=== PATIENT | male | born 1930 | race Caucasian/White ===

== ENCOUNTER 2017-06-30 13:04 | Day surgery (SDC) | payer MEDICARE ==
[2017-06-29 15:57] VITALS: BMI 26.6
[2017-06-30 13:55] LABS: Hematocrit 44.3 % (42.0-52.0); Mean Platelet Volume 6.5 fL (7.4-10.4); Red Blood Cell (RBC) Count 4.46 mill/uL (4.70-6.10); White Blood Cell (WBC) Count 20.5 thou/uL (4.8-10.8)
[2017-06-30 13:59] LABS: PTT 36.8 SEC (22.9-36.1); Prothrombin Time 15.2 SEC (12.0-14.7)
[2017-06-30 14:11] LABS: Band 1 % (5-11); Neutrophil 23 % (42-75); Reactive Lymphocytes 7 % (0-10)
[2017-06-30 14:17] LABS: ALT (SGPT) 19 U/L (8-55); AST (SGOT) 20 U/L (5-34); Alkaline Phosphatase 62 U/L (40-150); Anion Gap 11 mmol/L (10-20); BUN (Urea Nitrogen) 22 mg/dL (8.4-25.7); Bilirubin, Total 1.8 mg/dL (0.2-1.2); Calc. Creatinine Clearance 69 mL/min (70-130); Calcium 9.4 mg/dL (7.8-10.44); Carbon Dioxide 27 mmol/L (23-31); Chloride 102 mmol/L (98-107); Estimated GFR-MDRD 68; Globulin 2.6 g/dL (2.4-3.5); Protein, Total 6.9 g/dL (5.8-8.1)
[2017-06-30] MEDS ORDERED: Diprivan 20 ML ONE (14:39)
[2017-06-30] MEDS ORDERED: Propofol 200 MG/20 ML VIAL ONE (16:56)
--- NOTE | 2017-06-30 22:30 | OP ---
DATE OF PROCEDURE: 06/30/2017 REASON FOR PROCEDURE: Mr. Santos is an 86-year-old man with prior history of left atrial ablation p rocedalvino who has been well anticoagulated. Now, presents with recurrent atrial flutter here for a ca rdioversion. PROCEDURE IN DETAIL: The patient received deep sedation per Anesthesia specialist. After adequate l evel of sedation achieved, a 100 joule synchronized shock promptly converted the patient back to sinu s rhythm. CONCLUSION: Successful cardioversion. PLAN: Continue anticoagulation and consider antiarrhythmic agents if symptomatic atrial fibrillation or flutter recurs.
--- NOTE | 2017-07-01 07:47 | EKG ---
Test Reason : PREOP CARDIOVERSION Blood Pressure : / mmHG Vent. Rate : 075 BPM Atrial Rate : 300 BPM P-R Int : 000 ms QRS Dur : 080 ms QT Int : 422 ms P-R-T Axes : 106 -17 011 degrees QTc Int : 471 ms Atrial flutter with variable A-V block with premature ventricular or aberrantly conducted complexes Abnormal ECG When compared with ECG of 10-NOV-2014 10:37, ST now depressed in Inferior leads Nonspecific T wave abnormality now evident in Inferior leads Confirmed by MARICHUY CONRAD ([id number]) on 07/01/2017 7:47:17 AM Referred By: JOELLE Confirmed By:MARICHUY CONRAD
== END 2017-06-30 15:55 | disposition home or self-care (01) ==
LOC: CCL 13:04
PROVIDERS: ATTEND Internal Medicine Cardiovascular Disease
DX: I48.1 Persistent atrial fibrillation (principal); G47.33 Obstructive sleep apnea (adult) (pediatric); E78.5 Hyperlipidemia, unspecified; I10 Essential (primary) hypertension; F17.210 Nicotine dependence, cigarettes, uncomplicated; Z88.0 Allergy status to penicillin; Z79.01 Long term (current) use of anticoagulants; Z79.899 Other long term (current) drug therapy; Z99.89 Dependence on other enabling machines and devices
CPT/HCPCS: 36415; 80053; 85025; 85610; 85730; 92960; 93005; 93010; J2704

== ENCOUNTER 2019-03-22 08:16 | Day surgery (SDC) | payer MEDICARE ==
[2019-03-21 11:59] VITALS: BMI 25.0
--- NOTE | 2019-03-22 14:48 | OP ---
DATE OF PROCEDURE: 03/22/19 SURGEON: Jonathan Khoury M.D. PROCEDURE: Direct current cardioversion. INDICATION: Atypical atrial flutter. The patient has been compliant with his Xarelto for many months. We discussed the risks of electrical cardioversion - , worst heart rhythm, skin vyas, stroke, embolic event, etc. Patient was sedated by anesthesia. With 50 joules he returned to sinus rhythm with long first degree AV block. Patient tolerated the procedure well.
[2019-03-22] MEDS ORDERED: PROPOFOL 200 MG/20 ML VIAL ONE (17:00)
== END 2019-03-22 12:24 | disposition home or self-care (01) ==
LOC: CCL 08:16
PROVIDERS: ATTEND Internal Medicine Cardiovascular Disease
PROC: 5A2204Z Restoration of Cardiac Rhythm, Single (ICD-10-PCS; principal; 2019-03-22)
DX: I48.4 Atypical atrial flutter (principal); I48.0 Paroxysmal atrial fibrillation; I10 Essential (primary) hypertension; I34.0 Nonrheumatic mitral (valve) insufficiency; I83.019 Varicose veins of right lower extremity with ulcer of unspecified site; L97.919 Non-pressure chronic ulcer of unspecified part of right lower leg with unspecified severity; I49.9 Cardiac arrhythmia, unspecified; E78.00 Pure hypercholesterolemia, unspecified; G47.33 Obstructive sleep apnea (adult) (pediatric); E03.9 Hypothyroidism, unspecified; Z79.899 Other long term (current) drug therapy; Z79.01 Long term (current) use of anticoagulants; Z98.890 Other specified postprocedural states; Z87.891 Personal history of nicotine dependence; Z88.0 Allergy status to penicillin; Z99.89 Dependence on other enabling machines and devices
CPT/HCPCS: 93005; 93010; J2704

== ENCOUNTER 2019-08-04 14:29 | Inpatient (IN) | payer MEDICARE ==
[2019-08-04] MEDS ORDERED: Fentanyl 100 MCG/2 ML VIAL ONE (15:38)
[2019-08-04] MEDS ORDERED: Sodium Chloride 0.9% 1,000 ML IV SCH (19:47)
[2019-08-04] MEDS ORDERED: Ondansetron PF 4 MG/2 ML Vial IVP PRN (21:05)
[2019-08-04] MEDS ORDERED: Sodium Chloride 0.9% 500 ML IV SCH (21:15)
[2019-08-04 21:40] LABS: Lactic Acid 1.6 mmol/L (0.5-2.2)
[2019-08-04] MEDS: Sodium Chloride 0.9% 1,000 ML IV SCH (21:52)
[2019-08-04] MEDS ORDERED: MEROPENEM 1 GM/50 ML 1 GM in Premix Bag 1 BAG IVPB SCH (22:00)
--- NOTE | 2019-08-04 22:16 | HP ---
CHIEF COMPLAINT: Referral to ED by home healthcare nurse. HISTORY OF PRESENT ILLNESS: An 89-year-old male with multiple recent hospitalizations recently discharged on 07/19/2019 following hospitalization for acute urinary retention secondary to bladder outlet obstruction from BPH with multiple unsuccessful traumatic Valle catheter insertions complicated by gross hematuria, on oral anticoagulation, requiring indwelling Valle catheter placement in OR by urologist along with reduction of paraphimosis and subsequent discontinuation of oral anticoagulation, history of CLL, atrial fibrillation, hypertension, who was referred to a tertiary ER by home health care nurse for abnormal appearing Valle catheter bag prompting further evaluation. Details are limited and obtained from review of old chart documentation. In the ER, labs revealed a white blood cell count of 33.3 with 56% lymphocytes and 40% neutrophils, and chemistries revealed sodium 131, chloride 93, bicarb of 22 with anion gap of 20 and BUN and creatinine of 50/2.35. Urine output was noted to be dark and cloudy with urine in the Valle bag dark red per ER notes. The patient was bolused 1 L normal saline, administered 1 g IV Rocephin, and transferred to [facility] for further evaluation. In the emergency room, the patient was initiated on isotonic saline 100 mL/h and received 100 mcg of fentanyl with blood pressures ranging from 100 to 120s per documentation. Lactic acid level was unremarkable. Upon evaluation at bedside, the patient's blood pressures ranged from 80s to 90s systolic and the patient is in Trendelenburg position. He is easily arousable to verbal and tactile stimuli and answers appropriately and denies any complaints of headache, dizziness, lightheadedness, near-syncope, syncope, angina, confusion, or disorientation, but easily just off to sleep. Nursing staff notes 100 mcg of fentanyl was administered approximately 5 hours ago. The patient is currently receiving 500 mL normal saline bolus. He has Valle catheter bag with clear yellow-colored urine, approximately 525 mL that is being emptied. The patient denies any penile pain. He acknowledges living at home alone. He denies any complaints of falls or confusion. He does offer limited history about recent events and details. 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 PAST SURGICAL HISTORY: Indwelling Valle catheter placement, 07/15/2019, in OR following multiple unsuccessful attempts along with reduction of paraphimosis, cervical fusion, tonsillectomy. SOCIAL HISTORY: The patient reports living at home alone. He has home health care services. He reports that he still drives and performs activities of living by himself. He was recently discharged from acute inpatient rehabilitation. ALLERGIES: DOCUMENTED TO PENICILLINS. REVIEW OF SYSTEMS: Limited review of systems obtained from the patient. Pertinent positives noted as per HPI. Remainder of review of systems negative. MEDICATIONS: We will review once accurate verification can be obtained per admission medication reconciliation. FAMILY HISTORY: The patient denies any chronic medical comorbidities in family members. PHYSICAL EXAMINATION: VITAL SIGNS: T-max afebrile at 97.9; pulse is 69 to 78, atrial fibrillation; blood pressure initially documented in the ER ranged from 98/55 to 128/81. Current blood pressure 83/52, oxygen saturation 99% on room air, and respirations 14 to 16 and unlabored. GENERAL APPEARANCE: Thin, elderly male, drowsy in appearance, lying in Trendelenburg position, is easily arousable to verbal and noxious stimuli. Answering appropriately. HEENT: Normocephalic and atraumatic. Pupils equally round. Extraocular muscles intact. No facial asymmetry. NECK: Supple. CARDIOVASCULAR: S1 and S2. Irregularly irregular. No harsh murmurs. No chest wall tenderness. LUNGS: Bilateral equal air entry on bilateral anterior auscultation. Nonlabored respirations. No wheezing or rales. ABDOMEN: Soft, nontender, nondistended. EXTREMITIES: No appreciable edema in lower extremities. No cyanosis or deformities. SKIN: Warm to touch without rash, pallor, or abrasion. GENITOURINARY: There is indwelling Valle catheter noted currently with yellow-colored urine. There is no penile tenderness to palpation with overlying foreskin noted. There is some mild drainage at the penile tip is noted. LABORATORY DATA: Urinalysis reveals large blood, positive nitrites, moderate bilirubin, moderate leukocyte esterases, greater than 50 rbc's, 21 to 50 wbc's, 2+ bacteria, 4 to 6 squamous epithelial cells. Chemistry; sodium 131, potassium 4.3, chloride 93, bicarb 22, glucose 77, BUN and creatinine 50/2.35, T bilirubin 2.5, CK 703, lactic acid 1.4, albumin 3.5. WBC 33.3, H and H 12.5/39, differential reveals 56% lymphocytes, 40% neutrophils. IMAGING: None. ASSESSMENT: 1. Urinary tract infection secondary to chronic indwelling Valle catheter present on admission. The patient will be admitted as inpatient status. He recently had placement of indwelling Valle catheter secondary to acute urinary retention from bladder outlet obstruction, requiring urology intervention in the OR due to prior traumatic insertion and difficulty in placement. Records from outside ER facility notes urine is dark and cloudy in appearance and urinalysis suggesting concerns for gross urinary tract infection and gross hematuria. At this time, we will continue indwelling Valle catheter in place as yellow-colored urine is noted. We will continue IV fluids, IV antibiotics with Rocephin 1 g daily, follow urine cultures, and monitor for appropriate bladder emptying. I asked the nurse to monitor for any urine retention with bladder scan. We will monitor renal function. 2. Severe hypotension of unspecified etiology, possibly from #1 or from IV opioid administration in ER with 100 mcg of fentanyl in this elderly male. We will bolus 500 mL of normal saline and monitor for improvement in blood pressure. We will trend lactic acid levels to ensure no ongoing concerns for sepsis. If necessary, we will administer IV Narcan. 3. Acute kidney injury suspect secondary to prerenal etiology. Bladder outlet obstruction must be considered in this patient with recent placement of indwelling Valle catheter secondary to urinary retention. Currently, Valle catheter bag has yellow-colored urine, but was noted to have dark cloudy urine with gross hematuria and also in the ER. The patient was stopped off anticoagulation during recent hospitalization and unclear if he has been resuming this at home or not. We will repeat a.m. labs. 4. Hyponatremia, continue IV fluid resuscitation. Suspect secondary to dehydration and intravascular depletion. Check a.m. labs. 5. 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 The patient has a history of leukocytosis with lymphocyte predominance. 6. Chronic atrial fibrillation. The patient is currently in ventricular rate control. Hold oral anticoagulation, noting recent concerns for gross hematuria. 7. Generalized weakness and deconditioning. We will consult PT and OT. 8. History of hypothyroidism. Continue levothyroxine. 9. Deep venous thrombosis prophylaxis: Bilateral lower extremity sequential compression devices. 10. Check a.m. labs on 08/05/2019. CODE STATUS: Unspecified. The patient will be remained full code at this time. The patient reports the surrogate decision maker is daughter, Sandra. DISPOSITION: Inpatient admission. Anticipate greater than 2-minute stay. Job ID: [id number]
[2019-08-04] MEDS: cefTRIAXone\\ROCEPHIN 1 GM in Sodium Chloride 0.9% 100 ML IVPB SCH (22:45)
[2019-08-04 23:24] VITALS: BMI 25.3
[2019-08-05] MEDS: Sodium Chloride 0.9% 1,000 ML IV SCH (00:32)
[2019-08-05] MEDS: Acetaminophen 325 MG TAB PO PRN (04:50)
[2019-08-05 06:03] LABS: Anion Gap 10 mmol/L (10-20); BUN (Urea Nitrogen) 29 mg/dL (8.4-25.7); Calc. Creatinine Clearance 66 mL/min (70-130); Calcium 7.9 mg/dL (7.8-10.44); Carbon Dioxide 25 mmol/L (23-31); Chloride 102 mmol/L (98-107); Estimated GFR-MDRD 72; Glucose 80 mg/dL (83-110); Potassium 3.1 mmol/L (3.5-5.1); Sodium 134 mmol/L (136-145)
[2019-08-05 06:10] LABS: Eosinophils 1 % (0-10); Hemoglobin 11.4 g/dL (14.0-18.0); Lymphocytes 51 % (21-51); MDiff Complete? YES; Mean Corpuscular HGB CONC 33.6 g/dL (32.0-36.0); Mean Corpuscular Hemoglobin 31.8 pg (27.0-31.0); Mean Corpuscular Volume 94.6 fL (78.0-98.0); Monocytes 5 % (0-10); Neutrophil 43 % (42-75); Platelet Count 174 thou/uL (130-400); RBC Distribution Width 12.3 % (11.5-14.5); White Blood Cell (WBC) Count 20.7 thou/uL (4.8-10.8)
[2019-08-05] MEDS: Potassium Chloride 20 MEQ TAB PO SCH ×2 (13:14→16:40)
--- NOTE | 2019-08-05 13:59 | PRG ---
DATE OF SERVICE: 08/05/2019 SUBJECTIVE: The patient is seen and examined at the bedside. He does not have much complaints to offer. He does not have much pain. His appetite is fair. OBJECTIVE: VITAL SIGNS: Blood pressure is 100/61, pulse is 67, temperature is 98, maximal temperature is 98, respiratory rate is 18, and O2 saturation is 95% on room air. HEENT: Head is atraumatic and normocephalic. Eyes are PERRLA. Sclerae are nonicteric. Oral mucosa is moist. NECK: Supple. LUNGS: Breath sounds diminished at both bases. HEART: S1 and S2 normal. Somewhat irregular. No S3. No S4. ABDOMEN: Soft, nontender. Bowel sounds are present. No organomegaly. EXTREMITIES: 1+ peripheral edema similar bilaterally on both lower extremities. Valle catheter is in, yellowish urine present in the bag. LABORATORY DATA: White count of 20.7, hemoglobin 11.4, hematocrit 34.0, platelet count is 174,000. Chemistry showed sodium of 134, potassium 3.1, chloride 102, CO2 of 25, BUN 29, creatinine 0.98, glucose 80, calcium 7.9, magnesium 2.0. Microbiology, urine culture negative, two blood cultures negative so far. IMPRESSION: 1. Suspected urinary tract infection secondary to chronic indwelling Valle catheter. Questionable diagnosis at this point since urine culture is negative for any growth, although we will continue antibiotic for additional 24 hours and if it is still negative tomorrow, we will discontinue and the patient will be sent home. 2. Severe hypotension of unspecified etiology and most likely related to opioids use and some dehydration. 3. Elevated BUN, which is suggestive of some dehydration unless there is some GI blood loss. 4. Hypokalemia for replacement. We will give him 40 mEq of KCl now and 40 in 4 hours. We will reconcile his home medications and continue his Valle catheter management. If he is stable in the next 24 hours, he will be discharged home. 5. Hyponatremia, improved. 6. Chronic lymphocytic leukemia. 7. Chronic atrial fibrillation. We will restart his anticoagulation when his hemoglobin and blood pressure is more stable. 8. History of hypothyroidism on levothyroxine replacement. Job ID: [id number]
[2019-08-05] MEDS: Rivaroxaban 10 MG TAB PO SCH (16:39)
[2019-08-05] MEDS: Bisacodyl 10 MG SUPP PR PRN (16:40)
[2019-08-05] MEDS ORDERED: Non-Formulary Item 1 EACH (Rivaroxaban [Xarelto] 20 MG) PO SCH (17:00)
[2019-08-05] MEDS: Trospium 20 MG TAB PO SCH (22:14)
[2019-08-05] MEDS: Atorvastatin Calcium 10 MG TAB PO SCH (22:14)
[2019-08-05] MEDS: cefTRIAXone\\ROCEPHIN 1 GM in Sodium Chloride 0.9% 100 ML IVPB SCH (22:19)
[2019-08-05] MEDS ORDERED: Senokot 8.6 MG TAB PO PRN (23:00)
[2019-08-05] MEDS ORDERED: Polyethylene Glycol 3350 17 GM Packet PO SCH (23:15)
[2019-08-05] MEDS: Zolpidem Tartrate 5 MG TAB PO SCH (23:24)
[2019-08-06] MEDS: Levothyroxine Sodium 50 MCG TAB PO SCH (06:25)
[2019-08-06] MEDS: Acetaminophen 325 MG TAB PO PRN ×2 (06:34→14:17)
[2019-08-06 06:51] LABS: Band 1 % (5-11); Hemoglobin 11.8 g/dL (14.0-18.0); Hypochromia SLIGHT = 6-15 cells (100X) (0-5/hpf); Lymphocytes 63 % (21-51); MDiff Complete? YES; Mean Corpuscular HGB CONC 33.4 g/dL (32.0-36.0); Mean Corpuscular Hemoglobin 31.9 pg (27.0-31.0); Mean Corpuscular Volume 95.5 fL (78.0-98.0); Mean Platelet Volume 6.9 fL (7.4-10.4); Monocytes 2 % (0-10); Neutrophil 34 % (42-75); Platelet Count 194 thou/uL (130-400); Platelet Morphology Comment Appears Adequate; RBC Distribution Width 12.4 % (11.5-14.5); Red Blood Cell (RBC) Count 3.69 mill/uL (4.70-6.10); White Blood Cell (WBC) Count 21.7 thou/uL (4.8-10.8)
[2019-08-06 06:52] LABS: Anion Gap 11 mmol/L (10-20); BUN (Urea Nitrogen) 23 mg/dL (8.4-25.7); Calc. Creatinine Clearance 91 mL/min (70-130); Calcium 8.1 mg/dL (7.8-10.44); Carbon Dioxide 25 mmol/L (23-31); Chloride 103 mmol/L (98-107); Estimated GFR-MDRD Greater than 90; Glucose 91 mg/dL (83-110); Potassium 4.1 mmol/L (3.5-5.1); Sodium 135 mmol/L (136-145)
[2019-08-06] MEDS: Polyethylene Glycol 3350 17 GM Packet PO SCH (07:52)
[2019-08-06] MEDS: Trospium 20 MG TAB PO SCH ×2 (07:52→20:32)
[2019-08-06] MEDS ORDERED: Tamsulosin HCl 0.4 MG CAP PO SCH (09:00)
[2019-08-06] MEDS ORDERED: Hydrochlorothiazide 25 MG TAB PO SCH (09:00)
--- NOTE | 2019-08-06 12:22 | PDOC.HOSPP ---
- Subjective Encounter Date: 08/06/19 Encounter Time: 09:35 Subjective: +Constipation.. - Objective Vital Signs & Weight: Vital Signs (12 hours) Temp Pulse Resp BP BP Pulse Ox 08/06/19 12:13 97.3 F L 80 18 132/83 97 08/06/19 07:58 97.9 F 77 18 113/73 95 08/06/19 07:20 97.9 F 77 18 113/75 95 08/06/19 04:43 97.8 F 86 18 104/61 96 Weight Admit Weight 197 lb 3.2 oz Weight 197 lb 3.2 oz I&O: 08/05/19 08/06/19 08/07/19 06:59 06:59 06:59 Intake Total 1790 800 Output Total 4325 Balance -2535 800 Result Diagrams: 08/06/19 06:08 08/06/19 06:08 Hospitalist ROS - Medication Medications: Active Medications Generic Name Dose Route Start Last Admin Trade Name Freq PRN Reason Stop Dose Admin Acetaminophen 650 mg 08/04/19 21:05 08/06/19 06:34 Tylenol PO 650 mg Q4H PRN Administration Headache/Fever/Mild Pain (1-3) Atorvastatin Calcium 10 mg 08/05/19 21:00 08/05/19 22:14 Lipitor PO 10 mg HS MICHELLE Administration Bisacodyl 10 mg 08/05/19 15:48 08/05/19 16:40 Dulcolax HI 10 mg Q8H PRN Administration Constipation Ceftriaxone Sodium 1 gm/ 100 mls @ 200 mls/hr 08/04/19 22:00 08/05/19 22:19 Sodium Chloride IVPB 100 mls Q24HR MICHELLE Administration Levothyroxine Sodium 50 mcg 08/06/19 06:00 08/06/19 06:25 Synthroid PO 50 mcg 0600 MICHELLE Administration Polyethylene Glycol 17 gm 08/06/19 09:00 08/06/19 07:52 Miralax PO 17 gm DAILY MICHELLE Administration Rivaroxaban 20 mg 08/05/19 17:00 08/05/19 16:39 Xarelto PO 20 mg 1700 MICHELLE Administration Sodium Chloride 10 ml 08/04/19 21:00 08/06/19 07:52 Flush - Normal Saline IVF 10 ml Q12HR MICHELLE Administration Trospium 20 mg 08/05/19 21:00 08/06/19 07:52 Trospium PO 20 mg BID MICHELLE Administration Zolpidem Tartrate 10 mg 08/05/19 21:00 08/05/19 23:24 Ambien PO 10 mg HS MICHELLE Administration - Exam General Appearance: NAD Neck: no JVD Heart: irregular Respiratory: CTAB Gastrointestinal: soft Extremities: no edema Neurological: no weakness Psychiatric: normal affect Hosp A/P (1) UTI (urinary tract infection) Status: Acute (2) Hyponatremia Code(s): E87.1 - HYPO-OSMOLALITY AND HYPONATREMIA Status: Acute Plan: improving.. (3) Hypokalemia Code(s): E87.6 - HYPOKALEMIA Status: Acute Plan: Resolved.. (4) CLL (chronic lymphocytic leukemia) Code(s): C91.10 - CHRONIC LYMPHOCYTIC LEUK OF B-CELL TYPE NOT ACHIEVE REMIS Status: Chronic (5) Chronic anticoagulation Code(s): Z79.01 - ELIGIBILITY AND OCCUPANCY INTERVIEWER (CURRENT) USE OF ANTICOAGULANTS Status: Chronic (6) Hypothyroid Code(s): E03.9 - HYPOTHYROIDISM, UNSPECIFIED Status: Chronic (7) Leukocytosis Code(s): D72.829 - ELEVATED WHITE BLOOD CELL COUNT, UNSPECIFIED Status: Chronic Qualifiers: Leukocytosis type: lymphocytosis Qualified Code(s): D72.820 - Lymphocytosis (symptomatic) Plan: due to CLL - Plan Continue antibiotics.. f/u cultures..
[2019-08-06] MEDS: Rivaroxaban 10 MG TAB PO SCH (16:55)
[2019-08-06] MEDS: Bisacodyl 10 MG SUPP PR PRN (18:41)
[2019-08-06] MEDS: Atorvastatin Calcium 10 MG TAB PO SCH (20:32)
[2019-08-06] MEDS: cefTRIAXone\\ROCEPHIN 1 GM in Sodium Chloride 0.9% 100 ML IVPB SCH (20:39)
[2019-08-06] MEDS: Zolpidem Tartrate 5 MG TAB PO SCH (21:38)
[2019-08-07] MEDS: Levothyroxine Sodium 50 MCG TAB PO SCH (05:54)
[2019-08-07] MEDS: Trospium 20 MG TAB PO SCH ×2 (07:54→21:17)
[2019-08-07] MEDS: Polyethylene Glycol 3350 17 GM Packet PO SCH (07:54)
--- NOTE | 2019-08-07 10:43 | PDOC.HOSPP ---
- Subjective Encounter Date: 08/07/19 Encounter Time: 10:40 Subjective: No new complaint.. - Objective Vital Signs & Weight: Vital Signs (12 hours) Temp Pulse Resp BP BP Pulse Ox 08/07/19 08:00 98.0 F 08/07/19 07:54 98.0 F 76 18 157/88 H 98 08/07/19 00:00 97.9 F 83 16 149/89 H 96 Weight Admit Weight 197 lb 3.2 oz Weight 197 lb 3.2 oz I&O: 08/06/19 08/07/19 08/08/19 06:59 06:59 06:59 Intake Total 1790 2550 240 Output Total 4325 2800 Balance -2535 -250 240 Result Diagrams: 08/06/19 06:08 08/06/19 06:08 Hospitalist ROS - Medication Medications: Active Medications Generic Name Dose Route Start Last Admin Trade Name Freq PRN Reason Stop Dose Admin Acetaminophen 650 mg 08/04/19 21:05 08/06/19 14:17 Tylenol PO 650 mg Q4H PRN Administration Headache/Fever/Mild Pain (1-3) Atorvastatin Calcium 10 mg 08/05/19 21:00 08/06/19 20:32 Lipitor PO 10 mg HS MICHELLE Administration Bisacodyl 10 mg 08/05/19 15:48 08/06/19 18:41 Dulcolax [place] 10 mg Q8H PRN Administration Constipation Ceftriaxone Sodium 1 gm/ 100 mls @ 200 mls/hr 08/04/19 22:00 08/06/19 20:39 Sodium Chloride IVPB 100 mls Q24HR MICHELLE Administration Levothyroxine Sodium 50 mcg 08/06/19 06:00 08/07/19 05:54 Synthroid PO 50 mcg 0600 MICHELLE Administration Polyethylene Glycol 17 gm 08/06/19 09:00 08/07/19 07:54 Miralax PO 17 gm DAILY MICHELLE Administration Rivaroxaban 20 mg 08/05/19 17:00 08/06/19 16:55 Xarelto PO 20 mg 1700 MICHELLE Administration Sodium Chloride 10 ml 08/04/19 21:00 08/07/19 07:56 Flush - Normal Saline IVF 10 ml Q12HR MICHELLE Administration Trospium 20 mg 08/05/19 21:00 08/07/19 07:54 Trospium PO 20 mg BID MICHELLE Administration Zolpidem Tartrate 10 mg 08/05/19 21:00 08/06/19 21:38 Ambien PO 10 mg HS MICHELLE Administration - Exam Neck: no JVD Heart: irregular Respiratory: no ronchi Gastrointestinal: soft Extremities: 1+ LE edema Neurological: no weakness Psychiatric: normal affect Hosp A/P (1) UTI (urinary tract infection) Status: Acute (2) Hyponatremia Code(s): E87.1 - HYPO-OSMOLALITY AND HYPONATREMIA Status: Acute (3) CLL (chronic lymphocytic leukemia) Code(s): C91.10 - CHRONIC LYMPHOCYTIC LEUK OF B-CELL TYPE NOT ACHIEVE REMIS Status: Chronic (4) Chronic anticoagulation Code(s): Z79.01 - 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 (6) Leukocytosis Code(s): D72.829 - ELEVATED WHITE BLOOD CELL COUNT, UNSPECIFIED Status: Chronic Qualifiers: Leukocytosis type: lymphocytosis Qualified Code(s): D72.820 - Lymphocytosis (symptomatic) Plan: Due to CLL - Plan Hyponatremia improving. Continue antibiotics.. f/u cultures..
[2019-08-07] MEDS: Rivaroxaban 10 MG TAB PO SCH (16:43)
[2019-08-07] MEDS: Bisacodyl 10 MG SUPP PR PRN (16:48)
[2019-08-07] MEDS: cefTRIAXone\\ROCEPHIN 1 GM in Sodium Chloride 0.9% 100 ML IVPB SCH (21:16)
[2019-08-07] MEDS: Atorvastatin Calcium 10 MG TAB PO SCH (21:17)
[2019-08-07] MEDS: Zolpidem Tartrate 5 MG TAB PO SCH (22:27)
[2019-08-08] MEDS: Levothyroxine Sodium 50 MCG TAB PO SCH (05:12)
[2019-08-08 05:32] LABS: Anion Gap 10 mmol/L (10-20); BUN (Urea Nitrogen) 15 mg/dL (8.4-25.7); Calc. Creatinine Clearance 82 mL/min (70-130); Calcium 8.4 mg/dL (7.8-10.44); Carbon Dioxide 27 mmol/L (23-31); Chloride 100 mmol/L (98-107); Estimated GFR-MDRD Greater than 90; Glucose 91 mg/dL (83-110); Potassium 4.1 mmol/L (3.5-5.1); Sodium 133 mmol/L (136-145)
[2019-08-08] MEDS: Trospium 20 MG TAB PO SCH ×2 (08:08→20:17)
[2019-08-08] MEDS: Polyethylene Glycol 3350 17 GM Packet PO SCH (08:09)
--- NOTE | 2019-08-08 12:20 | PDOC.HOSPP ---
- Subjective Encounter Date: 08/08/19 Encounter Time: 12:18 Subjective: alert, just weak and shaky - Objective Vital Signs & Weight: Vital Signs (12 hours) Temp Pulse Resp BP BP Pulse Ox 08/08/19 11:56 97.7 F 87 18 124/74 96 08/08/19 08:29 98.6 F 66 18 145/77 H 94 L 08/08/19 08:14 93 L 08/08/19 04:00 98 F 76 16 119/65 93 L Weight Admit Weight 197 lb 3.2 oz Weight 197 lb 3.2 oz I&O: 08/07/19 08/08/19 08/09/19 06:59 06:59 06:59 Intake Total 2550 2190 Output Total 2800 3120 Balance -250 -930 Result Diagrams: 08/06/19 06:08 08/08/19 04:58 Hospitalist ROS - Medication Medications: Active Medications Generic Name Dose Route Start Last Admin Trade Name Freq PRN Reason Stop Dose Admin Acetaminophen 650 mg 08/04/19 21:05 08/06/19 14:17 Tylenol PO 650 mg Q4H PRN Administration Headache/Fever/Mild Pain (1-3) Atorvastatin Calcium 10 mg 08/05/19 21:00 08/07/19 21:17 Lipitor PO 10 mg HS MICHELLE Administration Bisacodyl 10 mg 08/05/19 15:48 08/07/19 16:48 Dulcolax [place] 10 mg Q8H PRN Administration Constipation Ceftriaxone Sodium 1 gm/ 100 mls @ 200 mls/hr 08/04/19 22:00 08/07/19 21:16 Sodium Chloride IVPB 100 mls Q24HR MICHELLE Administration Levothyroxine Sodium 50 mcg 08/06/19 06:00 08/08/19 05:12 Synthroid PO 50 mcg 0600 MICHELLE Administration Polyethylene Glycol 17 gm 08/06/19 09:00 08/08/19 08:09 Miralax PO 17 gm DAILY MICHELLE Administration Rivaroxaban 20 mg 08/05/19 17:00 08/07/19 16:43 Xarelto PO 20 mg 1700 MICHELLE Administration Sodium Chloride 10 ml 08/04/19 21:00 08/08/19 08:09 Flush - Normal Saline IVF 10 ml Q12HR MICHELLE Administration Trospium 20 mg 08/05/19 21:00 08/08/19 08:08 Trospium PO 20 mg BID MICHELLE Administration Zolpidem Tartrate 10 mg 08/05/19 21:00 08/07/19 22:27 Ambien PO 10 mg HS MICHELLE Administration - Exam Neck: no JVD Heart: no murmur, irregular Respiratory: CTAB Gastrointestinal: soft, normal bowel sounds Extremities: no edema Hosp A/P (1) Acute renal failure Status: Resolved Qualifiers: Acute renal failure type: unspecified Qualified Code(s): N17.9 - Acute kidney failure, unspecified (2) UTI (urinary tract infection) Status: Acute Qualifiers: Urinary tract infection type: acute cystitis Hematuria presence: with hematuria Qualified Code(s): N30.01 - Acute cystitis with hematuria (3) CLL (chronic lymphocytic leukemia) Code(s): C91.10 - CHRONIC LYMPHOCYTIC LEUK OF B-CELL TYPE NOT ACHIEVE REMIS Status: Chronic (4) Chronic anticoagulation Code(s): Z79.01 - SPORTS FITNESS AND WELLNESS DIRECTOR (CURRENT) USE OF ANTICOAGULANTS Status: Chronic (5) Hypothyroid Code(s): E03.9 - HYPOTHYROIDISM, UNSPECIFIED Status: Chronic Qualifiers: Hypothyroidism type: unspecified Qualified Code(s): E03.9 - Hypothyroidism , unspecified - Plan unfortunately cultures ars neg will cont iv antibx cont home meds PT/OT consult think
--- NOTE | 2019-08-08 16:22 | PQF ---
CLINICAL DOCUMENTATION IMPROVEMENT CLARIFICATION FORM: ICD-10 Updated PLEASE DO AN ADDENDUM TO THE PROGRESS NOTE WITH ANY DOCUMENTATION UPDATES OR ADDITIONS AND CARRY THROUGH TO DC SUMMARY. THANK YOU. DATE: 08/08/19 ATTN : DR. GAYLE Please exercise your independent, professional judgment in responding to the clarification form. Clinical indicators are provided on the bottom of this form for your review Please check appropriate box(es): [ ] Sepsis due to: (Pna, UTI, gangrenous gall bladder, etc.) Due to: [ ] Device (please specify) [ ] Implant [ ] Graft [ ] Infusion [ ] SIRS due to non-infectious process (please specify etiology) [ ] with organ dysfunction [ ] without organ dysfunction [ ] Severe sepsis with acute organ dysfunction of: (Examples: respiratory failure, encephalopathy, acute kidney failure, other) [ ] Septic Shock [ ] Localized infection without sepsis [ ] Other diagnosis [ x ] Unable to determine In addition, please specify: Present on Admission (POA): [ ] Yes [ ] No [ ] Unable to determine For continuity of documentation, please document condition throughout progress notes and discharge summary. Thank You. 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 All Rights Reserved Olya Conlee, RN [email or web address] Office: [phone] [facility]
[2019-08-08] MEDS: Rivaroxaban 10 MG TAB PO SCH (17:17)
[2019-08-08] MEDS: Atorvastatin Calcium 10 MG TAB PO SCH (20:16)
[2019-08-08] MEDS: Zolpidem Tartrate 5 MG TAB PO SCH (20:18)
[2019-08-08] MEDS: cefTRIAXone\\ROCEPHIN 1 GM in Sodium Chloride 0.9% 100 ML IVPB SCH (21:17)
[2019-08-09] MEDS: Levothyroxine Sodium 50 MCG TAB PO SCH (05:09)
[2019-08-09] MEDS: Polyethylene Glycol 3350 17 GM Packet PO SCH (07:56)
[2019-08-09] MEDS: Trospium 20 MG TAB PO SCH ×2 (07:56→20:03)
[2019-08-09 11:39] LABS: Eosinophils 2 % (0-10); Hemoglobin 13.3 g/dL (14.0-18.0); Lymphocytes 72 % (21-51); MDiff Complete? YES; Mean Corpuscular HGB CONC 33.7 g/dL (32.0-36.0); Mean Corpuscular Volume 95.1 fL (78.0-98.0); Mean Platelet Volume 6.6 fL (7.4-10.4); Monocytes 2 % (0-10); Neutrophil 23 % (42-75); Platelet Count 258 thou/uL (130-400); Platelet Morphology Comment Appears Adequate; RBC Distribution Width 12.6 % (11.5-14.5); RBC Morphology Normal; Reactive Lymphocytes 1 % (0-10); Red Blood Cell (RBC) Count 4.14 mill/uL (4.70-6.10); White Blood Cell (WBC) Count 33.9 thou/uL (4.8-10.8)
--- NOTE | 2019-08-09 13:12 | PDOC.HOSPP ---
- Subjective Encounter Date: 08/09/19 Encounter Time: 13:11 Subjective: no CO - Objective Vital Signs & Weight: Vital Signs (12 hours) Temp Pulse Resp BP Pulse Ox 08/09/19 11:48 97.4 F L 83 18 153/88 H 98 08/09/19 08:00 94 L 08/09/19 07:50 98.2 F 87 18 150/83 H 94 L Weight Admit Weight 197 lb 3.2 oz Weight 197 lb 3.2 oz I&O: 08/08/19 08/09/19 08/10/19 06:59 06:59 06:59 Intake Total 2190 2250 Output Total 3120 3800 Balance -930 -1550 Result Diagrams: 08/09/19 10:18 08/08/19 04:58 Hospitalist ROS - Medication Medications: Active Medications Generic Name Dose Route Start Last Admin Trade Name Freq PRN Reason Stop Dose Admin Acetaminophen 650 mg 08/04/19 21:05 08/06/19 14:17 Tylenol PO 650 mg Q4H PRN Administration Headache/Fever/Mild Pain (1-3) Atorvastatin Calcium 10 mg 08/05/19 21:00 08/08/19 20:16 Lipitor PO 10 mg HS MICHELLE Administration Bisacodyl 10 mg 08/05/19 15:48 08/07/19 16:48 Dulcolax SC 10 mg Q8H PRN Administration Constipation Ceftriaxone Sodium 1 gm/ 100 mls @ 200 mls/hr 08/04/19 22:00 08/08/19 21:17 Sodium Chloride IVPB 100 mls Q24HR MICHELLE Administration Levothyroxine Sodium 50 mcg 08/06/19 06:00 08/09/19 05:09 Synthroid PO 50 mcg 0600 MICHELLE Administration Polyethylene Glycol 17 gm 08/06/19 09:00 08/09/19 07:56 Miralax PO 17 gm DAILY MICHELLE Administration Rivaroxaban 20 mg 08/05/19 17:00 08/08/19 17:17 Xarelto PO 20 mg 1700 MICHELLE Administration Sodium Chloride 10 ml 08/04/19 21:00 08/09/19 07:57 Flush - Normal Saline IVF 10 ml Q12HR MICHELLE Administration Trospium 20 mg 08/05/19 21:00 08/09/19 07:56 Trospium PO 20 mg BID MICHELLE Administration Zolpidem Tartrate 10 mg 01/10/20 21:00 08/08/19 20:18 Ambien PO 10 mg HS MICHELLE Administration - Exam General Appearance: awake alert Neck: no JVD Heart: RRR Respiratory: CTAB Gastrointestinal: soft Extremities: no edema Hosp A/P (1) Acute renal failure Status: Resolved Qualifiers: Acute renal failure type: unspecified Qualified Code(s): N17.9 - Acute kidney failure, unspecified (2) UTI (urinary tract infection) Status: Acute Qualifiers: Urinary tract infection type: acute cystitis Hematuria presence: with hematuria Qualified Code(s): N30.01 - Acute cystitis with hematuria (3) CLL (chronic lymphocytic leukemia) Code(s): C91.10 - CHRONIC LYMPHOCYTIC LEUK OF B-CELL TYPE NOT ACHIEVE REMIS Status: Chronic (4) Chronic anticoagulation Code(s): Z79.01 - [facility] (CURRENT) USE OF ANTICOAGULANTS Status: Chronic (5) Hypothyroid Code(s): E03.9 - HYPOTHYROIDISM, UNSPECIFIED Status: Chronic Qualifiers: Hypothyroidism type: unspecified Qualified Code(s): E03.9 - Hypothyroidism , unspecified - Plan unfortunately cultures ars neg will cont iv antibx cont home meds PT/OT consult plan DC to SNF in AM
[2019-08-09] MEDS: Rivaroxaban 10 MG TAB PO SCH (17:16)
[2019-08-09] MEDS: Atorvastatin Calcium 10 MG TAB PO SCH (20:03)
[2019-08-09] MEDS: Acetaminophen 325 MG TAB PO PRN (20:03)
[2019-08-09] MEDS: Zolpidem Tartrate 5 MG TAB PO SCH (21:56)
[2019-08-09] MEDS: cefTRIAXone\\ROCEPHIN 1 GM in Sodium Chloride 0.9% 100 ML IVPB SCH (21:56)
[2019-08-10] MEDS: Levothyroxine Sodium 50 MCG TAB PO SCH (04:58)
[2019-08-10] MEDS: Trospium 20 MG TAB PO SCH (07:48)
[2019-08-10] MEDS: Polyethylene Glycol 3350 17 GM Packet PO SCH (07:48)
[2019-08-10] MEDS: Acetaminophen 325 MG TAB PO PRN (07:49)
--- NOTE | 2019-08-10 10:36 | DIS ---
DATE OF ADMISSION: 08/04/2019 DATE OF DISCHARGE: 08/10/2019 TRANSFER OF CARE NOTE: PRIMARY CARE PROVIDER: Listed as Derek Flores M.D. Discharged to swing bed at [facility] under the care of Dr. Richard. FINAL DIAGNOSES: Acute renal failure, urinary tract infection, chronic lymphocytic leukemia, chronic anticoagulation, hypothyroidism, hypotension, and chronic atrial fibrillation. DISCHARGE MEDICATIONS: 1. Rocephin 1 g IV piggyback q.24 hours or 48 more hours, then Omnicef 600 mg p.o. daily starting day after Rocephin is completed. 2. Zocor 20 mg a day. 3. Flomax 0.4 mg a day. 4. Zolpidem 10 mg a day. 5. Levothyroxine 50 mcg a day. 6. Hydrochlorothiazide 25 mg a day. 7. Xarelto 20 mg a day. 8. Tolterodine tartrate 4 mg a day. ALLERGIES: TO PENICILLINS. IT IS PERTINENT TO NOTE THAT HE HAS HAD NO REACTION TO CEPHALOSPORINS. DIET: Heart healthy diet. CODE STATUS: Full. PENDING AT TIME OF DISCHARGE: Nothing. HOSPITAL COURSE: The patient was admitted to the hospital for urinary tract infection with a Valle catheter present. Urinalysis revealed large blood, positive nitrites, and moderate bilirubin. Initial laboratory done in [facility] revealed a creatinine of 2.35 on 08/04. It has been within normal limits since then. Initial white count was 33,000 with 40% neutrophils and 50% lymphocytes. The patient's cultures were unfortunately negative, blood and urine. Urine was negative x2. The patient was treated with IV Rocephin, has been afebrile. He is doing much improved. His current laboratory still reveals a high white count with a lymphocytosis consistent with his chronic lymphocytic leukemia. His electrolytes reveal a slightly diminished sodium at 134, 135, 133 with normal BUN, creatinine, and potassium. He is being transferred to the [facility] for continuing care, PT/OT. Because his cultures were negative and he is doing well and has done well, he is being given Rocephin 2 more days at retirement facility and then will be given 7 days of Omnicef after that. Followup will be by Dr. Richadr at the [facility]. Job ID: [id number]
[2019-08-10 14:27] VITALS: BP 120/76; TEMP 97.4
== END 2019-08-10 15:56 | disposition swing bed (61) | DRG 699 ==
LOC: ERS 14:29 → T4-B 19:34
PROVIDERS: ADMIT Emergency Medicine; ATTEND Emergency Medicine
DX: T83.511A Infection and inflammatory reaction due to indwelling urethral catheter, initial encounter (principal); C91.10 Chronic lymphocytic leukemia of B-cell type not having achieved remission; N17.9 Acute kidney failure, unspecified; E87.1 Hypo-osmolality and hyponatremia; I48.20 Chronic atrial fibrillation, unspecified; N39.0 Urinary tract infection, site not specified; I10 Essential (primary) hypertension; N40.0 Benign prostatic hyperplasia without lower urinary tract symptoms; E03.9 Hypothyroidism, unspecified; I95.9 Hypotension, unspecified; E87.6 Hypokalemia; K59.00 Constipation, unspecified; Z98.1 Arthrodesis status; Z87.891 Personal history of nicotine dependence; Z88.0 Allergy status to penicillin; Z79.01 Long term (current) use of anticoagulants; Z79.899 Other long term (current) drug therapy; Z79.890 Hormone replacement therapy
CPT/HCPCS: 36415; 80048; 83605; 83735; 85025; 87040; 87086; 96361; 96374; J0696; J3010; J3490

== ENCOUNTER 2019-09-17 12:29 | Emergency (ER) | payer MEDICARE ==
[2019-09-17 12:59] LABS: Blood, Urine Large (Negative); Nitrite Negative (Negative); Protein, Urine (Dipstick) > or equal to 300 mg/dL (Neg-Trace)
[2019-09-17 13:03] LABS: Clarity Opaque (Clear)
[2019-09-17 13:11] LABS: Bilirubin Unable to Interpret (Negative); Glucose, Urine (Dipstick) Unable to Interpret mg/dL (Negative); Leukocyte Unable to Interpret (Negative); Urobilinogen UNABLE TO INTERPRET mg/dL (Less than 2)
[2019-09-17 13:12] LABS: RBC/HPF Greater than 50 HPF (0-3)
[2019-09-17 13:13] LABS: Squamous Epithelial None Seen HPF (0-3)
[2019-09-17 13:14] LABS: Bacteria/HPF Rare-Few HPF (None Seen)
--- NOTE | 2019-09-17 13:30 | ULT ---
Exam: Bilateral renal ultrasound complete: HISTORY: Hematuria COMPARISON: None FINDINGS: Right kidney: 10.5 x 4.6 x 4.4 cm Left kidney: 11.1 x 6.5 x 5.4 cm No renal hydronephrosis. No evidence for abnormal perinephric process. No solid or cystic renal mass. Valle catheter within an empty bladder IMPRESSION: Unremarkable bilateral renal ultrasound. No hydronephrosis or perinephric process.
[2019-09-17 13:44] LABS: Hemoglobin 12.3 g/dL (14.0-18.0); Mean Corpuscular HGB CONC 33.8 g/dL (32.0-36.0); Mean Corpuscular Hemoglobin 32.4 pg (27.0-31.0); Mean Corpuscular Volume 95.8 fL (78.0-98.0); Mean Platelet Volume 6.9 fL (7.4-10.4); Platelet Count 194 thou/uL (130-400); RBC Distribution Width 13.1 % (11.5-14.5); Red Blood Cell (RBC) Count 3.79 mill/uL (4.70-6.10); White Blood Cell (WBC) Count 21.6 thou/uL (4.8-10.8)
[2019-09-17 14:01] LABS: Eosinophils 1 % (0-10); Lymphocytes 69 % (21-51); MDiff Complete? YES; Monocytes 4 % (0-10); Neutrophil 24 % (42-75); Platelet Morphology Comment Appears Adequate; Polychromasia SLIGHT = 2-3 cells (100X) (0-2/hpf); Reactive Lymphocytes 1 % (0-10)
[2019-09-17 14:04] LABS: ALT (SGPT) 10 U/L (8-55); AST (SGOT) 15 U/L (5-34); Albumin 3.7 g/dL (3.4-4.8); Alkaline Phosphatase 98 U/L (40-110); Anion Gap 9 mmol/L (10-20); BUN (Urea Nitrogen) 18 mg/dL (8.4-25.7); Bilirubin, Total 1.2 mg/dL (0.2-1.2); Calc. Creatinine Clearance 0 mL/min (70-130); Calcium 8.9 mg/dL (7.8-10.44); Carbon Dioxide 30 mmol/L (23-31); Chloride 100 mmol/L (98-107); Estimated GFR-MDRD 79; Globulin 2.1 g/dL (2.4-3.5); Glucose 96 mg/dL (83-110); Potassium 4.3 mmol/L (3.5-5.1); Protein, Total 5.8 g/dL (5.8-8.1); Sodium 135 mmol/L (136-145)
--- NOTE | 2019-09-17 15:30 | CT ---
EXAM: Abdomen and pelvic CT scan without contrast: HISTORY: Hematuria COMPARISON: Renal ultrasound done today FINDINGS: Minimal linear and interstitial increased markings bilaterally. There are bilateral nodules including at least 2 pulmonary nodules in the left lower chest the largest up to 0.5 cm. And the right lung along the minor fissure there is a flat based intrapulmonary lymph node. Left hemidiaphragm elevation. Consider follow-up full chest CT scan in 6 months-1 year depending upon risk factors. Liver: Unremarkable. Gallbladder:Unremarkable. Pancreas:Unremarkable Spleen:Unremarkable. Adrenal glands:Unremarkable. Kidneys:No renal calculus or acute obstruction. 3.8 cm diameter cyst off the anterior aspect of the left upper kidney, this was not demonstrated on t he prior renal ultrasound study. No evidence for bowel obstruction. No CT evidence for acute appendicitis. Suprapubic catheter in the urinary bladder was some wall thickening. Somewhat triangular-shaped soft tissue density adjacent to the right inguinal canal opening possibly a postsurgical change. Reproductive system:Minimally prominent prostate gland. No abscess, adenopathy, or abnormal fluid collection within the abdomen or pelvis. IMPRESSION: Evidence for pulmonary nodules. 6 months-1 year follow-up for chest CT scan depending upon risk facto rs. Minimal nonspecific linear and interstitial increased markings in the lung bases having more chronic appearance or subsegmental atelectasis. 3.8 cm left upper anterior renal cysts without hydronephrosis. Other findings as above.
[2019-09-17] MEDS ORDERED: cefTRIAXone\\ROCEPHIN 2 GM VIAL ONE (16:36)
== END 2019-09-17 18:38 | disposition home or self-care (01) ==
LOC: ERS 12:29
DX: N39.0 Urinary tract infection, site not specified (principal); I48.91 Unspecified atrial fibrillation; I10 Essential (primary) hypertension; Z79.899 Other long term (current) drug therapy; Z79.01 Long term (current) use of anticoagulants
CPT/HCPCS: 36415; 74176; 76770; 80053; 81003; 81015; 85025; 87086; 96365; 96366; J0696

== ENCOUNTER 2019-09-18 17:19 | Emergency (ER) | payer MEDICARE | END 2019-09-18 19:20 | disposition home or self-care (01) | LOC: ERS 17:19 | DX: T83.091A Other mechanical complication of indwelling urethral catheter, initial encounter (principal); I49.9 Cardiac arrhythmia, unspecified; I48.91 Unspecified atrial fibrillation; E07.9 Disorder of thyroid, unspecified; I10 Essential (primary) hypertension; Z87.891 Personal history of nicotine dependence; Z79.01 Long term (current) use of anticoagulants; Z79.899 Other long term (current) drug therapy | CPT/HCPCS: 99283 ==

== ENCOUNTER 2019-09-30 11:15 | Inpatient (IN) | payer MEDICARE ==
[2019-09-30 12:12] LABS: Bilirubin Small (Negative); Blood, Urine Large (Negative); Glucose, Urine (Dipstick) Negative (Negative); Leukocyte Large (Negative); Nitrite Positive (Negative); Protein, Urine (Dipstick) 100 mg/dL (Neg-Trace)
[2019-09-30 12:15] LABS: Hemoglobin 12.5 g/dL (14.0-18.0); Mean Corpuscular HGB CONC 32.8 g/dL (32.0-36.0); Mean Corpuscular Hemoglobin 31.4 pg (27.0-31.0); Mean Corpuscular Volume 95.9 fL (78.0-98.0); Mean Platelet Volume 6.7 fL (7.4-10.4); Platelet Count 216 thou/uL (130-400); RBC Distribution Width 13.2 % (11.5-14.5); Red Blood Cell (RBC) Count 3.99 mill/uL (4.70-6.10); White Blood Cell (WBC) Count 24.9 thou/uL (4.8-10.8)
[2019-09-30 12:16] LABS: ALT (SGPT) 12 U/L (8-55); AST (SGOT) 15 U/L (5-34); Albumin 3.8 g/dL (3.4-4.8); Alkaline Phosphatase 98 U/L (40-110); Anion Gap 10 mmol/L (10-20); BUN (Urea Nitrogen) 18 mg/dL (8.4-25.7); Calc. Creatinine Clearance 0 mL/min (70-130); Carbon Dioxide 28 mmol/L (23-31); Chloride 99 mmol/L (98-107); Estimated GFR-MDRD 85; Globulin 2.2 g/dL (2.4-3.5); Glucose 90 mg/dL (83-110); Sodium 133 mmol/L (136-145)
[2019-09-30 12:19] LABS: Clarity Turbid (Clear)
[2019-09-30 12:20] LABS: RBC/HPF Greater than 50 HPF (0-3); Renal Epithelial 0-3 HPF (None Seen); Squamous Epithelial 0-3 HPF (0-3); Transitional Epithelial 0-3 HPF (None Seen); WBC/HPF Greater Than 50 HPF (0-3)
[2019-09-30 12:21] LABS: Bacteria/HPF 3+ HPF (None Seen)
[2019-09-30 12:22] LABS: Eosinophils 3 % (0-10); Lymphocytes 58 % (21-51); MDiff Complete? YES; Monocytes 5 % (0-10); Neutrophil 26 % (42-75); Platelet Morphology Comment Appears Adequate; Polychromasia SLIGHT = 2-3 cells (100X) (0-2/hpf); Reactive Lymphocytes 8 % (0-10)
[2019-09-30] MEDS ORDERED: Cefepime 2 GM VIAL ONE (13:46)
[2019-09-30] MEDS ORDERED: Vancomycin 1.5 GRAM/300 ML BAG 1.5 GM in Premix Bag 1 BAG IVPB SCH (14:00)
--- NOTE | 2019-09-30 16:11 | RAD ---
PORTABLE CHEST ONE VIEW: 09/30/19 at 2:56 p.m. HISTORY: Dyspnea. FINDINGS/IMPRESSION: Comparison is made with exam of 10/03/14. The heart size is borderline. The aorta is tortuous. No lobar consolidation, pneumothoraces, romy pu lmonary edema or pleural effusions are seen. POS: [facility]
[2019-09-30] MEDS ORDERED: Ondansetron PF 4 MG/2 ML Vial IVP PRN ×2 (17:16→18:41)
[2019-09-30] MEDS ORDERED: Acetaminophen 325 MG TAB PO PRN (17:16)
[2019-09-30] MEDS ORDERED: Ondansetron ODT 4 MG TAB SL PRN (17:16)
[2019-09-30 18:25] VITALS: BMI 23.5
[2019-09-30] MEDS ORDERED: Nitroglycerin 0.4 MG TAB (25 Tab Bottle) PO PRN (18:38)
[2019-09-30] MEDS ORDERED: Ondansetron ODT 4 MG TAB PO PRN (18:41)
[2019-09-30] MEDS ORDERED: Calcium Carbonate 500 MG ChewTAB PO PRN (18:41)
[2019-09-30] MEDS ORDERED: Mag-Al Plus 1200 MG/1200 MG/120 MG/30 ML UDCUP PO PRN (18:43)
--- NOTE | 2019-09-30 18:57 | HP ---
PRIMARY CARE PHYSICIAN: Derek Flores MD CHIEF COMPLAINT: Shortness of breath. HISTORY OF PRESENT ILLNESS: The patient is an 89-year-old male currently residing at assisted living facility at [facility], was sent to the emergency room for evaluation for shortness of breath. Please note, the patient is a poor historian. History was limited. At this time, he denies any shortness of breath, fever, or chills. He denies any other complaints. The patient was admitted at this facility in July for acute renal failure along with UTI. He was discharged to [facility] in [place] under the care of Dr. Richard. Approximately, 3 weeks ago, he was discharged to the assisted living facility. He was walking 350 feet several times a day with a rolling walker. Please note that the patient has a history of chronic urinary retention and has suprapubic catheter. He has a history of chronic atrial fibrillation and is on Xarelto. PAST MEDICAL HISTORY: 1. Chronic urinary retention 2. Recurrent UTIs. 3. Hypothyroidism. 4. Chronic atrial fibrillation, on anticoagulation. 5. Chronic insomnia. 6. Chronic lymphocytic leukemia. 7. Dementia. 8. Depression. PAST SURGICAL HISTORY: 1. Urologic procedure for reduction of paraphimosis. 2. Cervical fusion. 3. Tonsillectomy. ALLERGIES: THE PATIENT IS ALLERGIC TO PENICILLIN. CURRENT MEDICATIONS: At the assisted living facility; 1. Xarelto 20 mg daily. 2. Ambien at bedtime. 3. Synthroid 50 mcg daily. 4. Proscar 5 mg daily. 5. MiraLAX 17 g daily. 6. Zoloft 25 mg daily. 7. Flomax 0.4 mg daily. SOCIAL HISTORY: The patient currently lives at the assisted living facility. Ambulates with the help of a walker. He denies current use of tobacco, alcohol , or drug use. He is full code. His stepdaughter Shyanne is the primary decision maker. FAMILY HISTORY: Negative for chronic medical comorbidities. REVIEW OF SYSTEMS: Limited due to current cognitive status. PHYSICAL EXAMINATION: VITAL SIGNS: Temperature 97.8, respirations of 16, pulse of 76, blood pressure of 158/82, and O2 saturation 97% on room air. GENERAL: An 89-year-old male, in no apparent distress. Denies any complaint at this time. HEENT: Head, atraumatic and normocephalic. Sclerae are anicteric. Moist mucous membranes. No oral lesion. NECK: Supple. No JVD appreciated. No carotid bruit. LUNGS: Showed diminished air entry at bilateral bases with bibasilar rales and scattered rhonchi. No wheezing. HEART: S1 and S2 present. Irregularly irregular. No rubs or gallops. ABDOMEN: Soft and nontender. Bowel sounds present. No rebound or guarding. EXTREMITIES: There is bilateral lower extremity swelling, right more than left. No calf tenderness. SKIN: Warm and dry. LYMPH NODES: No palpable lymph nodes in the neck. PERIPHERAL VASCULAR: Radial pulses palpable bilaterally. MUSCULOSKELETAL: No joint swelling or tenderness. LABORATORY FINDINGS: CBC showed WBC 24.9, hemoglobin 12.5, hematocrit 38.3, and platelet 216. Chemistry showed sodium 133, potassium 4, chloride 99, bicarb 28 , BUN 18, and creatinine 0.85. BNP was 84.2. Troponin was negative. Urinalysis showed greater than 50 wbc's with 3+ bacteria. IMAGING STUDIES: Chest x-ray by my review was negative for acute findings. EKG by my review showed chronic atrial fibrillation. IMPRESSION: 1. Shortness of breath of unclear etiology. 2. Catheter associated urinary tract infection. 3. Chronic atrial fibrillation, on anticoagulation. 4. Chronic lymphocytic leukemia. 5. Depression. 6. Dementia. 7. Hypothyroidism. 8. Penicillin allergy. 9. Chronic kidney disease, stage 2. 10. Hyponatremia. 11. 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 PLAN: The patient will be monitored on the telemetry unit due to shortness of breath. Urine cultures and blood cultures have been sent. Empiric antibiotics will be started for UTI. His chest x-ray was negative. Pulmonary embolism appears to be less likely since the patient is on anticoagulation. Serial troponins will be obtained. We will resume selected home medications. Consult physical therapy. We will discuss the plan of care with the family when they arrive. Update: UTI - less likely per Dr Stewart prostate biopsy in last 1-2 days LOGAN Flores at [phone] Hold Xarelto until hematuria resolves per Dr Stewart Cont Omnicef x [address] Stewart Job ID: [id number] [facility]
[2019-09-30 19:36] LABS: Troponin I Less than 0.010 ng/mL (< 0.028)
[2019-09-30] MEDS ORDERED: cefTRIAXone\\ROCEPHIN 1 GM in Sodium Chloride 0.9% 100 ML IVPB SCH (20:00)
[2019-09-30] MEDS: Zolpidem Tartrate 5 MG TAB PO SCH (22:02)
[2019-09-30] MEDS: Saccharomyces boulardii 250 MG CAP PO SCH (22:03)
[2019-10-01 05:35] LABS: Anion Gap 10 mmol/L (10-20); BUN (Urea Nitrogen) 15 mg/dL (8.4-25.7); Calc. Creatinine Clearance 83 mL/min (70-130); Calcium 8.6 mg/dL (7.8-10.44); Carbon Dioxide 26 mmol/L (23-31); Chloride 100 mmol/L (98-107); Estimated GFR-MDRD Greater than 90; Glucose 95 mg/dL (83-110); Sodium 132 mmol/L (136-145)
[2019-10-01] MEDS: Levothyroxine Sodium 50 MCG TAB PO SCH (05:59)
[2019-10-01] MEDS: Finasteride 5 MG TAB PO SCH (09:03)
[2019-10-01] MEDS: Tamsulosin HCl 0.4 MG CAP PO SCH (09:03)
[2019-10-01] MEDS: Polyethylene Glycol 3350 17 GM Packet PO SCH (09:04)
--- NOTE | 2019-10-01 09:05 | PDOC.HOSPP ---
- Subjective Encounter Date: 10/01/19 Encounter Time: 09:03 Subjective: oriented to person only - Objective Vital Signs & Weight: Vital Signs (12 hours) Temp Pulse Resp BP Pulse Ox 10/01/19 07:30 98.8 F 74 20 108/57 L 95 09/30/19 23:36 97.1 F L 85 18 132/59 L 97 09/30/19 21:15 97.6 F 74 18 151/74 H 96 Weight Weight 183 lb I&O: 09/30/19 10/01/19 10/02/19 06:59 06:59 07:59 Intake Total 185 Output Total 1800 Balance -1615 Result Diagrams: 10/01/19 11:28 10/01/19 04:34 Hospitalist ROS - Medication Medications: Active Medications Generic Name Dose Route Start Last Admin Trade Name Freq PRN Reason Stop Dose Admin Ceftriaxone Sodium 1 gm/ 100 mls @ 200 mls/hr 09/30/19 20:00 09/30/19 20:03 Sodium Chloride IVPB 100 mls Q24HR MICHELLE Administration Levothyroxine Sodium 50 mcg 10/01/19 06:00 10/01/19 05:59 Synthroid PO 50 mcg 0600 MICHELLE Administration Saccharomyces Boulardii 250 mg 09/30/19 21:00 09/30/19 22:03 Florastor PO 250 mg HS MICHELLE Administration Zolpidem Tartrate 10 mg 09/30/19 21:00 09/30/19 22:02 Ambien PO 10 mg HS MICHELLE Administration - Exam General Appearance: NAD Neck: no JVD Heart: no murmur, irregular Respiratory: CTAB Gastrointestinal: soft, normal bowel sounds Extremities: no edema Neurological - other findings: uncooperative on CN testing, cooperative on strength testing Hosp A/P (1) Encephalopathy acute Code(s): G93.40 - ENCEPHALOPATHY, UNSPECIFIED Status: Acute (2) Gross hematuria Status: Acute (3) UTI (urinary tract infection) Status: Acute Qualifiers: Urinary tract infection type: acute cystitis Hematuria presence: with hematuria Qualified Code(s): N30.01 - Acute cystitis with hematuria (4) CLL (chronic lymphocytic leukemia) Code(s): C91.10 - CHRONIC LYMPHOCYTIC LEUK OF B-CELL TYPE NOT ACHIEVE REMIS Status: Chronic (5) Chronic anticoagulation Code(s): Z79.01 - SHELTER (CURRENT) USE OF ANTICOAGULANTS Status: Chronic (6) Hypothyroid Code(s): E03.9 - HYPOTHYROIDISM, UNSPECIFIED Status: Chronic Qualifiers: Hypothyroidism type: unspecified Qualified Code(s): E03.9 - Hypothyroidism , unspecified - Plan cbc- increased leukocyte count Urine C&S gm neg michelle change antibxto cefepime CT brain -no acute IC abnormality
--- NOTE | 2019-10-01 09:45 | CT ---
CT BRAIN WITHOUT CONTRAST: HISTORY:Acute encephalopathy. Altered mental status. Confusion and weakness COMPARISON:None FINDINGS: There are foci of decreased attenuation in the periventricular white matter, consistent with chronic small vessel ischemic disease. 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 The ventricular size is appropriate and the basilar cisterns are patent. The bony calvarium is intact. There is mucosal disease in the paranasal sinuses. IMPRESSION: No CT evidence of acute intracranial process.
--- NOTE | 2019-10-01 10:31 | RAD ---
EXAM: XR Abdomen 1 View/KUB PROVIDED CLINICAL HISTORY: Abdominal distention COMPARISON: None FINDINGS: The abdominal bowel gas pattern is nonspecific as visualized. The pelvis is not included. The supine nature the study is limited in sensitivity for detection of pneumoperitoneum. No radiographically apparent urinary tract calculi. IMPRESSION: Nonspecific bowel gas pattern.
[2019-10-01 11:48] LABS: Mean Corpuscular Hemoglobin 32.2 pg (27.0-31.0); Mean Corpuscular Volume 94.8 fL (78.0-98.0); Mean Platelet Volume 6.4 fL (7.4-10.4); Platelet Count 209 thou/uL (130-400); RBC Distribution Width 13.2 % (11.5-14.5); Red Blood Cell (RBC) Count 4.03 mill/uL (4.70-6.10); White Blood Cell (WBC) Count 23.2 thou/uL (4.8-10.8)
[2019-10-01 12:05] LABS: Eosinophils 3 % (0-10); Lymphocytes 49 % (21-51); MDiff Complete? YES; Monocytes 2 % (0-10); Neutrophil 45 % (42-75); Platelet Morphology Comment Appears Adequate
--- NOTE | 2019-10-01 12:21 | CON ---
DATE OF CONSULTATION: 10/01/2019 REASON FOR CONSULTATION: Abnormal rhythm on telemetry. PRIMARY CORRECTIVE AND MANUAL ARTS THERAPIST: Jonathan Khoury MD HISTORY OF PRESENT ILLNESS: Mr. Santos is a very pleasant 89-year-old white gentleman, who comes to the hospital for shortness of breath. He lives in the [facility] and was sent to the ER for increased shortness of breath. On my evaluation, he is not complaining of shortness of breath. He is only telling me that he feels very weak and he feels he is slowly dying as he is unable to feed himself. He had an evaluation that included normal BNP, negative troponins. Chest x-ray was clear, so no clear explanation as reason for shortness of breath. He does have a history of paroxysmal atrial fibrillation on chronic anticoagulation. He was recently admitted to the hospital for acute renal failure with UTI. He has an indwelling suprapubic catheter. 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 PAST MEDICAL HISTORY: 1. Urinary retention. 2. Recurrent UTIs. 3. Hypothyroidism. 4. Paroxysmal atrial fibrillation, on anticoagulation with Xarelto. 5. Insomnia. 6. Chronic lymphocytic leukemia. 7. Dementia. 8. Depression. PAST SURGICAL HISTORY: 1. Reduction of paraphimosis procedure. 2. Cervical fusion. 3. Tonsillectomy. ALLERGIES: PENICILLIN. OUTPATIENT MEDICATIONS: Include: 1. Xarelto 20 mg a day. 2. Ambien. 3. Synthroid 50 mcg a day. 4. Proscar 5 mg a day. 5. MiraLAX. 6. Zoloft. 7. Flomax. SOCIAL HISTORY: No alcohol, tobacco, or drugs. FAMILY HISTORY: Noncontributory. REVIEW OF SYSTEMS: A 12-point review of systems was done and was all negative unless stated in the history of present illness. PHYSICAL EXAMINATION: VITAL SIGNS: Temperature 98.8, pulse 74, respiratory rate 20, saturating 95% on room air, and blood pressure 108/57. GENERAL: Awake, alert, and oriented to person, place, and time. No hesitancy. No distress. HEENT: Normocephalic and atraumatic. NECK: Supple. LUNGS: Clear. CARDIOVASCULAR: S1 and S2. No S3 or S4. There is a grade 2/6 systolic murmur at the right upper sternal border. ABDOMEN: Soft. Positive bowel sounds. EXTREMITIES: No edema. SKIN: Warm and dry. LABORATORY DATA: Laboratory work was reviewed. CBC with a white count of 24, hemoglobin of 12, hematocrit 38, and platelet count of 216. Chemistry; sodium of 132, otherwise completely unremarkable with GFR of greater than 90. Troponin is undetectable. BNP was 84. UA; positive nitrites, 3+ urine bacteria. Urine cultures so far positive for gram-negative rods. Blood cultures are both negative. Telemetry was reviewed. His P wave morphology at the time where he was called to have complete heart block actually is different from his normal p.o. morphology, which would suggest this is an atrial tachycardia with variable AV conduction may be an atypical slow atrial flutter. ASSESSMENT: 1. Atrial tachycardia versus atrial flutter with variable AV block. 2. Possible urinary tract infection. 3. Failure to thrive. PLAN: 1. We will hold any AV mounika blocking agents. 2. Currently, his heart rate in the 70s to 80s with normal blood pressures. 3. If this is in fact an atrial flutter or slow atrial tach, this may be the reason why he has been short of breath. We will consult Electrophysiology. Currently , he is stable and may remain in the telemetry unit for now. 4. Continue antibiotics per Primary Team. Thank you for letting us participate in the care of your patient. We will follow. Job ID: [id number] [facility]
--- NOTE | 2019-10-01 16:25 | PDOC.EVN ---
Event Note - Event Note Event Note: alert, follows directions. much improved over this AM
[2019-10-01] MEDS ORDERED: Rivaroxaban 10 MG TAB PO SCH (17:00)
--- NOTE | 2019-10-01 17:05 | PDOC.EVN ---
Event Note - Event Note Event Note: patient with aacute encephalopathy, UTI, leukocytosis. will need 2+ overnites for C&S results, etc
[2019-10-01] MEDS: Saccharomyces boulardii 250 MG CAP PO SCH (21:55)
[2019-10-01] MEDS: Zolpidem Tartrate 5 MG TAB PO SCH (21:55)
[2019-10-01] MEDS: Cefepime 2 GM in Sodium Chloride 0.9% 100 ML IVPB SCH (21:57)
[2019-10-02] MEDS: Acetaminophen 325 MG TAB PO PRN ×2 (03:41→21:18)
[2019-10-02] MEDS: Levothyroxine Sodium 50 MCG TAB PO SCH (06:46)
[2019-10-02] MEDS: Polyethylene Glycol 3350 17 GM Packet PO SCH (08:58)
[2019-10-02] MEDS: Finasteride 5 MG TAB PO SCH (08:58)
[2019-10-02] MEDS: Tamsulosin HCl 0.4 MG CAP PO SCH (08:58)
[2019-10-02] MEDS: Cefepime 2 GM in Sodium Chloride 0.9% 100 ML IVPB SCH ×2 (08:58→21:16)
--- NOTE | 2019-10-02 10:31 | PDOC.HOSPP ---
- Subjective Encounter Date: 10/02/19 Encounter Time: 10:31 Subjective: alert, appropriate - Objective Vital Signs & Weight: Vital Signs (12 hours) Temp Pulse Resp BP Pulse Ox 10/02/19 07:25 98.2 F 75 16 109/55 L 98 10/02/19 04:26 97.9 F 70 18 100/55 L 98 10/01/19 23:00 98.6 F 85 16 134/74 97 Weight Admit Weight 183 lb Weight 183 lb I&O: 10/01/19 10/02/19 10/03/19 05:59 06:59 06:59 Intake Total Output Total Balance Result Diagrams: 10/01/19 11:28 10/01/19 04:34 Hospitalist ROS - Medication Medications: Active Medications Generic Name Dose Route Start Last Admin Trade Name Freq PRN Reason Stop Dose Admin Acetaminophen 650 mg 09/30/19 18:41 10/02/19 03:41 Tylenol PO 650 mg Q4H PRN Administration Headache/Fever/Mild Pain (1-3) Finasteride 5 mg 10/01/19 09:00 10/02/19 08:58 Proscar PO 5 mg DAILY MICHELLE Administration Cefepime HCl 2 gm/ Sodium 100 mls @ 200 mls/hr 10/01/19 21:00 10/02/19 08:58 Chloride IVPB 100 mls Q12HR MICHELLE Administration Levothyroxine Sodium 50 mcg 10/01/19 06:00 10/02/19 06:46 Synthroid PO 50 mcg 0600 MICHELLE Administration Polyethylene Glycol 17 gm 10/01/19 09:00 10/02/19 08:58 Miralax PO 17 gm DAILY MICHELLE Administration Saccharomyces Boulardii 250 mg 09/30/19 21:00 10/01/19 21:55 Florastor PO 250 mg HS MICHELLE Administration Sertraline HCl 25 mg 10/01/19 09:00 10/02/19 08:58 Zoloft PO 25 mg DAILY MICHELLE Administration Sodium Chloride 10 ml 09/30/19 18:38 10/02/19 08:58 Flush - Normal Saline IVF 10 ml PRN PRN Administration Saline Flush Tamsulosin HCl 0.4 mg 10/01/19 09:00 10/02/19 08:58 Flomax PO 0.4 mg DAILY MICHELLE Administration Zolpidem Tartrate 10 mg 09/30/19 21:00 10/01/19 21:55 Ambien PO 10 mg HS MICHELLE Administration - Exam General Appearance: NAD, awake alert Neck: no JVD Heart: no murmur, irregular Respiratory: CTAB Gastrointestinal: soft, normal bowel sounds Extremities: no edema Hosp A/P (1) Encephalopathy acute Code(s): G93.40 - ENCEPHALOPATHY, UNSPECIFIED Status: Acute (2) Gross hematuria Status: Acute (3) UTI (urinary tract infection) Status: Acute Qualifiers: Urinary tract infection type: acute cystitis Hematuria presence: with hematuria Qualified Code(s): N30.01 - Acute cystitis with hematuria (4) CLL (chronic lymphocytic leukemia) Code(s): C91.10 - CHRONIC LYMPHOCYTIC LEUK OF B-CELL TYPE NOT ACHIEVE REMIS Status: Chronic (5) Chronic anticoagulation Code(s): Z79.01 - FIELD TRAINING AGENT (CURRENT) USE OF ANTICOAGULANTS Status: Chronic (6) Hypothyroid Code(s): E03.9 - HYPOTHYROIDISM, UNSPECIFIED Status: Chronic Qualifiers: Hypothyroidism type: unspecified Qualified Code(s): E03.9 - Hypothyroidism , unspecified (7) Atrial fibrillation Code(s): I48.91 - UNSPECIFIED ATRIAL FIBRILLATION Status: Acute - Plan encephalopathy resolved cont cefeppime iv pending sensitivities cont to hold anticoag 24 more hrs
--- NOTE | 2019-10-02 17:04 | PDOC.CPN ---
- Subjective Date: 10/02/19 Time: 17:01 Interval history: No new issues. - Review of Systems General: reports: weight/appetite/sleep changes, fatigue. denies: fever/chills , night sweats Respiratory: denies: cough, congestion, shortness of breath, exercise intolerance Cardiovascular: denies: chest pain, palpitation, edema, paroxysmal nocturnal dyspnea, orthopnea Gastrointestinal: denies: nausea, vomiting, diarrhea, constipation, abd pain, GI bleeding Musculoskeletal: denies: pain, tenderness, stiffness, swelling, arthritis/ arthralgias Neurological: denies: numbness, syncope, seizure, weakness - Objective Allergies/Adverse Reactions: Allergies Allergy/AdvReac Type Severity Reaction Status Date / Time Penicillins Allergy Verified 08/10/19 17:26 Visit Medications: Current Medications Acetaminophen (Tylenol) 650 mg PO Q4H PRN PRN Reason: Headache/Fever/Mild Pain (1-3) Last Admin: 10/02/19 03:41 Dose: 650 mg Al Hydroxide/Mg Hydroxide (Maalox Plus) 30 ml PO Q4H PRN PRN Reason: Heartburn or Indigestion Calcium Carbonate (Tums) 1,000 mg PO Q4H PRN PRN Reason: Heartburn or Indigestion Finasteride (Proscar) 5 mg PO DAILY [facility] Last Admin: 10/02/19 08:58 Dose: 5 mg Cefepime HCl 2 gm/ Sodium (Chloride) 100 mls @ 200 mls/hr IVPB Q12HR [facility] Last Admin: 10/02/19 08:58 Dose: 100 mls Levothyroxine Sodium (Synthroid) 50 mcg PO 0600 [facility] Last Admin: 10/02/19 06:46 Dose: 50 mcg Nitroglycerin (Nitrostat) 0.4 mg PO Q5MIN PRN PRN Reason: Chest Pain Ondansetron HCl (Zofran Odt) 4 mg PO Q6H PRN PRN Reason: Nausea/Vomiting Ondansetron HCl (Zofran) 4 mg IVP Q6H PRN PRN Reason: Nausea/Vomiting Polyethylene Glycol (Miralax) 17 gm PO DAILY [facility] Last Admin: 10/02/19 08:58 Dose: 17 gm Saccharomyces Boulardii (Florastor) 250 mg PO HS [facility] Last Admin: 10/01/19 21:55 Dose: 250 mg Sertraline HCl (Zoloft) 25 mg PO DAILY [facility] Last Admin: 10/02/19 08:58 Dose: 25 mg Sodium Chloride (Flush - Normal Saline) 10 ml IVF PRN PRN PRN Reason: Saline Flush Last Admin: 10/02/19 08:58 Dose: 10 ml Tamsulosin HCl (Flomax) 0.4 mg PO DAILY [facility] Last Admin: 10/02/19 08:58 Dose: 0.4 mg Zolpidem Tartrate (Ambien) 10 mg PO HS [facility] Last Admin: 10/01/19 21:55 Dose: 10 mg Vital Signs & Weight: Vital Signs Temp Pulse Resp BP Pulse Ox 10/02/19 15:35 98.5 F 70 18 108/55 L 97 10/02/19 11:26 97.7 F 76 16 145/73 H 98 10/02/19 07:25 98.2 F 75 16 109/55 L 98 Admit Weight 183 lb Weight 183 lb - Physical Exam General: alert & oriented x3 HEENT: mucus membranes moist Neck: supple neck Cardiac: irregularly regular Lungs: clear to auscultation Neuro: grossly intact Abdomen: active bowel sounds Extremities: no edema Skin: clear Musculoskeletal: no pain - Labs Result Diagrams: 10/01/19 11:28 10/01/19 04:34 Troponin/CKMB Troponin I Less than 0.010 ng/mL (< 0.028) 09/30/19 19:03 - Telemetry Sinus rhythms and dysrhythmias: other (Sinus vrs. atrial tach.) - Assessment/Plan Assessment/Plan: 1. Atrial tahcycardia versus atrial flutter with variable block. Could also be Wenchebach at times with a very short CO interval at first. 2. Paroxysmal afib 3. Failure to thrive 4. Possible UTI, indwelling tolliver catheter. PLAN: - EP consultation for better evaluation of this rhythm. Hemodynamically stable for now.
[2019-10-02] MEDS: Saccharomyces boulardii 250 MG CAP PO SCH (21:17)
[2019-10-02] MEDS: Zolpidem Tartrate 5 MG TAB PO SCH (21:19)
[2019-10-03] MEDS: Levothyroxine Sodium 50 MCG TAB PO SCH (06:23)
[2019-10-03] MEDS: Tamsulosin HCl 0.4 MG CAP PO SCH (09:07)
[2019-10-03] MEDS: Polyethylene Glycol 3350 17 GM Packet PO SCH (09:07)
[2019-10-03] MEDS: Finasteride 5 MG TAB PO SCH (09:07)
[2019-10-03] MEDS: Cefepime 2 GM in Sodium Chloride 0.9% 100 ML IVPB SCH ×2 (09:08→21:04)
--- NOTE | 2019-10-03 15:27 | PDOC.HOSPP ---
- Subjective Encounter Date: 10/03/19 Encounter Time: 15:26 Subjective: Mr. Santos was seen today in follow-up of shortness of breath. He does not have any new complaints. He denies shortness of breath or chest pain. He also denies abdominal pain or flank pain. - Objective Vital Signs & Weight: Vital Signs (12 hours) Temp Pulse Resp BP Pulse Ox 10/03/19 12:47 97.9 F 75 22 H 120/58 L 96 10/03/19 08:00 99.0 F 73 18 111/58 L 97 10/03/19 04:00 97.5 F L 80 20 120/62 93 L Weight Admit Weight 183 lb Weight 176 lb 1.6 oz I&O: 10/02/19 10/03/19 10/04/19 06:59 06:59 06:59 Intake Total 1260 Output Total 1999 Balance -740 Result Diagrams: 10/01/19 11:28 10/01/19 04:34 Hospitalist ROS - Medication Medications: Active Medications Generic Name Dose Route Start Last Admin Trade Name Freq PRN Reason Stop Dose Admin Acetaminophen 650 mg 09/30/19 18:41 10/02/19 21:18 Tylenol PO 650 mg Q4H PRN Administration Headache/Fever/Mild Pain (1-3) Finasteride 5 mg 10/01/19 09:00 10/03/19 09:07 Proscar PO 5 mg DAILY MICHELLE Administration Cefepime HCl 2 gm/ Sodium 100 mls @ 200 mls/hr 10/01/19 21:00 10/03/19 09:08 Chloride IVPB 100 mls Q12HR MICHELLE Administration Levothyroxine Sodium 50 mcg 10/01/19 06:00 10/03/19 06:23 Synthroid PO 50 mcg 0600 MICHELLE Administration Polyethylene Glycol 17 gm 10/01/19 09:00 10/03/19 09:07 Miralax PO 17 gm DAILY MICHELLE Administration Saccharomyces Boulardii 250 mg 09/30/19 21:00 10/02/19 21:17 Florastor PO 250 mg HS MICHELLE Administration Sertraline HCl 25 mg 10/01/19 09:00 10/03/19 09:07 Zoloft PO 25 mg DAILY MICHELLE Administration Sodium Chloride 10 ml 09/30/19 18:38 10/02/19 21:21 Flush - Normal Saline IVF 10 ml PRN PRN Administration Saline Flush Tamsulosin HCl 0.4 mg 10/01/19 09:00 10/03/19 09:07 Flomax PO 0.4 mg DAILY MICHELLE Administration Zolpidem Tartrate 10 mg 09/30/19 21:00 10/02/19 21:19 Ambien PO 10 mg HS MICHELLE Administration - Exam Eye: PERRL Heart: RRR, no murmur, no gallops, no rubs Respiratory: CTAB, no wheezes, no rales, no ronchi, normal chest expansion Gastrointestinal: soft, non-tender, non-distended, normal bowel sounds, no palpable masses, no hepatomegaly Extremities: no cyanosis Hosp A/P (1) Atrial fibrillation Code(s): I48.91 - UNSPECIFIED ATRIAL FIBRILLATION Status: Acute (2) Gross hematuria Status: Acute (3) UTI (urinary tract infection) Status: Acute Qualifiers: Urinary tract infection type: acute cystitis Hematuria presence: with hematuria Qualified Code(s): N30.01 - Acute cystitis with hematuria (4) Hypothyroid Code(s): E03.9 - HYPOTHYROIDISM, UNSPECIFIED Status: Chronic Qualifiers: Hypothyroidism type: unspecified Qualified Code(s): E03.9 - Hypothyroidism , unspecified - Plan * Atrial fibrillation and atrial tachycardia- awaiting EP consult- he is now in sinus * UTI vs. Asymptomatic Bacteriuia- urine culture is growing Pseudomonas- aisha continue Cefepime * Hematuria- following prostate biopsy- continue to hold Xarelto * Hypothyroidism- clinically euthyroid
[2019-10-03] MEDS ORDERED: Zolpidem Tartrate 5 MG TAB PO SCH (21:00)
[2019-10-03] MEDS: Acetaminophen 325 MG TAB PO PRN (21:04)
[2019-10-03] MEDS: Saccharomyces boulardii 250 MG CAP PO SCH (21:04)
[2019-10-04] MEDS ORDERED: Lorazepam 2 MG/ML VIAL SLOW IVP SCH (00:30)
[2019-10-04] MEDS: Levothyroxine Sodium 50 MCG TAB PO SCH (06:15)
[2019-10-04] MEDS: Finasteride 5 MG TAB PO SCH (07:54)
[2019-10-04] MEDS: Polyethylene Glycol 3350 17 GM Packet PO SCH (07:54)
[2019-10-04] MEDS: Cefepime 2 GM in Sodium Chloride 0.9% 100 ML IVPB SCH (07:54)
[2019-10-04] MEDS: Tamsulosin HCl 0.4 MG CAP PO SCH (07:54)
--- NOTE | 2019-10-04 15:04 | PQF ---
CLINICAL DOCUMENTATION IMPROVEMENT CLARIFICATION FORM: ICD-10 Updated PLEASE DO AN ADDENDUM TO THE PROGRESS NOTE WITH ANY DOCUMENTATION UPDATES OR ADDITIONS AND CARRY THROUGH TO DC SUMMARY. THANK YOU. DATE: 10/04/2019 ATTN: Dr. Oneill Please exercise your independent, professional judgment in responding to the clarification form. Clinical indicators are provided on the bottom of this form for your review Please check appropriate box(s): [ X] Encephalopathy: Etiology: [ X ] Metabolic [ ] Septic [ ] Toxic [ ] Hypertensive [ ] Unspecified [ ] in the setting of underlying dementia [ ] Other (please specify) [ ] Other diagnosis [ ] Unable to determine In addition, please specify: Present on Admission (POA): [ X ] Yes [ ] No [ ] Unable to determine For continuity of documentation, please document condition throughout progress notes and discharge summary. Thank You. CLINICAL INDICATORS - SIGNS / SYMPTOMS / LABS / RESULTS AND LOCATION IN EMR ER Record 09/29: Doctor notes: Transfer for SOB, but without tachypnea, hypoxia, signs of cardiac compromise, WBC elevated however, and with indwelling tolliver catheter DX: Sepsis Dyspnea, UTI 09/30 (Miranda) Encephalopathy acute. UTI. Acute cystitis with hematuria PLAN cbc - increased leukocyte count Urine C&S gm neg michelle 10/01 (Ruben) -Plan encephalopathy resolved 10/02 (Nino) UTI vs. Asymptomatic Bacteriuria - urine culture is growing Pseudomonas RISKS: H&P 09/29: 89 yo pt has a history of chronic urinary retention and has suprapubic catheter. Impression: Catheter associated urinary tract infection. Chronic atrial fibrillation. Dementia. Hyponatremia. 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 TREATMENT: Order 09/29: Culture, Urine Stat 10/01 (Miranda) cont cefepime IV pending sensitivities Thank you, Shannan (This form is maintained as a part of the permanent medical record) 2014 [employer]. All Rights Reserved Shannan Qiu RN, BSN [email or web address] Office: [phone] [facility]
--- NOTE | 2019-10-04 15:19 | PDOC.HOSPP ---
- Subjective Encounter Date: 10/04/19 Encounter Time: 15:17 Subjective: Ms. Santos was seen today in follow-up of Hematuria and AFIB. He does not have any complaints. He denies chest pain or shortness of breath. - Objective Vital Signs & Weight: Vital Signs (12 hours) Temp Pulse Resp BP BP Pulse Ox 10/04/19 12:05 97.8 F 86 16 104/53 L 95 10/04/19 07:52 97.7 F 76 18 110/59 L 93 L 10/04/19 04:00 98.4 F 63 18 109/53 L 95 Weight Admit Weight 183 lb Weight 176 lb 1.6 oz I&O: 10/03/19 10/04/19 10/05/19 06:59 06:59 06:59 Intake Total 1260 700 Output Total 2000 750 Balance -740 -50 Result Diagrams: 10/01/19 11:28 10/01/19 04:34 Hospitalist ROS - Medication Medications: Active Medications Generic Name Dose Route Start Last Admin Trade Name Freq PRN Reason Stop Dose Admin Acetaminophen 650 mg 09/30/19 18:41 10/03/19 21:04 Tylenol PO 650 mg Q4H PRN Administration Headache/Fever/Mild Pain (1-3) Finasteride 5 mg 10/01/19 09:00 10/04/19 07:54 Proscar PO 5 mg DAILY MICHELLE Administration Cefepime HCl 2 gm/ Sodium 100 mls @ 200 mls/hr 10/01/19 21:00 10/04/19 07:54 Chloride IVPB 100 mls Q12HR MICHELLE Administration Levothyroxine Sodium 50 mcg 10/01/19 06:00 10/04/19 06:15 Synthroid PO Not Given 0600 MICHELLE Polyethylene Glycol 17 gm 10/01/19 09:00 10/04/19 07:54 Miralax PO 17 gm DAILY MICHELLE Administration Saccharomyces Boulardii 250 mg 09/30/19 21:00 10/03/19 21:04 Florastor PO 250 mg HS MICHELLE Administration Sertraline HCl 25 mg 10/01/19 09:00 10/04/19 07:54 Zoloft PO 25 mg DAILY MICHELLE Administration Sodium Chloride 10 ml 09/30/19 18:38 10/03/19 21:04 Flush - Normal Saline IVF 10 ml PRN PRN Administration Saline Flush Tamsulosin HCl 0.4 mg 10/01/19 09:00 10/04/19 07:54 Flomax PO 0.4 mg DAILY MICHELLE Administration Zolpidem Tartrate 5 mg 10/03/19 21:00 10/03/19 21:04 Ambien PO 5 mg HS MICHELLE Administration - Exam Eye: PERRL Heart: RRR, no murmur, no gallops, no rubs, normal peripheral pulses Respiratory: CTAB, no wheezes, no rales, no ronchi, normal chest expansion, no tachypnea, normal percussion Gastrointestinal: soft, non-tender, non-distended, normal bowel sounds, no palpable masses, no hepatomegaly Hosp A/P (1) Atrial fibrillation Code(s): I48.91 - UNSPECIFIED ATRIAL FIBRILLATION Status: Acute (2) Gross hematuria Status: Acute (3) UTI (urinary tract infection) Status: Acute Qualifiers: Urinary tract infection type: acute cystitis Hematuria presence: with hematuria Qualified Code(s): N30.01 - Acute cystitis with hematuria (4) Hypothyroid Code(s): E03.9 - HYPOTHYROIDISM, UNSPECIFIED Status: Chronic Qualifiers: Hypothyroidism type: unspecified Qualified Code(s): E03.9 - Hypothyroidism , unspecified - Plan * Atrial fibrillation and atrial tachycardia- continues in sinus- however await EP evaluation prior to discharge * UTI vs. Asymptomatic Bacteriuia- urine culture is growing Pseudomonas- continue Cefepime * Hematuria- following prostate biopsy- continue to hold Xarelto- plan is to follow-up with Dr. Stewart in a few weeks * Hypothyroidism- clinically euthyroid
[2019-10-04 16:03] VITALS: BP 154/66; TEMP 98.2
--- NOTE | 2019-10-04 17:07 | CON ---
DATE OF CONSULTATION: 10/04/2019 This is Monique Umaña NP dictating a report for Saravanan Alcantar MD. REASON FOR CONSULTATION: Possible complete heart block. REFERRING PHYSICIAN: Juanjose Peck MD PRIMARY PROGRAM CONSULTANT: Jonathan Khoury MD PRIMARY CARE PROVIDER: Derek Flores MD HISTORY OF PRESENT ILLNESS: Mr. Santos is an 89-year-old gentleman presented to [facility] for shortness of breath. He is a resident at [facility] and was sent to the emergency room for increasing shortness of breath. The patient reports feeling very weak, but does not remember why he was brought to the hospital. His evaluation showed a normal BNP with negative troponins. An EKG was performed in the ER showing an extensive first-degree AV block and telemetry tracing recorded an event that was initially interpreted as complete heart block, prompting EP consultation. REVIEW OF SYSTEMS: Mr. Santos does not have any ongoing complaints voiced right now other than weakness and low energy levels along with poor memory. Otherwise, a 12-point review of systems is negative. PAST MEDICAL HISTORY: 1. Urinary retention. 2. Recurrent UTIs. 3. Hypothyroidism. 4. Paroxysmal atrial fibrillation, anticoagulated with Xarelto. 5. Insomnia. 6. CLL. 7. Dementia. 8. Depression. 9. Paraphimosis. 10. Cervical fusion. 11. Tonsillectomy. ALLERGIES: PENICILLIN. HOME MEDICATIONS: Include 1. Xarelto 20 mg q.p.m. 2. Ambien. 3. Synthroid. 4. Proscar. 5. MiraLAX. 6. Zoloft. 7. Flomax. SOCIAL HISTORY: Negative for alcohol, tobacco, or illicit drug use. FAMILY HISTORY: Could not recall, but noncontributory by chart review. PHYSICAL EXAMINATION: VITAL SIGNS: Temperature 97.8, pulse 86, blood pressure 104/53, respirations 16, oxygen is 95% on room air. GENERAL: The patient is alert, oriented. Speech is clear. Affect is appropriate. The patient is in no apparent distress at the time of the exam. He is a very poor historian. Does not recall what brought him into the hospital. NECK: Supple without jugular venous distention. LUNGS: Clear to auscultation bilaterally without wheezes, crackles, or rhonchi. CARDIAC: Heart rate is regularly regular with a crisp S1, S2. PMI nondisplaced. ABDOMEN: Soft, nontender without palpable masses. There is an indwelling Valle. EXTREMITIES: Warm and dry to touch without clubbing, cyanosis, or edema. LABORATORY DATA: WBC 23.2, hemoglobin 13, platelet count is 209. Chemistry, potassium 4.0, creatinine 0.72. Liver enzymes within normal ranges. Troponin negative. BNP 84. Telemetry and EKGs show extensive first-degree AV block, 400 milliseconds. The event in question on September 30 shows second-degree Mobitz type 1 Wenckebach. QRS is narrow. No advanced AV block. No complete heart block. No second-degree type 2 AV block. IMPRESSION: 1. First-degree AV block, extensive. 2. Second-degree AV block type 1, Wenckebach. 3. History of atrial fibrillation with a prior PVI, on chronic anticoagulation with Xarelto. 4. Hypertension. 5. Dementia. PLAN AND RECOMMENDATIONS: Mr. Santos is seen to have an extensive first degree AV block and second-degree Mobitz type 1 Wenckebach. His QRS is narrow. No advanced AV block or complete heart block is seen and otherwise rhythm is stable without significant bradycardic or tachycardic episodes. With his history of atrial fibrillation, recommend continuing anticoagulation with Xarelto unless significant bleeding dyscrasias are seen. If he is symptomatic with his first degree AV block, pacing could be a consideration, but otherwise no medical therapy or invasive therapy is indicated at this time. Thank you for allowing us to participate in the care of this patient. Dr. Alcantar interviewed, examined the patient and developed this plan of care. Job ID: [id number]
--- NOTE | 2019-10-05 05:07 | DIS ---
DATE OF ADMISSION: 10/01/2019 DATE OF DISCHARGE: 10/04/2019 PRIMARY CARE PHYSICIAN: Dr. Derek Flores. DISCHARGE DISPOSITION: Back to assisted living. DISCHARGE DIAGNOSES: 1. Acute respiratory failure, unknown etiology. 2. Recurrent urinary tract infection. 3. Hematuria. 4. Chronic atrial fibrillation, on anticoagulation. 5. Dementia. 6. Depression. 7. Hypothyroidism. DISCHARGE MEDICATIONS: Include; 1. Please be aware that Xarelto is on hold due to hematuria until he is further evaluated by Dr. Stewart. This is anticipated in the next couple of weeks. 2. To continue on Omnicef 300 mg twice daily. 3. Levothyroxine 50 mcg daily. 4. Flomax 0.4 mg daily. 5. Ambien 10 mg at bedtime. 6. Tylenol 650 mg q.6. 7. Dulcolax 10 mg per rectum daily. 8. Proscar 5 mg daily. 9. MiraLAX 17 g daily. 10. Zoloft 25 mg p.o. daily. 11. Florastor 250 mg at bedtime. IMAGING DONE DURING THIS HOSPITAL STAY: The patient had a CT scan of the brain showing no evidence of any acute intracranial process. CODE STATUS: Full code. ALLERGIES: TO PENICILLIN. HOSPITAL COURSE: Mr. Santos is a pleasant 89-year-old gentleman, who was brought to the hospital after he was having complaints of difficulty breathing. It was unclear the etiology of the shortness of breath. He had a chest x-ray which was essentially clear. His serum troponins were negative as well as his natriuretic peptide. He was admitted to the hospital and evaluated by Cardiology. There was some concern that he was in atrial fibrillation or flutter, and for this reason, the plan was to have an Electrophysiology consult. However, by the time that the patient was seen by EP, he had basically converted spontaneously back into sinus rhythm. There was noted a first-degree AV block and his symptoms actually improved. It was also noted that he had some bacteriuria, but it is unclear whether or not he had any symptomatology from this. He does have an indwelling catheter and this could be related to that, i.e. asymptomatic bacteriuria colonization. The urine culture grew Pseudomonas. He was placed on cefepime for three days while he was in the hospital, which should be sufficient for the asymptomatic bacteriuria. He has history of chronic urinary tract infections and has been placed on Omnicef for prophylaxis and this will be resumed at the time of discharge. It is noted that he had an elevated white blood cell count, but in review of his records, his white blood cell count is persistently elevated for at least five years back. The patient is therefore clinically stable, afebrile, and at his baseline and is being transferred back to the assisted living facility. Job ID: [id number]
--- NOTE | 2019-10-06 04:20 | PQF ---
[employer] Crystal Reports Winform Viewer NICK STEVENSON TONI MD [id number] CLINICAL DOCUMENTATION CLARIFICATION FORM: POST DISCHARGE Addendum to original discharge summary date: ____ Late entry note date: __ DATE: 10/06/19 ATTN: Saeid Oneill Please exercise your independent, professional judgment in responding to the clarification form. Clinical indicators are provided on the bottom of this form for your review Can you please further clarify the diagnosis of the patient? Please check appropriate box(es): [ ] Sepsis due to: (Pna, UTI, gangrenous gall bladder, etc.) Due to: [ ] Device (please specify) [ ] Implant [ ] Graft [ ] Infusion [ ] Severe sepsis with acute organ dysfunction of: (Examples: respiratory failure, encephalopathy, acute kidney failure, other) [ X ] Localized infection without sepsis [ ] Other diagnosis [ ] Unable to determine In addition, please specify: Present on Admission (POA): [ X ] Yes [ ] No [ ] Unable to determine For continuity of documentation, please document condition throughout progress notes and discharge summary. Thank You. CLINICAL INDICATORS - SIGNS / SYMPTOMS / LABS ER Provider Repost p3 09/30 Final Primary: Sepsis H&P p2 09/29 Dr Medellin Vital signs: Temperature 97.8, respirations of 16, pulse of 76, blood pressure of 158/82 H&P p2 09/29 Dr Medellin CBC showed WBC 24.9 DS p1 10/03 Dr Oneill Recurrent urinary tract infection Physician documentation 10/03 Dr Oneill Metabolic Encephalopathy DS p1 10/03 Dr Oneill Acute Respiratory failure, unknown etiology RISK FACTORS H&P p1 3 Recurrent UTIs H&P p1 3 Chronic Lymphocytic leukemia H&P p1 09/29 89 years old H&P p 3/ Catheter associated UTI H&P p3 09/29- Acute respiratory failure TREATMENTS: IV Vancomycin 1.5g SEP 26 IVF SEP 26 IV Ceftriaxone/Rocephin SEP 26 IV Cefepime 2g SEP 26 Urine culture- Microbiology (This form is maintained as a part of the permanent medical record) 2014 [employer]. All Rights Reserved [email or web address]
--- NOTE | 2019-10-08 15:35 | EKG ---
Test Reason : Blood Pressure : / mmHG Vent. Rate : 065 BPM Atrial Rate : 065 BPM P-R Int : 000 ms QRS Dur : 082 ms QT Int : 430 ms P-R-T Axes : 000 -21 026 degrees QTc Int : 447 ms Atrial fibrillation with a competing junctional pacemaker Abnormal ECG Baseline Artifact Present Confirmed by NARA JAMES M.D. ([id number]), scientific publications editor YUMIKO SCHERER ([id number]) on 10/08/2019 3:34:37 PM Referred By: Confirmed By:NARA JAMES M.D.
== END 2019-10-04 19:45 | disposition home or self-care (01) | DRG 698 ==
LOC: ERS 11:15 → 2NO 15:07 → INTOOBSV 15:07 → OBSVTOIN 10-01 17:03
PROVIDERS: ADMIT Internal Medicine; ATTEND Internal Medicine
DX: T83.511A Infection and inflammatory reaction due to indwelling urethral catheter, initial encounter (principal); J96.01 Acute respiratory failure with hypoxia; G93.41 Metabolic encephalopathy; N30.01 Acute cystitis with hematuria; I48.19 Other persistent atrial fibrillation; C91.10 Chronic lymphocytic leukemia of B-cell type not having achieved remission; E87.1 Hypo-osmolality and hyponatremia; I44.0 Atrioventricular block, first degree; I35.0 Nonrheumatic aortic (valve) stenosis; E03.9 Hypothyroidism, unspecified; F03.90 Unspecified dementia, unspecified severity, without behavioral disturbance, psychotic disturbance, mood disturbance, and anxiety; F32.9 Major depressive disorder, single episode, unspecified; B96.5 Pseudomonas (aeruginosa) (mallei) (pseudomallei) as the cause of diseases classified elsewhere; G47.33 Obstructive sleep apnea (adult) (pediatric); F51.04 Psychophysiologic insomnia; Y73.8 Miscellaneous gastroenterology and urology devices associated with adverse incidents, not elsewhere classified; N18.2 Chronic kidney disease, stage 2 (mild); I48.0 Paroxysmal atrial fibrillation; I12.9 Hypertensive chronic kidney disease with stage 1 through stage 4 chronic kidney disease, or unspecified chronic kidney disease; Z88.0 Allergy status to penicillin; Z98.1 Arthrodesis status; Z79.01 Long term (current) use of anticoagulants; Z79.899 Other long term (current) drug therapy; Z79.890 Hormone replacement therapy
CPT/HCPCS: 36415; 70450; 71045; 74018; 80048; 80053; 81003; 81015; 83880; 84484; 85025; 87040; 87077; 87086; 87186; 93005; 93010; 94760; 96365; 96367; 96374; J0692; J0696; J2060; J3490

== ENCOUNTER 2019-10-06 12:24 | Emergency (ER) | payer MEDICARE ==
[2019-10-06 13:19] LABS: Mean Corpuscular HGB CONC 33.7 g/dL (32.0-36.0); Mean Corpuscular Hemoglobin 31.9 pg (27.0-31.0); Mean Corpuscular Volume 94.8 fL (78.0-98.0); Mean Platelet Volume 6.7 fL (7.4-10.4); Platelet Count 241 thou/uL (130-400); RBC Distribution Width 13.2 % (11.5-14.5); Red Blood Cell (RBC) Count 4.07 mill/uL (4.70-6.10); White Blood Cell (WBC) Count 24.3 thou/uL (4.8-10.8)
--- NOTE | 2019-10-06 13:31 | RAD ---
CHEST 1 VIEW PORTABLE: HISTORY: Shortness of breath. Discharged recently for sepsis. COMPARISON: 09/30/2019. FINDINGS: Heart size is upper range of normal. There is some mild vascular congestion with increased linear an d interstitial markings and some pleural thickening changes noted bilaterally. Overall appearance is stable. No confluent pneumonia, overt edema, or significant new pleural effusion. IMPRESSION: Stable chronic changes. No acute process. POS: TPC
[2019-10-06 13:38] LABS: Band 1 % (5-11); Eosinophils 5 % (0-10); Hypochromia SLIGHT = 6-15 cells (100X) (0-5/hpf); Lymphocytes 30 % (21-51); MDiff Complete? YES; Monocytes 6 % (0-10); Neutrophil 24 % (42-75); Platelet Morphology Comment Appears Adequate; Reactive Lymphocytes 34 % (0-10)
[2019-10-06 13:55] LABS: ALT (SGPT) 11 U/L (8-55); AST (SGOT) 15 U/L (5-34); Albumin 3.6 g/dL (3.4-4.8); Alkaline Phosphatase 101 U/L (40-110); Anion Gap 14 mmol/L (10-20); BUN (Urea Nitrogen) 19 mg/dL (8.4-25.7); Bilirubin, Total 0.9 mg/dL (0.2-1.2); Calc. Creatinine Clearance 0 mL/min (70-130); Calcium 8.5 mg/dL (7.8-10.44); Carbon Dioxide 24 mmol/L (23-31); Chloride 102 mmol/L (98-107); Estimated GFR-MDRD Greater than 90; Globulin 2.1 g/dL (2.4-3.5); Glucose 96 mg/dL (83-110); Potassium 4.5 mmol/L (3.5-5.1); Protein, Total 5.7 g/dL (5.8-8.1); Sodium 135 mmol/L (136-145)
--- NOTE | 2019-10-08 16:24 | EKG ---
Test Reason : Blood Pressure : / mmHG Vent. Rate : 081 BPM Atrial Rate : 074 BPM P-R Int : 000 ms QRS Dur : 080 ms QT Int : 406 ms P-R-T Axes : 000 -26 010 degrees QTc Int : 471 ms Undetermined rhythm Minimal voltage criteria for LVH, may be normal variant Possible Anterior infarct , age undetermined Abnormal ECG Confirmed by EMILY LOOMIS M.D. ([id number]), movie editor YUMIKO SCHERER ([id number]) on 10/08/2019 4:24:19 PM Referred By: Confirmed By:EMILY LOOMIS M.D.
== END 2019-10-06 17:27 ==
LOC: ERS 12:24
DX: R06.00 Dyspnea, unspecified (principal); D72.829 Elevated white blood cell count, unspecified; I49.9 Cardiac arrhythmia, unspecified; I48.91 Unspecified atrial fibrillation; E03.9 Hypothyroidism, unspecified; I10 Essential (primary) hypertension; N40.0 Benign prostatic hyperplasia without lower urinary tract symptoms; R01.1 Cardiac murmur, unspecified; J44.9 Chronic obstructive pulmonary disease, unspecified; Z87.891 Personal history of nicotine dependence; Z79.899 Other long term (current) drug therapy
CPT/HCPCS: 36415; 71045; 80053; 83880; 84484; 85025; 93005

== ENCOUNTER 2019-11-01 05:46 | Emergency (ER) | payer MEDICARE | END 2019-11-01 06:31 | LOC: ERS 05:46 | DX: T83.020A Displacement of cystostomy catheter, initial encounter (principal); I48.91 Unspecified atrial fibrillation; E03.9 Hypothyroidism, unspecified; I10 Essential (primary) hypertension | CPT/HCPCS: 51705 ==

== ENCOUNTER 2020-03-31 21:03 | Emergency (ER) | payer MEDICARE, OTHER ==
--- NOTE | 2020-03-31 21:49 | CT ---
CT OF THE BRAIN WITHOUT CONTRAST: 03/31/20 HISTORY: Injury, fall, headache. COMPARISON: 03/14/20. 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 The ventricular size is stable and the basilar cisterns patent. T he bony calvarium is intact. There is mucosal disease in the paranasal sinuses. IMPRESSION: No CT evidence of acute intracranial process. POS: DAMARISA
--- NOTE | 2020-03-31 22:00 | CT ---
CT OF CERVICAL SPINE PERFORMED WITHOUT CONTRAST ENHANCEMENT: 03/31/20 HISTORY: Fall with neck injury. The vertebral bodies are normal in height. The bones are diffusely demineralized. There is a retrolis thesis of C2 on C3 and minimal anterolisthesis of C5 on C6. Degenerative disc narrowing is seen at th e C7-T1 level. Some loss of vertebral body height of T2 which appears similar to the previous exam. Once again extensive postop fusion changes are noted. Moderately severe stenosis again demonstrates t he C2-3 level. This is related to the positioning of the facet joints which is a stable finding. Ther e is no CT evidence of acute injury. IMPRESSION: 1. Severe arthritic changes and extensive postop changes of the spine. No acute injury demonstra lamberto. 2. Chronic appearing lung changes in the lung apices. POS: OFF
== END 2020-03-31 23:32 ==
LOC: ERS 21:03
DX: S00.83XA Contusion of other part of head, initial encounter (principal); I49.9 Cardiac arrhythmia, unspecified; I48.91 Unspecified atrial fibrillation; E03.9 Hypothyroidism, unspecified; I10 Essential (primary) hypertension; N40.0 Benign prostatic hyperplasia without lower urinary tract symptoms; Z87.891 Personal history of nicotine dependence; Z79.899 Other long term (current) drug therapy; W01.0XXA Fall on same level from slipping, tripping and stumbling without subsequent striking against object, initial encounter; Y92.129 Unspecified place in nursing home as the place of occurrence of the external cause
CPT/HCPCS: 70450; 72125

== ENCOUNTER 2020-05-24 10:55 | Inpatient (IN) | payer MEDICARE ==
--- NOTE | 2020-05-24 11:10 | CT ---
CT Brain WO Con: 05/24/2020 11:02 AM CLINICAL HISTORY: Level 1 stroke alert; altered mental status; last seen normal at 20 minutes ago. IMAGING TECHNIQUE: Multiple CT images were obtained of the brain without IV contrast. COMPARISON: March 31, 2020 FINDINGS: BRAIN: Evidence of acute infarct: None. Evidence of chronic ischemic change:There is stable mild chronic small vessel white matter ischemic c hange of mild generalized cerebral and cerebellar atrophy. Evidence of intracranial hemorrhage: None. Evidence of midline shift: Third ventricle and septum pellucidum are midline. Ventricles: Normal. No hydrocephalus. SKULL: Small focal oval lucency involving the right frontal skull is stable to comparison dated Dece [id number] and may reflect a small hemangioma. No acute osseous abnormality is demonstrated. VISUALIZED PARANASAL SINUSES: Clear. MASTOID AIR CELLS: Clear. EXTRACRANIAL SOFT TISSUES: Normal. IMPRESSION: 1. No acute intracranial abnormality. 2. Findings called to Dr. Rollins at 11:07 AM on May 24, 2020
--- NOTE | 2020-05-24 11:28 | RAD ---
XR Chest 1 View Portable HISTORY: Altered mental status COMPARISON: 03/26/1920 FINDINGS: The heart size is borderline. The aorta is tortuous. Mild chronic changes again seen. The l ungs are without focal areas of consolidation, pneumothorax or pleural effusions. IMPRESSION: No radiographic evidence of acute cardiopulmonary process.
--- NOTE | 2020-05-24 11:50 | CT ---
EXAM: CT ANGIOGRAM OF THE HEAD AND NECK INDICATION: Stroke. Last seen normal at 20 minutes ago. Altered mental status. Patient started drooli ng. COMPARISON: None TECHNIQUE: CT angiogram of the head and neck are performed in the axial plane. Three-dimensional refo rmatted images are submitted for interpretation. FINDINGS: CTA OF THE HEAD WITH AND WITHOUT CONTRAST: POSTCONTRAST CT OF BRAIN: Pathologic enhancement: No pathologic enhancement the brain. Postcontrast soft tissue neck CT: Aerodigestive tract:Aerodigestive tract is patent. No mucosal abnormality. Sinuses: Adequate aeration. Orbits: Bilateral ocular lens implants are appropriately located. Both globes are intact. Retrobulbar fat is preserved. Symmetric attenuation the optic nerves and ocular rectus muscles. Salivary glands:Symmetric attenuation Thyroid gland: Grossly unremarkable. Lymph nodes: No evidence of lymphadenopathy by size criteria. Paraspinal muscles: Symmetric attenuation of the sternocleidomastoid muscles. Appropriate attenuation of the paraspinal muscles. Cervical spine:Diffuse bone demineralization. Extensive fusion of the posterior elements from C3 thro ugh C6. Mild loss of vertebral body height at T2, T3. Moderate loss of vertebral height at T5 and T7. Findings are presumed to be chronic. Upper mediastinum and lung apices: There is fluid in the visualized thoracic esophagus. There is debr is in the distal trachea. Incompletely evaluated opacity peripheral enhancement in the superior segment of the left lower lobe. CTA OF THE NECK WITH CONTRAST: Aorta: Atherosclerosis. No aneurysm or dissection. Right carotid artery: Appropriate enhancement and luminal diameter of the origin of the right carotid artery, innominate artery, common carotid artery. There is calcified plaque in the proximal right internal carotid artery. There is mild stenosis, based upon NASCET criteria. The mid to distal newsroom intern al carotid artery has appropriate enhancement and luminal diameter. Left carotid: Appropriate enhancement and luminal diameter of the origin left carotid artery, common carotid artery. There is calcified plaque in the distal common carotid artery and carotid bifurcation without significant stenosis, based upon NASCET criteria. There is appropriate enhancemen t and luminal diameter of the proximal mid and internal carotid artery. Subclavian arteries:Symmetric and patent Vertebral arteries:Patent throughout their course in the neck. Dominant right vertebral artery. CTA OF THE BRAIN: Intracranial internal carotid arteries:Atherosclerosis involving bilateral paraclinoid segments. Anterior circulation: Appropriate enhancement and luminal diameter of the A1 segments, proximal A2 se gments, M1 segments and proximal MCA branches. Intracranial vertebral arteries: Patent. Bilateral PICA artery origins have appropriate enhancement a nd luminal diameter. Posterior circulation: Both vertebral arteries supply normal caliber basilar artery. Symmetric enhanc ement and luminal diameter of the P1 segments. IMPRESSION: 1. No hemodynamically significant stenosis, occlusion or aneurysmal formation. 2. Incompletely evaluated peripherally enhancing focus in the posterior left pleural margin. Consider chest CT. Results study conveyed to Cydney Fregoso 05/24/2020 at 11:49 AM Code CR Transcribed Date/Time: 05/24/2020 11:59 AM
[2020-05-24 12:00] LABS: Hemoglobin 13.2 g/dL (14.0-18.0); Mean Corpuscular HGB CONC 32.9 g/dL (32.0-36.0); Mean Corpuscular Hemoglobin 31.1 pg (27.0-31.0); Mean Corpuscular Volume 94.5 fL (78.0-98.0); Mean Platelet Volume 6.7 fL (7.4-10.4); Platelet Count 231 thou/uL (130-400); RBC Distribution Width 15.3 % (11.5-14.5); Red Blood Cell (RBC) Count 4.24 mill/uL (4.70-6.10); White Blood Cell (WBC) Count 27.4 thou/uL (4.8-10.8)
[2020-05-24 12:13] LABS: Bacteria/HPF None Seen HPF (None Seen); Bilirubin Negative (Negative); Blood, Urine Negative (Negative); Calcium Oxalate Crystals Rare HPF (None Seen); Glucose, Urine (Dipstick) Normal (Negative); Ketone, Urine Negative (Negative); Leukocyte 500 Leu/uL (Negative); Mucous/LPF 1+ LPF (<2+); Nitrite Negative (Negative); Protein, Urine (Dipstick) 30 mg/dL (Neg-Trace); Specific Gravity, Urine 1.032 (1.002-1.036); Squamous Epithelial 0-3 HPF (0-3); WBC/HPF Greater than 50 HPF (0-3)
[2020-05-24 12:15] LABS: Clarity Hazy (Clear)
[2020-05-24 12:28] LABS: ALT (SGPT) 9 U/L (8-55); AST (SGOT) 14 U/L (5-34); Albumin 3.4 g/dL (3.4-4.8); Alkaline Phosphatase 87 U/L (40-110); Anion Gap 18 mmol/L (10-20); BUN (Urea Nitrogen) 14 mg/dL (8.4-25.7); Bilirubin, Total 0.6 mg/dL (0.2-1.2); CK (CPK) 33 U/L (30-200); Calc. Creatinine Clearance 0 mL/min (70-130); Calcium 8.6 mg/dL (7.8-10.44); Carbon Dioxide 21 mmol/L (23-31); Chloride 104 mmol/L (98-107); Estimated GFR-MDRD 83; Globulin 1.8 g/dL (2.4-3.5); Glucose 99 mg/dL (83-110); Potassium 3.9 mmol/L (3.5-5.1); Protein, Total 5.2 g/dL (5.8-8.1); Sodium 139 mmol/L (136-145)
[2020-05-24 12:37] LABS: MDiff Complete? YES
[2020-05-24 12:38] LABS: Anisocytosis SLIGHT = 6-15 cells (100X) (0-5/hpf); Band 1 % (5-11); Eosinophils 1 % (0-10); Lymphocytes 83 % (21-51); Monocytes 1 % (0-10); Neutrophil 13 % (42-75); Ovalocytes SLIGHT = 2-5 cells (100X) (0-1/hpf); Platelet Morphology Comment Appears Adequate; Polychromasia SLIGHT = 2-3 cells (100X) (0-2/hpf); Reactive Lymphocytes 1 % (0-10); Reflex for Review?? NO
--- NOTE | 2020-05-24 13:33 | CT ---
CT CHEST WITH IV CONTRAST: Date: 05/24/2020 HISTORY: Abnormality noted on the CTA of head and neck of earlier today. FINDINGS: There are calcified pleural plaques bilaterally, most prominent in the apices on either side. There i s mucus in the javier to the left of midline. Patient is at high risk for aspiration. There is a tiny left pleural effusion with adjacent infiltrate. No pneumothoraces are seen. There are solid-appearin g nodules in the right upper lobe measuring 7.0 mm and 3.0 mm, respectively. A 4.0 mm nodule is seen in the peripheral aspect of the right lower lobe. Upper abdominal tomograms demonstrate bilateral renal cysts and a 13.0 mm low density lesion in the l eft lobe of the liver. There are degenerative changes in the spine. There is a 1.0 cm left paratracheal mediastinal lymph no de. No pericardial or right pleural effusion is seen. No pneumothoraces are identified. There are old compression abnormalities of the upper thoracic vertebra. IMPRESSION: 1. Calcified bilateral pleural plaques. Question asbestos exposure. 2. Mucus in the javier and tiny left pleural effusion with adjacent infiltrate, suspicious for aspir ation. 3. Indeterminate lung nodules. A follow-up CT scan of the chest is recommended in 6 months. POS: ROMIE
[2020-05-24] MEDS ORDERED: Heparin 1,000 UNITS/ML VIAL ONE (13:37)
[2020-05-24] MEDS ORDERED: Vancomycin 1 GM/200 ML BAG ONE (14:00)
[2020-05-24] MEDS ORDERED: cefTRIAXone\\ROCEPHIN 2 GM VIAL ONE (14:00)
[2020-05-24] MEDS ORDERED: Iopamidol-370 76% 500 ML 1 ML ONE ×2 (14:14→14:16)
[2020-05-24 15:05] LABS: Lactic Acid 1.7 mmol/L (0.5-2.2)
--- NOTE | 2020-05-24 16:12 | PDOC.HHP ---
Hospitalist HPI - History of Present Illness He became unresponsive during activity this morning History of Present Illness: This patient is an 89-year-old skilled nursing resident who currently resides [place] house was sent in from his skilled nursing with above complaint. History is very limited as patient probably has some form of baseline dementia. He does not know how he ended up in the hospital or why he is in the hospital. He apparently was earlier this morning doing activity when he suddenly slumped over and had a momentary loss of consciousness. EMS was summoned to the skilled nursing and he was promptly brought here for further evaluation and management. When I saw the patient today he is awake and alert however he is unable to provide or clarify any further information. He has had multiple imaging studies including CT of the head that did not show any acute finding. He also had CT angiogram of the neck and the brain and there was no acute pathology noted. He was found to have evidence of a urinary tract infection and has been admitted for further stabilization. He denied any headache,. No nausea, no vomiting, no dizziness, no palpitations. Apparently his NIH score on admission was over 9. However on my exam at this time he is awake and alert and oriented. His speech is slow but comprehensible. No facial drooping was noted. He does have global weakness. It is unclear what his baseline functioning is however. He did tell me that he can get around with a walker. Hospitalist ROS - Review of Systems ROS unobtainable: due to mental status Constitutional: reports: fever, chills, weakness, malaise Eyes: reports: conjunctivae inflammation, redness ENT: denies: ear pain, ear discharge, nose pain, nose discharge, nose congest ion, mouth pain, mouth swelling, throat pain, throat swelling, other Respiratory: denies: cough, dry, shortness of breath, hemoptysis, SOB with excertion, pleuritic pain, sputum, wheezing, other Cardiovascular: denies: chest pain, palpitations, orthopnea, paroxysmal noc. dyspnea, edema, light headedness, other Gastrointestinal: reports: nausea, other (he reports constipation) Genitourinary: reports: dysuria Neurological: reports: weakness Hospitalist History - Past Medical History Source: RN notes reviewed, skilled nursing record, old records Cardiac: reports: HTN Pulmonary: reports: high cholesterol ACCOUNT SERVICES MANAGER: reports: Dementia Gastrointestinal: reports: GERD Heme/Onc: denies: no pertinent history, Anemia NOS, B12 deficiency, Cancer, Hemochromatosis, Iron deficiency anemia, Sickle cell disease, Sickle cell trait, Other Psych: denies: no pertinent history, Anxiety, Addictions, Bipolar, Depression, Panic, Psychosis, Schizophrenia, Other Infectious Disease: denies: no pertinent history, Bacterial vaginosis, [place], Gonorrhea, HIV, Human papilloma virus, Herpes simplex 1, Herpes simplex 2, Herpes zoster, Other ENT: denies: no pertinent history, Sinusitis, Allergic rhinitis, Other Renal/: reports: UTI. denies: no pertinent history, Chronic renal insuff, Acute renal failure, Chronic renal failure, Benign prostatic enlarg., Hematuria, Other Endocrine: reports: Hypothyroidism Dermatology: denies: no pertinent history, Eczema, Cellulitis, Psoriasis, Melanoma, Basal cell, Squamous cell, Other - Past Surgical History Past Surgical History: reports: no pertinent history, Other (He reports no previous surgical history.) - Family History Family History: reports: Other (Family history could not be obtained due to the patient poor mental status at this moment.) - Social History Smoking Status: Former smoker (He is a reformed smoker and he quit in 1964.) Alcohol: reports: Occassional (He reports occasional beer.) Living Situation: Correction Activity level: uses cane/walker - Exam General Appearance: ill appearing General - other findings: He looks very unkempt. Eye - other findings: he has matted and mucoid secretions ENT: normocephalic atraumatic, dry oral mucosa Neck: supple, symmetric, no JVD, no thyromegaly, no lymphadenopathy Heart: RRR, no murmur, no gallops, no rubs Respiratory: CTAB, no wheezes, no rales, no ronchi, normal chest expansion Gastrointestinal: soft, non-tender, non-distended, normal bowel sounds, no palpable masses, no hepatomegaly, no splenomegaly, no bruit Extremities: no cyanosis, no clubbing, no edema Neurological: normal sensation to touch, no focal deficits Psychiatric: normal affect, A&O x 3, oriented to person, oriented to place Hospitalist Results - Labs Result Diagrams: 05/24/20 11:33 05/24/20 11:33 Lab results: WBC 27.4 thou/uL (4.8-10.8) H 05/24/20 11:33 Hgb 13.2 g/dL (14.0-18.0) L 05/24/20 11:33 Hct 40.1 % (42.0-52.0) L 05/24/20 11:33 MCV 94.5 fL (78.0-98.0) 05/24/20 11:33 Plt Count 231 thou/uL (130-400) 05/24/20 11:33 Band Neuts % (Manual) 1 % (5-11) L 05/24/20 11:33 Sodium 139 mmol/L (136-145) 05/24/20 11:33 Potassium 3.9 mmol/L (3.5-5.1) 05/24/20 11:33 Chloride 104 mmol/L (98-107) 05/24/20 11:33 Carbon Dioxide 21 mmol/L (23-31) L 05/24/20 11:33 BUN 14 mg/dL (8.4-25.7) 05/24/20 11:33 Creatinine 0.87 mg/dL (0.7-1.3) 05/24/20 11:33 Glucose 99 mg/dL (83-110) 05/24/20 11:33 Lactic Acid 1.7 mmol/L (0.5-2.2) 05/24/20 14:30 Calcium 8.6 mg/dL (7.8-10.44) 05/24/20 11:33 Total Bilirubin 0.6 mg/dL (0.2-1.2) 05/24/20 11:33 AST 14 U/L (5-34) 05/24/20 11:33 ALT 9 U/L (8-55) 05/24/20 11:33 Alkaline Phosphatase 87 U/L (40-110) 05/24/20 11:33 Creatine Kinase 33 U/L (30-200) 05/24/20 11:33 Troponin I 0.011 ng/mL (< 0.028) 05/24/20 11:33 Serum Total Protein 5.2 g/dL (5.8-8.1) L 05/24/20 11:33 Albumin 3.4 g/dL (3.4-4.8) 05/24/20 11:33 Urine Ketones Negative mg/dL (Negative) 05/24/20 11:34 Urine Blood Negative (Negative) 05/24/20 11:34 Urine Nitrite Negative (Negative) 05/24/20 11:34 Ur Leukocyte Esterase 500 Brenna/uL (Negative) A 05/24/20 11:34 Urine RBC 4-6 HPF (0-3) A 05/24/20 11:34 Urine WBC Greater than 50 HPF (0-3) A 05/24/20 11:34 Ur Squamous Epith Cells 0-3 HPF (0-3) 05/24/20 11:34 Urine Bacteria None Seen HPF (None Seen) 05/24/20 11:34 Hospitalist H&P A/P - Problem (1) Metabolic encephalopathy Code(s): G93.41 - METABOLIC ENCEPHALOPATHY Status: Acute (2) UTI (urinary tract infection) Status: Acute Qualifiers: Urinary tract infection type: acute cystitis Hematuria presence: with hematuria Qualified Code(s): N30.01 - Acute cystitis with hematuria (3) Dementia Code(s): F03.90 - UNSPECIFIED DEMENTIA WITHOUT BEHAVIORAL DISTURBANCE Status: Chronic (4) Sepsis Code(s): A41.9 - SEPSIS, UNSPECIFIED ORGANISM Status: Acute Qualifiers: Sepsis type: sepsis due to unspecified organism Sepsis acute organ dysfunction status: without acute organ dysfunction Qualified Code(s): A41.9 - Sepsis, unspecified organism Assessment and Plan: Antibiotic treatment as above. - Plan Plan: #1. Acute metabolic encephalopathy. His CT of the head was normal. CT angio did not show any significant stenosis or occlusions. I suspect this is secondary to urinary tract infection. His urine analysis suggest a UTI. I agree with IV antibiotic pending culture availability. #2. Suspected aspiration pneumonia. Antibiotic as above. Will utilize Clindamycin or Zosyn if he can tolerate it. He is listed as being allergic to penicillin but he was given Rocephin earlier which he tolerated. 3. Urinary tract infection. Antibiotic as above and follow-up on urine cultures. #4. Sepsis. This was present on admission likely secondary to urinary tract infection. Follow-up on active cultures. Continue empiric antibiotics as above. #5. Likely dementia. Supportive care.
[2020-05-24] MEDS ORDERED: Acetaminophen 650 MG Suppository PR PRN (16:34)
[2020-05-24] MEDS ORDERED: Ondansetron PF 4 MG/2 ML Vial IVP PRN (16:34)
[2020-05-24] MEDS ORDERED: HYDROcodone/Acetaminophen 5/325 mg Tablet PO PRN (16:34)
[2020-05-24] MEDS ORDERED: Bisacodyl 5 MG TAB PO PRN (16:34)
[2020-05-24] MEDS ORDERED: hydrALAZINE 20 MG/ML VIAL SLOW IVP PRN (16:34)
[2020-05-24] MEDS ORDERED: Aspirin Chewable 81 MG TAB ONE (16:54)
[2020-05-24 18:53] VITALS: BMI 19.7
[2020-05-24] MEDS: Atorvastatin Calcium 40 MG TAB PO SCH (22:30)
[2020-05-24] MEDS: Famotidine 20 MG TAB PO SCH (22:30)
[2020-05-25 05:25] LABS: Anion Gap 16 mmol/L (10-20); BUN (Urea Nitrogen) 12 mg/dL (8.4-25.7); Calc. Creatinine Clearance 68 mL/min (70-130); Calcium 9.1 mg/dL (7.8-10.44); Carbon Dioxide 19 mmol/L (23-31); Cardiac Risk 3.7 (Less than 4.5); Chloride 103 mmol/L (98-107); Cholesterol 181 mg/dl (< 200 Desired); Estimated GFR-MDRD Greater than 90; Glucose 96 mg/dL (83-110); HDL Cholesterol 49 mg/dL (>60 Neg Risk); LDL Cholesterol, Calculated 118 mg/dL; Potassium 3.9 mmol/L (3.5-5.1); Sodium 134 mmol/L (136-145); Triglycerides 69 mg/dL (Less than 150)
[2020-05-25 05:41] LABS: Band 2 % (5-11); Eosinophils 2 % (0-10); Hemoglobin 13.9 g/dL (14.0-18.0); Lymphocytes 62 % (21-51); MDiff Complete? YES; Mean Corpuscular HGB CONC 32.7 g/dL (32.0-36.0); Mean Corpuscular Hemoglobin 30.7 pg (27.0-31.0); Mean Corpuscular Volume 93.8 fL (78.0-98.0); Mean Platelet Volume 6.9 fL (7.4-10.4); Monocytes 3 % (0-10); Neutrophil 31 % (42-75); Platelet Count 250 thou/uL (130-400); Platelet Morphology Comment Appears Adequate; RBC Distribution Width 15.4 % (11.5-14.5); RBC Morphology Normal; Red Blood Cell (RBC) Count 4.55 mill/uL (4.70-6.10); White Blood Cell (WBC) Count 31.3 thou/uL (4.8-10.8)
--- NOTE | 2020-05-25 09:58 | PDOC.HOSPP ---
- Subjective Encounter Date: 05/25/20 Encounter Time: 09:58 Subjective: Patient seen and evaluated this morning. This is an unfortunate 89-year-old [facility] resident who was admitted to the hospital after he suffered what appears to be syncopal episode. It appears that he may have aspirated at some point. There was some concerns for a stroke and he was promptly sent to the hospital for an evaluation. His CT of the head did not show any acute findings. CT angiogram of the head and neck also did not show any significant stenosis or occlusions. Neurology evaluation is ongoing. He has evidence of aspiration pneumonia on the CT and also urinary tract infection. He was started on IV antibiotic yesterday. Antibiotic changed to Zosyn today. 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 Will reattempt again today. - Objective Vital Signs & Weight: Vital Signs (12 hours) Temp Pulse Resp BP Pulse Ox 05/25/20 08:00 97.8 F 92 16 120/83 94 L 05/25/20 04:43 99.1 F 103 H 12 166/91 H 94 L 05/25/20 00:13 98.1 F 85 16 158/77 H 96 05/24/20 22:26 98.6 F 79 16 177/92 H 96 Weight Weight 153 lb 8 oz I&O: 05/24/20 05/25/20 05/26/20 06:59 06:59 06:59 Output Total 1000 Balance -1000 Result Diagrams: 05/25/20 04:32 05/25/20 04:32 Radiology Reviewed by me: Yes EKG Reviewed by me: Yes Hospitalist ROS - Review of Systems ROS unobtainable: due to mental status Constitutional: reports: chills, weakness Respiratory: reports: cough, shortness of breath, sputum Neurological: reports: weakness, incoordination, confusion - Medication Medications: Active Medications Generic Name Dose Route Start Last Admin Trade Name Freq PRN Reason Stop Dose Admin Atorvastatin Calcium 40 mg 05/24/20 21:00 05/24/20 22:30 Atorvastatin Calcium 40 Mg Tab PO Not Given HS MICHELLE Famotidine 20 mg 05/24/20 21:00 05/24/20 22:30 Famotidine 20 Mg Tab PO Not Given BID MICHELLE Sodium Chloride 10 ml 05/24/20 16:34 05/24/20 22:30 Flush - Normal Saline 10 Ml Syringe IVF 10 ml PRN PRN Administration Saline Flush - Exam General Appearance: ill appearing Eye: anicteric sclera ENT: normocephalic atraumatic, no oropharyngeal lesions, dry oral mucosa Neck: supple, symmetric, no JVD, no lymphadenopathy Heart: RRR Respiratory: normal chest expansion, no tachypnea, rhonchi, wheezes Gastrointestinal: soft, non-tender, non-distended, normal bowel sounds Extremities: no edema Neurological: cranial nerve grossly intact, normal sensation to touch, no focal deficits Musculoskeletal: generalized weakness, diffuse muscle atrophy Psychiatric: normal affect, oriented to person, oriented to place Hosp A/P (1) Metabolic encephalopathy Code(s): G93.41 - METABOLIC ENCEPHALOPATHY Status: Acute Plan: Patient seems to be back to his baseline. No focal neurologic findings at this time. Encephalopathy likely toxic from infectious process. Continue plan as below. (2) UTI (urinary tract infection) Status: Acute Qualifiers: Urinary tract infection type: acute cystitis Hematuria presence: with hematuria Qualified Code(s): N30.01 - Acute cystitis with hematuria Plan: He is on empiric IV antibiotics. (3) Dementia Code(s): F03.90 - UNSPECIFIED DEMENTIA WITHOUT BEHAVIORAL DISTURBANCE Status: Chronic Qualifiers: Dementia type: Alzheimer's disease Alzheimer's disease onset: unspecified onset Dementia behavioral disturbance: without behavioral disturbance Q ualified Code(s): G30.9 - Alzheimer's disease, unspecified; F02.80 - Dementia in other diseases classified elsewhere without behavioral disturbance (4) Sepsis Code(s): A41.9 - SEPSIS, UNSPECIFIED ORGANISM Status: Acute Qualifiers: Sepsis type: sepsis due to unspecified organism Sepsis acute organ dysfunction status: without acute organ dysfunction Qualified Code(s): A41.9 - Sepsis, unspecified organism - Plan #1. Metabolic encephalopathy. This seems to have resolved. Suspect encephalopathy related to infectious process. Cannot rule out neurologic findings as well. Stroke evaluation is ongoing. MRI testing is pending this morning. We appreciate neurologist ongoing evaluation. 2. Urinary tract infection. Urine culture is pending at this time. We will continue Zosyn. He tolerated Rocephin from the emergency room yesterday. 3. Suspected aspiration pneumonia. We will continue Zosyn as above. 4. Sepsis. This has resolved. Suspect secondary to #2 and #3 above. Continue antibiotics as above. 5. History of CLL. This will account for the elevated white count with lymphocytic predominance. 6. Suspect Alzheimer's dementia. Supportive care.
[2020-05-25] MEDS: Famotidine 20 MG TAB PO SCH ×3 (10:20→22:04)
[2020-05-25] MEDS: Aspirin 300 MG Suppository PR SCH (10:21)
[2020-05-25] MEDS: Enoxaparin Sodium 30 MG/0.3 ML SYRINGE SC SCH (10:21)
[2020-05-25] MEDS: Piperacillin/Tazobactam 3.375 GM in Sodium Chloride 0.9% 100 ML IVPB SCH ×3 (12:00→22:03)
[2020-05-25 12:01] LABS: SARS-CoV-2 MS2 Positive; SARS-CoV-2 N Gene Negative; SARS-CoV-2 S Gene Negative; SARS-CoV-2 by NAA Not Detected (NotDetected); SARS-CoV-2 orf1ab Negative
[2020-05-25] MEDS ORDERED: Piperacillin/Tazobactam 3.375 GM VIAL ONE (12:06)
--- NOTE | 2020-05-25 13:07 | CON ---
NEUROLOGY CONSULTATION DATE OF CONSULTATION: 05/25/2020 REASON FOR CONSULTATION: Episode of unresponsiveness, rule out seizures. HISTORY OF PRESENT ILLNESS: Mr. Santos is an 89-year-old senior living resident, who resides at [facility], was transferred from the senior living because of an episode of unresponsiveness. Per records, the patient earlier this morning when the patient was doing activity he suddenly slumped over the chair and has momentary loss of consciousness. EMS were called and he was brought to the emergency room for further evaluation. The patient is confused at that time. The patient is alert and awake, but is unable to provide any history. Head CT was done, which did not reveal any acute intracranial pathology. CT of the head and neck did not reveal hemodynamically significant stenosis. REVIEW OF SYSTEMS: Unobtainable due to the patient's mental status. PAST MEDICAL HISTORY: Dementia. PAST SURGICAL HISTORY: Not significant. FAMILY HISTORY: No significant family history. SOCIAL HISTORY: The patient is a former smoker. Drinks alcohol occasionally. [facility] resident. Uses cane and walker. ALLERGIES: PCN Vital Signs & Weight: Vital Signs (12 hours) Temp Pulse Resp BP Pulse Ox 05/25/20 08:00 97.8 F 92 16 120/83 94 L 05/25/20 04:43 99.1 F 103 H 12 166/91 H 94 L 05/25/20 00:13 98.1 F 85 16 158/77 H 96 05/24/20 22:26 98.6 F 79 16 177/92 H 96 Weight Weight 153 lb 8 oz I&O: 05/24/20 05/25/20 05/26/20 06:59 06:59 06:59 Output Total 1000 Balance -1000 Active Medications Generic Name Dose Route Start Last Admin Trade Name Freq PRN Reason Stop Dose Admin Atorvastatin Calcium 40 mg 05/24/20 21:00 05/24/20 22:30 Atorvastatin Calcium 40 Mg Tab PO Not Given HS MICHELLE Famotidine 20 mg 05/24/20 21:00 05/24/20 22:30 Famotidine 20 Mg Tab PO Not Given BID MICHELLE Sodium Chloride 10 ml 05/24/20 16:34 05/24/20 22:30 Flush - Normal Saline 10 Ml Syringe IVF 10 ml PRN PRN Administration Saline Flush PHYSICAL EXAMINATION: General Appearance: ill appearing Eye - other findings: he has matted and mucoid secretions ENT: normocephalic atraumatic, dry oral mucosa Neck: supple, symmetric, no JVD, no thyromegaly, no lymphadenopathy Heart: RRR, no murmur, no gallops, no rubs Respiratory: CTAB, no wheezes, no rales, no ronchi, normal chest expansion Gastrointestinal: soft, non-tender, non-distended, normal bowel sounds, no palpable masses, no hepatomegaly, no splenomegaly, no bruit Extremities: no cyanosis, no clubbing, no edema Neurological: normal sensation to touch, no focal deficits normal affect, A&O to person only. Lab results: WBC 27.4 thou/uL (4.8-10.8) H 05/24/20 11:33 Hgb 13.2 g/dL (14.0-18.0) L 05/24/20 11:33 Hct 40.1 % (42.0-52.0) L 05/24/20 11:33 MCV 94.5 fL (78.0-98.0) 05/24/20 11:33 Plt Count 231 thou/uL (130-400) 05/24/20 11:33 Band Neuts % (Manual) 1 % (5-11) L 05/24/20 11:33 Sodium 139 mmol/L (136-145) 05/24/20 11:33 Potassium 3.9 mmol/L (3.5-5.1) 05/24/20 11:33 Chloride 104 mmol/L (98-107) 05/24/20 11:33 Carbon Dioxide 21 mmol/L (23-31) L 05/24/20 11:33 BUN 14 mg/dL (8.4-25.7) 05/24/20 11:33 Creatinine 0.87 mg/dL (0.7-1.3) 05/24/20 11:33 Glucose 99 mg/dL (83-110) 05/24/20 11:33 Lactic Acid 1.7 mmol/L (0.5-2.2) 05/24/20 14:30 Calcium 8.6 mg/dL (7.8-10.44) 05/24/20 11:33 Total Bilirubin 0.6 mg/dL (0.2-1.2) 05/24/20 11:33 AST 14 U/L (5-34) 05/24/20 11:33 ALT 9 U/L (8-55) 05/24/20 11:33 Alkaline Phosphatase 87 U/L (40-110) 05/24/20 11:33 Creatine Kinase 33 U/L (30-200) 05/24/20 11:33 Troponin I 0.011 ng/mL (< 0.028) 05/24/20 11:33 Serum Total Protein 5.2 g/dL (5.8-8.1) L 05/24/20 11:33 Albumin 3.4 g/dL (3.4-4.8) 05/24/20 11:33 Urine Ketones Negative mg/dL (Negative) 05/24/20 11:34 Urine Blood Negative (Negative) 05/24/20 11:34 Urine Nitrite Negative (Negative) 05/24/20 11:34 Ur Leukocyte Esterase 500 Brenna/uL (Negative) A 05/24/20 11:34 Urine RBC 4-6 HPF (0-3) A 05/24/20 11:34 Urine WBC Greater than 50 HPF (0-3) A 05/24/20 11:34 Ur Squamous Epith Cells 0-3 HPF (0-3) 05/24/20 11:34 Urine Bacteria None Seen HPF (None Seen) 05/24/20 11:34 ASSESSMENT AND PLAN: (1) Metabolic encephalopathy Code(s): G93.41 - METABOLIC ENCEPHALOPATHY Status: Acute (2) UTI (urinary tract infection) Status: Acute Qualifiers: Urinary tract infection type: acute cystitis Hematuria presence: with hematuria Qualified Code(s): N30.01 - (3) Dementia Code(s): F03.90 - UNSPECIFIED DEMENTIA WITHOUT BEHAVIORAL DISTURBANCE Status: Chronic (4) Sepsis Code(s): A41.9 - SEPSIS, UNSPECIFIED ORGANISM Status: Acute Qualifiers: Sepsis type: sepsis due to unspecified organism Sepsis acute organ dysfunction status: without acute organ dysfunction Qualified Code(s): A41.9 - Sepsis, unspecified organism Altered mental status, seems to be multifactorial secondary to metabolic or infectious etiology. The patient does have evidence of UTI and also suspected aspiration pneumonia, which can contribute to the altered mental status. CT of the head reviewed, which was negative for acute intracranial pathology, There was a concern about seizure activity. Consider EEG to rule out underlying cortical irritability. Neuro checks every 4 hours. Observe seizure precautions. Continue n.p.o. until cleared by. Continue medical management per primary team. PT/OT/Speech. DVT prophylaxis. We will continue to follow. Thank you for the consult. Job ID: [id number]
--- NOTE | 2020-05-25 15:30 | CT ---
EXAM: CT ANGIOGRAM OF THE HEAD AND NECK INDICATION: Stroke. Last seen normal at 20 minutes ago. Altered mental status. Patient started drooli ng. COMPARISON: None TECHNIQUE: CT angiogram of the head and neck are performed in the axial plane. Three-dimensional refo rmatted images are submitted for interpretation. FINDINGS: CTA OF THE HEAD WITH AND WITHOUT CONTRAST: POSTCONTRAST CT OF BRAIN: Pathologic enhancement: No pathologic enhancement the brain. Postcontrast soft tissue neck CT: Aerodigestive tract:Aerodigestive tract is patent. No mucosal abnormality. Sinuses: Adequate aeration. Orbits: Bilateral ocular lens implants are appropriately located. Both globes are intact. Retrobulbar fat is preserved. Symmetric attenuation the optic nerves and ocular rectus muscles. Salivary glands:Symmetric attenuation Thyroid gland: Grossly unremarkable. Lymph nodes: No evidence of lymphadenopathy by size criteria. Paraspinal muscles: Symmetric attenuation of the sternocleidomastoid muscles. Appropriate attenuation of the paraspinal muscles. Cervical spine:Diffuse bone demineralization. Extensive fusion of the posterior elements from C3 thro ugh C6. Mild loss of vertebral body height at T2, T3. Moderate loss of vertebral height at T5 and T7. Findings are presumed to be chronic. Upper mediastinum and lung apices: There is fluid in the visualized thoracic esophagus. There is debr is in the distal trachea. Incompletely evaluated opacity peripheral enhancement in the superior segment of the left lower lobe. CTA OF THE NECK WITH CONTRAST: Aorta: Atherosclerosis. No aneurysm or dissection. Right carotid artery: Appropriate enhancement and luminal diameter of the origin of the right carotid artery, innominate artery, common carotid artery. There is calcified plaque in the proximal right internal carotid artery. There is mild stenosis, based upon NASCET criteria. The mid to distal policy intern al carotid artery has appropriate enhancement and luminal diameter. Left carotid: Appropriate enhancement and luminal diameter of the origin left carotid artery, common carotid artery. There is calcified plaque in the distal common carotid artery and carotid bifurcation without significant stenosis, based upon NASCET criteria. There is appropriate enhancemen t and luminal diameter of the proximal mid and internal carotid artery. Subclavian arteries:Symmetric and patent Vertebral arteries:Patent throughout their course in the neck. Dominant right vertebral artery. CTA OF THE BRAIN: Intracranial internal carotid arteries:Atherosclerosis involving bilateral paraclinoid segments. Anterior circulation: Appropriate enhancement and luminal diameter of the A1 segments, proximal A2 se gments, M1 segments and proximal MCA branches. Intracranial vertebral arteries: Patent. Bilateral PICA artery origins have appropriate enhancement a nd luminal diameter. Posterior circulation: Both vertebral arteries supply normal caliber basilar artery. Symmetric enhanc ement and luminal diameter of the P1 segments. IMPRESSION: 1. No hemodynamically significant stenosis, occlusion or aneurysmal formation. 2. Incompletely evaluated peripherally enhancing focus in the posterior left pleural margin. Consider chest CT. Results study conveyed to Cydney Fregoso 05/24/2020 at 11:49 AM Code CR Transcribed Date/Time: 05/25/2020 3:30 PM
--- NOTE | 2020-05-25 16:04 | PDOC.EEG ---
Neurology EEG Report - Report Report: This EEG was performed using 24 channel [employer] video digital EEG machine with 24 disc electrodes. This was an extended 2 hours 4 minutes of EEG recording. Digital analysis of the EEG was done for Cezar and seizure detection which revealed no abnormalities. Background: The posterior background rhythm is 7-8 Hz. Minimal reactivity seen with eye opening and closure. Photic stimulation: No response seen with photic stimulation. Hyperventilation: Not performed. Sleep: Drowsiness and sleep are observed. EEG diagnosis: Occasional irregular theta activity seen throughout the recording. Nonsustained slow posterior background rhythm. Clinical interpretation: This EEG is consistent with mild generalized nonspecific cerebral dysfunction.
[2020-05-25] MEDS: Lorazepam 2 MG/ML VIAL SLOW IVP PRN (16:22)
--- NOTE | 2020-05-25 16:26 | PQF ---
Please forward this query to Dr. Xiong. Hw saw the patient today. Thanks. CLINICAL DOCUMENTATION CLARIFICATION FORM: Dear Dr.D. Benites Date: 05/25/20 [id number] Please exercise your independent, professional judgment in responding to the clarification form. Clinical indicators are provided on the bottom of this form for your review. Please check appropriate box(es): [ ] UTI Due to : [ ] Suprapubic catheter [ ] Unable to determine etiology [ ] UTI - Not due to : [ ] Suprapubic catheter UTI Site: [ ] Kidney [ ] Ureter [ ] Bladder [ ] Urethra [ ] Unable to determine Specify Organism (if known): [ ] Unknown organism [ ] Contaminated urine specimen without UTI [ ] Other diagnosis [ ] Unable to determine In addition, please specify: Present on Admission (POA): [ ] Yes [ ] No [ ] Unable to determine For continuity of documentation, please document condition throughout progress notes and discharge summary. Thank You. To be completed by CDI/Coding staff for physician review: CLINICAL INDICATORS - SIGNS / SYMPTOMS / LABS / RESULTS AND LOCATION IN MR Pt had suprapubic catheter in place upon arrival, urine collected from catheter, yellow in color, clear and sediment noted (ED Report) 05/24 05/24 WBC 27.4 05/25 WBC 31.3 Sepsis present on admission likely secondary to urinary tract infection ( H&P/ Inga) 05/24 Sepsis that has resolved. Suspect secondary to Urinary tract infection and suspected aspiration pneumonia (PN/Inga) 05/25 RISK FACTORS / RESULTS AND LOCATION IN MR Advanced age (89), senior living resident, Sepsis, UTI , SUPRAPUBIC CATHETER PRESENT ON ARRIVAL TO ED ( H&P/ Inga) 05/24 TREATMENT / RESULTS AND LOCATION IN MR Zosyn IV (05/25 present) Ceftriaxone injection ( ED) Vancomycin IV (ED) Thank you! CDS Signature: Kenia Serrano RN Phone #: [phone] Date:05/25/2020 This is a permanent part of the Medical Record [facility]
[2020-05-25] MEDS ORDERED: FLU VACC QS2020-21(65YR UP)/PF 240 MCG/0.7 ML SYRINGE IM ONE (21:00)
[2020-05-25] MEDS: Atorvastatin Calcium 40 MG TAB PO SCH (22:04)
[2020-05-26] MEDS: Piperacillin/Tazobactam 3.375 GM in Sodium Chloride 0.9% 100 ML IVPB SCH ×4 (04:36→21:54)
[2020-05-26] MEDS: Enoxaparin Sodium 30 MG/0.3 ML SYRINGE SC SCH (09:06)
[2020-05-26] MEDS: Aspirin 300 MG Suppository PR SCH (09:06)
[2020-05-26] MEDS: Famotidine 20 MG TAB PO SCH ×2 (09:07→21:54)
[2020-05-26] MEDS ORDERED: Dextrose 50% Abboject 50 ML SYRINGE ONE (09:29)
--- NOTE | 2020-05-26 10:46 | CT ---
CT BRAIN: 05/26/20 PROVIDED CLINICAL HISTORY: Altered mental status. COMPARISON: 05/24/2020 FINDINGS: The ventricular system is unchanged in size and morphology, prominent on the basis of central atrophy . Chronic microvascular ischemic changes are seen involving the periventricular white matter. There i s no evidence for intracranial hemorrhage or mass effect. The extracranial soft tissues and osseous s tructures demonstrate no acute findings. IMPRESSION: No evidence for intracranial hemorrhage or mass effect. POS: HAL
--- NOTE | 2020-05-26 11:50 | PDOC.HOSPP ---
- Subjective Encounter Date: 05/26/20 Encounter Time: 11:48 Subjective: Patient seen and evaluated this morning. He remains clinically about the same. This is an unfortunate 89-year-old admitted to the hospital with encephalopathy secondary to infectious process. He does have UTI and aspiration pneumonia. He remains for the most part somnolent and difficult to arouse. This point when I came in he was pretty slow to arouse. His Accu-Chek showed a blood sugar of 50. He was promptly given an amp of D50 with prompt improvement. I had a chance to talk to the patient's stepdaughter about goals of care and also initiating total parenteral nutrition which she consented to. At this time patient will remain DO NOT RESUSCITATE. His prognosis is guarded at best and grim at worst. He will continue Zosyn for his aspiration pneumonia and a UTI. We will arrange for TPN after PICC line is placed today. - Objective Vital Signs & Weight: Vital Signs (12 hours) Temp Pulse Resp BP Pulse Ox 05/26/20 11:20 96.8 F L 83 16 139/90 98 05/26/20 08:06 97.7 F 88 18 144/93 H 96 05/26/20 05:00 97.8 F 91 16 117/77 94 L Weight Admit Weight 153 lb 8 oz Weight 153 lb 8 oz I&O: 05/25/20 05/26/20 05/27/20 06:59 06:59 05:59 Intake Total 200 Output Total 1000 275 Balance -1000 -75 Result Diagrams: 05/25/20 04:32 05/25/20 04:32 Additional Labs: Accuchecks 05/26/20 09:50 POC Glucose 198 H Radiology Reviewed by me: Yes EKG Reviewed by me: Yes Hospitalist ROS - Review of Systems ROS unobtainable: due to mental status Respiratory: reports: cough Gastrointestinal: reports: nausea Neurological: reports: weakness, incoordination, change in speech, confusion - Medication Medications: Active Medications Generic Name Dose Route Start Last Admin Trade Name Freq PRN Reason Stop Dose Admin Aspirin 300 mg 05/25/20 09:00 05/26/20 09:06 Aspirin 300 Mg Suppository ID 300 mg DAILY MICHELLE Administration Atorvastatin Calcium 40 mg 05/24/20 21:00 05/25/20 22:04 Atorvastatin Calcium 40 Mg Tab PO Not Given HS MICHELLE Enoxaparin Sodium 30 mg 05/25/20 09:00 05/26/20 09:06 Enoxaparin Sodium 30 Mg/0.3 Ml Syringe SC 30 mg 0900 MICHELLE Administration Famotidine 20 mg 05/24/20 21:00 05/26/20 09:07 Famotidine 20 Mg Tab PO Not Given BID MICHELLE Piperacillin Sod/Tazobactam 100 mls @ 200 mls/hr 05/25/20 21:00 05/26/20 0 9:06 Sod 3.375 gm/ Sodium Chloride IVPB 100 mls 0300,0900,1500,2100 MICHELLE Administration Lorazepam 0.5 mg 05/25/20 16:05 05/25/20 16:22 Lorazepam 2 Mg/Ml Vial SLOW IVP 0.5 mg Q6H PRN Administration Anxiety/Agitation Sodium Chloride 10 ml 05/24/20 16:34 05/24/20 22:30 Flush - Normal Saline 10 Ml Syringe IVF 10 ml PRN PRN Administration Saline Flush - Exam General Appearance: ill appearing ENT: moist mucosa Neck: supple, symmetric, no JVD, no lymphadenopathy Heart: RRR Respiratory: CTAB, no wheezes, no rales, no ronchi, normal chest expansion Gastrointestinal: soft, non-tender, non-distended, normal bowel sounds, no palpable masses Neurological: no new deficit Musculoskeletal: normal tone, normal strength, generalized weakness, diffuse muscle atrophy Psychiatric: somnolent, lethargic Hosp A/P (1) Metabolic encephalopathy Code(s): G93.41 - METABOLIC ENCEPHALOPATHY Status: Acute (2) UTI (urinary tract infection) Status: Acute Qualifiers: Urinary tract infection type: acute cystitis Hematuria presence: with hematuria Qualified Code(s): N30.01 - Acute cystitis with hematuria (3) Dementia Code(s): F03.90 - UNSPECIFIED DEMENTIA WITHOUT BEHAVIORAL DISTURBANCE Status: Chronic Qualifiers: Dementia type: Alzheimer's disease Alzheimer's disease onset: unspecified onset Dementia behavioral disturbance: without behavioral disturbance Qualified Code(s): G30.9 - Alzheimer's disease, unspecified; F02.80 - Dementia in other diseases classified elsewhere without behavioral disturbance (4) Sepsis Code(s): A41.9 - SEPSIS, UNSPECIFIED ORGANISM Status: Acute Qualifiers: Sepsis type: sepsis due to unspecified organism Sepsis acute organ dysfunction status: without acute organ dysfunction Qualified Code(s): A41.9 - Sepsis, unspecified organism - Plan #1. Metabolic encephalopathy. This seems to have resolved. Suspect encephalopathy related to infectious process. Cannot rule out neurologic findings as well. Stroke evaluation is ongoing. MRI testing is pending this morning. We appreciate neurologist ongoing evaluation. 05/26/2020. He remains encephalopathic for the most part. He was agitated previously and received the Ativan and has been sleeping throughout. I had a chance to discuss with his family and he wants us to continue management as we are doing. 2. Urinary tract infection. Urine culture is pending at this time. We will continue Zosyn. He tolerated Rocephin from the emergency room yesterday. 05/26/2020. Urine culture did not show any growth. 3. Suspected aspiration pneumonia. We will continue Zosyn as above. 05/26/2020. I am going to continue Zosyn. 4. Sepsis. This has resolved. Suspect secondary to #2 and #3 above. Continue antibiotics as above. 5. History of CLL. This will account for the elevated white count with lymphocytic predominance. 6. Suspect Alzheimer's dementia. Supportive care. #7. Dysphagia. We are going to initiate TPN today.
--- NOTE | 2020-05-26 14:01 | PDOC.NEUPN ---
- Subjective Encounter Date: 05/26/20 Subjective: Continues to remain confused and unable to follow commands. EEG negative for seizure activity. - Objective Vital Signs & Weight: Vital Signs (12 hours) Temp Pulse Resp BP Pulse Ox 05/26/20 11:20 96.8 F L 83 16 139/90 98 05/26/20 08:06 97.7 F 88 18 144/93 H 96 05/26/20 05:00 97.8 F 91 16 117/77 94 L Weight Admit Weight 153 lb 8 oz Weight 153 lb 8 oz I&O: 05/25/20 05/26/20 05/27/20 06:59 06:59 05:59 Intake Total 200 Output Total 1000 275 Balance -1000 Result Diagrams: 05/25/20 04:32 05/25/20 04:32 Additional Labs: Accuchecks 05/26/20 05/26/20 12:53 09:50 POC Glucose 77 198 H Radiology Reviewed by me: Yes EKG Reviewed by me: Yes ROS - Review of Systems ROS unobtainable: due to mental status - Medication Medications: Active Medications Generic Name Dose Route Start Last Admin Trade Name Freq PRN Reason Stop Dose Admin Aspirin 300 mg 05/25/20 09:00 05/26/20 09:06 Aspirin 300 Mg Suppository CO 300 mg DAILY MICHELLE Administration Atorvastatin Calcium 40 mg 05/24/20 21:00 05/25/20 22:04 Atorvastatin Calcium 40 Mg Tab PO Not Given HS MICHELLE Enoxaparin Sodium 30 mg 05/25/20 09:00 05/26/20 09:06 Enoxaparin Sodium 30 Mg/0.3 Ml Syringe SC 30 mg 0900 MICHELLE Administration Famotidine 20 mg 05/24/20 21:00 05/26/20 09:07 Famotidine 20 Mg Tab PO Not Given BID MICHELLE Piperacillin Sod/Tazobactam 100 mls @ 200 mls/hr 05/25/20 21:00 05/26/20 09:06 Sod 3.375 gm/ Sodium Chloride IVPB 100 mls 0300,0900,1500,2100 MICHELLE Administration Lorazepam 0.5 mg 05/25/20 16:05 05/25/20 16:22 Lorazepam 2 Mg/Ml Vial SLOW IVP 0.5 mg Q6H PRN Administration Anxiety/Agitation Sodium Chloride 10 ml 05/24/20 16:34 05/24/20 22:30 Flush - Normal Saline 10 Ml Syringe IVF 10 ml PRN PRN Administration Saline Flush - Exam General Appearance: ill appearing Eye: PERRL ENT: normocephalic atraumatic Neck: supple Cardiovascular: RRR Gastrointestinal: soft Extremities: no cyanosis Skin: normal turgor Musculoskeletal: generalized weakness PSYCH: not oriented Results - Labs Result Diagrams: 05/25/20 04:32 05/25/20 04:32 Lab results: WBC 31.3 thou/uL (4.8-10.8) H 05/25/20 04:32 Hgb 13.9 g/dL (14.0-18.0) L 05/25/20 04:32 Hct 42.6 % (42.0-52.0) 05/25/20 04:32 MCV 93.8 fL (78.0-98.0) 05/25/20 04:32 Plt Count 250 thou/uL (130-400) 05/25/20 04:32 Band Neuts % (Manual) 2 % (5-11) L 05/25/20 04:32 Sodium 134 mmol/L (136-145) L 05/25/20 04:32 Potassium 3.9 mmol/L (3.5-5.1) 05/25/20 04:32 Chloride 103 mmol/L (98-107) 05/25/20 04:32 Carbon Dioxide 19 mmol/L (23-31) L 05/25/20 04:32 BUN 12 mg/dL (8.4-25.7) 05/25/20 04:32 Creatinine 0.74 mg/dL (0.7-1.3) 05/25/20 04:32 Glucose 96 mg/dL (83-110) 05/25/20 04:32 Lactic Acid 1.7 mmol/L (0.5-2.2) 05/24/20 14:30 Calcium 9.1 mg/dL (7.8-10.44) 05/25/20 04:32 Total Bilirubin 0.6 mg/dL (0.2-1.2) 05/24/20 11:33 AST 14 U/L (5-34) 05/24/20 11:33 ALT 9 U/L (8-55) 05/24/20 11:33 Alkaline Phosphatase 87 U/L (40-110) 05/24/20 11:33 Creatine Kinase 33 U/L (30-200) 05/24/20 11:33 Troponin I 0.011 ng/mL (< 0.028) 05/24/20 11:33 Serum Total Protein 5.2 g/dL (5.8-8.1) L 05/24/20 11:33 Albumin 3.4 g/dL (3.4-4.8) 05/24/20 11:33 Urine Ketones Negative mg/dL (Negative) 05/24/20 11:34 Urine Blood Negative (Negative) 05/24/20 11:34 Urine Nitrite Negative (Negative) 05/24/20 11:34 Ur Leukocyte Esterase 500 Brenna/uL (Negative) A 05/24/20 11:34 Urine RBC 4-6 HPF (0-3) A 05/24/20 11:34 Urine WBC Greater than 50 HPF (0-3) A 05/24/20 11:34 Ur Squamous Epith Cells 0-3 HPF (0-3) 05/24/20 11:34 Urine Bacteria None Seen HPF (None Seen) 05/24/20 11:34 - Radiology Interpretation CT scan - head Status: image reviewed by me, report reviewed by me Additional Comment: No acute intracranial pathology PN A/P (1) AMS (altered mental status) Code(s): R41.82 - ALTERED MENTAL STATUS, UNSPECIFIED Status: Acute (2) Sepsis Code(s): A41.9 - SEPSIS, UNSPECIFIED ORGANISM Status: Acute Qualifiers: Sepsis type: sepsis due to unspecified organism Sepsis acute organ dysfunction status: without acute organ dysfunction Qualified Code(s): A41.9 - Sepsis, unspecified organism (3) Atrial fibrillation Code(s): I48.91 - UNSPECIFIED ATRIAL FIBRILLATION Status: Acute (4) Metabolic encephalopathy Code(s): G93.41 - METABOLIC ENCEPHALOPATHY Status: Acute (5) BPH (benign prostatic hyperplasia) Code(s): N40.0 - BENIGN PROSTATIC HYPERPLASIA WITHOUT LOWER URINRY TRACT SYMP Status: Chronic (6) CLL (chronic lymphocytic leukemia) Code(s): C91.10 - CHRONIC LYMPHOCYTIC LEUK OF B-CELL TYPE NOT ACHIEVE REMIS Status: Chronic (7) Chronic anticoagulation Code(s): Z79.01 - MCC (CURRENT) USE OF ANTICOAGULANTS Status: Chronic (8) Dementia Code(s): F03.90 - UNSPECIFIED DEMENTIA WITHOUT BEHAVIORAL DISTURBANCE Status: Chronic Qualifiers: Dementia type: Alzheimer's disease Alzheimer's disease onset: unspecified onset Dementia behavioral disturbance: without behavioral disturbance Qualified Code(s): G30.9 - Alzheimer's disease, unspecified; F02.80 - Dementia in other diseases classified elsewhere without behavioral disturbance (9) Acute renal failure Status: Resolved Qualifiers: Acute renal failure type: unspecified Qualified Code(s): N17.9 - Acute kidney failure, unspecified - Plan Daily Plan: PT/OT, speech therapy, DVT proph w/SCDs 89-year-old male presented with altered mental status. Altered mental status seems to be multifactorial secondary to infectious and abnormalities and infectious etiology abnormalities. Possible UTI and aspiration pneumonia. Neurology consulted to rule out intracranial process. Repeat Head CT reviewed which was negative for acute intracranial pathology. EEG reviewed which was negative for seizure activity. Neurochecks every 4 hours. Telemetry Continue home medications. PT/OT/speech. N.p.o. till cleared by speech. Strict control of blood pressure and blood glucose. Continue medical management per primary team. Plan discussed with the nursing staff
--- NOTE | 2020-05-26 15:27 | CON ---
DATE OF CONSULTATION: HISTORY OF PRESENT ILLNESS: The patient is an 89-year-old gentle with history of atrial arrhythmias. He was admitted for altered mental status and was noted to have an irregular heart rhythm. The patient has a history of atrial arrhythmias. He has previously been on anticoagulation therapy. This was apparently discontinued most likely due to fall risk. The patient has a history of apparent dementia and was admitted for further evaluation. The patient has previously undergone radiofrequency ablation for atrial fibrillation. PAST MEDICAL HISTORY: 1. CLL. 2. Hypertension. 3. Mitral regurgitation. PAST SURGICAL HISTORY: Tonsillectomy, a cervical fusion surgery. ALLERGIES: PENICILLIN. MEDICATIONS: See nursing list. REVIEW OF SYSTEMS: Not obtainable. PHYSICAL EXAMINATION: GENERAL: Disoriented gentleman, who is arousable. VITAL SIGNS: Blood pressure 139/90. NECK: No jugular venous distention. LUNGS: Clear to auscultation. HEART: Regular rate and rhythm. Normal S1 and S2, with no murmurs. ABDOMEN: Nondistended. EXTREMITIES: Showed trace edema. LABORATORY RESULTS: White blood cell count 31.3, hemoglobin 13.9, hematocrit 42.6, and platelets are 250. Sodium was 134, potassium 3.9, chloride 103, bicarbonate 19, BUN 12, and creatinine 0.74. Troponin was 0.11. EKG atrial tachycardia with controlled ventricular response, nonspecific T-wave abnormality. IMPRESSION: 1. Atrial tachycardia. 2. History of atrial arrhythmia. 3. Altered mental status. 4. Possible aspiration pneumonia. PLAN: This gentleman is completely disoriented. He has previously been on Xarelto. From a cardiac standpoint, we would continue to observe the patient for further recommendations. We will follow this patient with you through his hospitalization. Job ID: [id number] [facility]
[2020-05-26] MEDS: Dextrose 5% in Water 1,000 ML IV SCH (16:39)
--- NOTE | 2020-05-26 17:01 | RAD ---
KUB: 05/26/20 PROVIDED CLINICAL HISTORY: Enteric catheter placement. FINDINGS: Dobhoff tube tip overlies the right lateral chest, compatible with placement within the airway. Clini cians caring for the patient are aware of this finding at time of dictation. IMPRESSION: As above. POS: HAL
--- NOTE | 2020-05-26 17:18 | RAD ---
KUB: 05/26/20 PROVIDED CLINICAL HISTORY: NG tube placement. FINDINGS: Dobhoff catheter overlies the left hemithorax compatible with placement within the airway. Clinician' s caring for the patient aware of the finding at the time of dictation. IMPRESSION: As above. POS: HAL
--- NOTE | 2020-05-26 18:50 | SPC ---
LEFT UPPER EXTREMITY PICC PLACEMENT: 05/26/20 HISTORY: 89-year-old male in need of vascular access for TPN. FINDINGS: Informed consent obtained from the patient's family prior to the procedure. Left antecubital fossa pr epped and draped in the normal sterile fashion. Skin overlying the left basilic vein anesthetized wit h 1% buffered lidocaine. With direct sonographic guidance, vascular access is obtained via the left basilic vein and an 0.018 wire is advanced into the IVC, subsequently retracted to the cavoatrial junction. Intravascular lengt h is calculated at 43 cm and the PICC is cut accordingly. Needle is removed and replaced with a peel away sheath. PICC is advanced over the wire. Wire and peel away sheath were removed. Tip of the sherin ter overlies the cavoatrial junction. Both ports flush well and the catheter is ready for use. EXPOSURE DATA: 0.4 minutes of fluoroscopic time, 1945 mGy^cm2. IMPRESSION: Successful placement of left upper extremity dual lumen PICC with sonographic and fluoroscopic rayne gilliland. POS: KYAW
[2020-05-26] MEDS: Atorvastatin Calcium 40 MG TAB PO SCH (21:54)
[2020-05-26] MEDS ORDERED: Multivitamins, Adult 10 ML, TRACE ELEMENT CONCENTRATE 1 ML in D15W-AA 5% with Lytes 2,0... IV SCH (22:00)
[2020-05-27] MEDS: Piperacillin/Tazobactam 3.375 GM in Sodium Chloride 0.9% 100 ML IVPB SCH ×4 (02:42→21:40)
[2020-05-27 03:29] LABS: Prothrombin Time 13.2 sec (12.0-14.7)
[2020-05-27 03:30] LABS: PTT 37.3 sec (22.9-36.1)
[2020-05-27 03:44] LABS: Anion Gap 15 mmol/L (10-20); BUN (Urea Nitrogen) 15 mg/dL (8.4-25.7); Calc. Creatinine Clearance 74 mL/min (70-130); Calcium 8.3 mg/dL (7.8-10.44); Carbon Dioxide 22 mmol/L (23-31); Chloride 103 mmol/L (98-107); Estimated GFR-MDRD Greater than 90; Glucose 86 mg/dL (83-110); Magnesium 1.9 mg/dL (1.6-2.6); Potassium 3.1 mmol/L (3.5-5.1); Sodium 137 mmol/L (136-145)
[2020-05-27 03:48] LABS: Eosinophils 1 % (0-10); Hemoglobin 14.1 g/dL (14.0-18.0); Hypochromia SLIGHT = 6-15 cells (100X) (0-5/hpf); Lymphocytes 70 % (21-51); MDiff Complete? YES; Mean Corpuscular HGB CONC 34.2 g/dL (32.0-36.0); Mean Corpuscular Hemoglobin 32.1 pg (27.0-31.0); Mean Corpuscular Volume 94.1 fL (78.0-98.0); Mean Platelet Volume 6.6 fL (7.4-10.4); Monocytes 5 % (0-10); Neutrophil 23 % (42-75); Platelet Count 230 thou/uL (130-400); Platelet Morphology Comment Appears Adequate; White Blood Cell (WBC) Count 23.5 thou/uL (4.8-10.8)
[2020-05-27] MEDS: Dextrose 5% in Water 1,000 ML IV SCH (05:16)
--- NOTE | 2020-05-27 09:10 | PDOC.HOSPP ---
- Subjective Encounter Date: 05/27/20 Encounter Time: 09:09 Subjective: Events from last night are reviewed. He pulled out the PICC line placed. This resulted in excessive bleeding but his hemoglobin remained stable. He seems to be more awake and alert today when I visited him. He even was more coherent. He was reevaluated by speech therapy who is now recommending some diet which will be started here shortly. We will continue antibiotic for his aspiration pneumonia and a UTI. We will begin the process of mobilizing out of bed. We will get PT, OT to help work with him. - Objective Vital Signs & Weight: Vital Signs (12 hours) Temp Pulse Resp BP Pulse Ox 05/27/20 07:14 96.9 F L 76 14 137/78 97 05/27/20 04:01 97.6 F 76 16 166/99 H 97 05/27/20 00:30 85 24 H 148/94 H 97 Weight Admit Weight 153 lb 8 oz Weight 153 lb 8 oz I&O: 05/26/20 05/27/20 05/28/20 07:59 06:59 06:59 Intake Total Output Total Balance Result Diagrams: 05/27/20 03:07 05/27/20 03:07 Additional Labs: Accuchecks 05/27/20 05/27/20 05/26/20 06:20 00:11 18:10 POC Glucose 89 82 76 05/26/20 12:53 POC Glucose 77 Radiology Reviewed by me: Yes EKG Reviewed by me: Yes Hospitalist ROS - Review of Systems ROS unobtainable: due to mental status Respiratory: reports: cough, dry - Medication Medications: Active Medications Generic Name Dose Route Start Last Admin Trade Name Rashaad PRN Reason Stop Dose Admin Aspirin 300 mg 05/25/20 09:00 05/26/20 09:06 Aspirin 300 Mg Suppository DE 300 mg DAILY MICHELLE Administration Atorvastatin Calcium 40 mg 05/24/20 21:00 05/26/20 21:54 Atorvastatin Calcium 40 Mg Tab PO Not Given HS MICHELLE Enoxaparin Sodium 30 mg 05/25/20 09:00 05/26/20 09:06 Enoxaparin Sodium 30 Mg/0.3 Ml Syringe SC 30 mg 0900 MICHELLE Administration Famotidine 20 mg 05/24/20 21:00 05/26/20 21:54 Famotidine 20 Mg Tab PO Not Given BID MICHELLE Piperacillin Sod/Tazobactam 100 mls @ 200 mls/hr 05/25/20 21:00 05/27/20 02:42 Sod 3.375 gm/ Sodium Chloride IVPB 100 mls 0300,0900,1500,2100 MICHELLE Administration Multivitamins 10 ml/ Chromium/ 2,261 mls @ 94.208 mls/hr 05/26/20 22:00 05/27/20 00:01 Copper/Manganese/Seleni/Zn 1 IV Not Given ml/ Amino Acids/Electrolytes/ 2200 MICHELLE Fat Emulsion Intravenous Lorazepam 0.5 mg 05/25/20 16:05 05/25/20 16:22 Lorazepam 2 Mg/Ml Vial SLOW IVP 0.5 mg Q6H PRN Administration Anxiety/Agitation Sodium Chloride 10 ml 05/24/20 16:34 05/24/20 22:30 Flush - Normal Saline 10 Ml Syringe IVF 10 ml PRN PRN Administration Saline Flush - Exam General Appearance: awake alert, ill appearing Eye: PERRL ENT: normocephalic atraumatic, dry oral mucosa Neck: supple, symmetric Heart: RRR, no murmur, normal peripheral pulses Respiratory: CTAB, no wheezes, no rales, no tachypnea Gastrointestinal: soft, non-tender, non-distended, normal bowel sounds Extremities: no cyanosis, no clubbing, no edema Skin: normal turgor Musculoskeletal: generalized weakness Psychiatric: normal affect, normal behavior, oriented to person, oriented to place Hosp A/P (1) Metabolic encephalopathy Code(s): G93.41 - METABOLIC ENCEPHALOPATHY Status: Acute Plan: 05/27/2020. Suspect secondary to infectious process including aspiration pneumonia and UTI. He seems to be more awake and alert today. We will continue Zosyn for now. (2) UTI (urinary tract infection) Status: Acute Qualifiers: Urinary tract infection type: acute cystitis Hematuria presence: with hematuria Qualified Code(s): N30.01 - Acute cystitis with hematuria Plan: 05/27/2020. He is tolerating his antibiotics well. (3) Dementia Code(s): F03.90 - UNSPECIFIED DEMENTIA WITHOUT BEHAVIORAL DISTURBANCE Status: Chronic Qualifiers: Dementia type: Alzheimer's disease Alzheimer's disease onset: unspecified onset Dementia behavioral disturbance: without behavioral disturbance Qualified Code(s): G30.9 - Alzheimer's disease, unspecified; F02.80 - Dementia in other diseases classified elsewhere without behavioral disturbance Plan: Supportive care as above. (4) Sepsis Code(s): A41.9 - SEPSIS, UNSPECIFIED ORGANISM Status: Acute Qualifiers: Sepsis type: sepsis due to unspecified organism Sepsis acute organ dysfunction status: without acute organ dysfunction Qualified Code(s): A41.9 - Sepsis, unspecified organism - Plan #1. Metabolic encephalopathy. This seems to have resolved. Suspect encephalopathy related to infectious process. Cannot rule out neurologic findings as well. Stroke evaluation is ongoing. MRI testing is pending this morning. We appreciate neurologist ongoing evaluation. 05/26/2020. He remains encephalopathic for the most part. He was agitated previously and received the Ativan and has been sleeping throughout. I had a chance to discuss with his family and he wants us to continue management as we are doing. 05/27/2020. He seems to be doing much better today. He is more oriented and more alert. We will continue antibiotic 2. Urinary tract infection. Urine culture is pending at this time. We will continue Zosyn. He tolerated Rocephin from the emergency room yesterday. 05/26/2020. Urine culture did not show any growth. 3. Suspected aspiration pneumonia. We will continue Zosyn as above. 05/26/2020. I am going to continue Zosyn. 4. Sepsis. This has resolved. Suspect secondary to #2 and #3 above. Continue antibiotics as above. 5. History of CLL. This will account for the elevated white count with lymphocytic predominance. 6. Suspect Alzheimer's dementia. Supportive care. #7. Dysphagia. We are going to initiate TPN today. 05/27/2020. He unfortunately pulled out his PICC line overnight. He is more awake and alert today and I have requested speech therapy to reevaluate him and make further recommendations.
[2020-05-27] MEDS: Enoxaparin Sodium 30 MG/0.3 ML SYRINGE SC SCH (09:14)
[2020-05-27] MEDS: Famotidine 20 MG TAB PO SCH ×2 (09:17→21:40)
[2020-05-27] MEDS: Aspirin 300 MG Suppository PR SCH (09:21)
--- NOTE | 2020-05-27 12:07 | PDOC.NEUPN ---
- Subjective Encounter Date: 05/27/20 Subjective: Confused at bedtime but still oriented to his name today. - Objective Vital Signs & Weight: Vital Signs (12 hours) Temp Pulse Resp BP Pulse Ox 05/27/20 11:10 97.5 F L 84 16 112/62 96 05/27/20 07:14 96.9 F L 76 14 137/78 97 05/27/20 04:01 97.6 F 76 16 166/99 H 97 Weight Admit Weight 153 lb 8 oz Weight 153 lb 8 oz I&O: 05/26/20 05/27/20 05/28/20 07:59 06:59 06:59 Intake Total Output Total Balance Result Diagrams: 05/27/20 03:07 05/27/20 03:07 Additional Labs: Accuchecks 05/27/20 05/27/20 05/26/20 06:20 00:11 18:10 POC Glucose 89 82 76 Radiology Reviewed by me: Yes EKG Reviewed by me: Yes ROS - Review of Systems ROS unobtainable: due to mental status - Medication Medications: Active Medications Generic Name Dose Route Start Last Admin Trade Name Rashaad PRN Reason Stop Dose Admin Aspirin 300 mg 05/25/20 09:00 05/27/20 09:21 Aspirin 300 Mg Suppository ND 300 mg DAILY MICHELLE Administration Atorvastatin Calcium 40 mg 05/24/20 21:00 05/26/20 21:54 Atorvastatin Calcium 40 Mg Tab PO Not Given HS MICHELLE Enoxaparin Sodium 30 mg 05/25/20 09:00 05/27/20 09:14 Enoxaparin Sodium 30 Mg/0.3 Ml Syringe SC 30 mg 0900 MICHELLE Administration Famotidine 20 mg 05/24/20 21:00 05/27/20 09:17 Famotidine 20 Mg Tab PO 20 mg BID MICHELLE Administration Piperacillin Sod/Tazobactam 100 mls @ 200 mls/hr 05/25/20 21:00 05/27/20 09:25 Sod 3.375 gm/ Sodium Chloride IVPB 100 mls 0300,0900,1500,2100 MICHELLE Administration Multivitamins 10 ml/ Chromium/ 2,261 mls @ 94.208 mls/hr 05/26/20 22:00 05/27/20 00:01 Copper/Manganese/Seleni/Zn 1 IV Not Given ml/ Amino Acids/Electrolytes/ 2200 MICHELLE Fat Emulsion Intravenous Lorazepam 0.5 mg 05/25/20 16:05 05/25/20 16:22 Lorazepam 2 Mg/Ml Vial SLOW IVP 0.5 mg Q6H PRN Administration Anxiety/Agitation Sodium Chloride 10 ml 05/24/20 16:34 05/24/20 22:30 Flush - Normal Saline 10 Ml Syringe IVF 10 ml PRN PRN Administration Saline Flush - Exam General Appearance: awake alert Eye: PERRL ENT: normocephalic atraumatic Neck: supple Respiratory: CTAB Cardiovascular: RRR Gastrointestinal: soft Extremities: no cyanosis Skin: normal turgor Neurological: no new deficit Musculoskeletal: normal tone, normal strength, no muscle wasting PSYCH: normal affect, oriented to person Results - Labs Result Diagrams: 05/27/20 03:07 05/27/20 03:07 Lab results: WBC 23.5 thou/uL (4.8-10.8) H 05/27/20 03:07 Hgb 14.1 g/dL (14.0-18.0) 05/27/20 03:07 Hct 41.4 % (42.0-52.0) L 05/27/20 03:07 MCV 94.1 fL (78.0-98.0) 05/27/20 03:07 Plt Count 230 thou/uL (130-400) 05/27/20 03:07 Band Neuts % (Manual) 2 % (5-11) L 05/25/20 04:32 Sodium 137 mmol/L (136-145) 05/27/20 03:07 Potassium 3.1 mmol/L (3.5-5.1) L 05/27/20 03:07 Chloride 103 mmol/L (98-107) 05/27/20 03:07 Carbon Dioxide 22 mmol/L (23-31) L 05/27/20 03:07 BUN 15 mg/dL (8.4-25.7) 05/27/20 03:07 Creatinine 0.68 mg/dL (0.7-1.3) L 05/27/20 03:07 Glucose 86 mg/dL (83-110) 05/27/20 03:07 Lactic Acid 1.7 mmol/L (0.5-2.2) 05/24/20 14:30 Calcium 8.3 mg/dL (7.8-10.44) 05/27/20 03:07 Total Bilirubin 0.6 mg/dL (0.2-1.2) 05/24/20 11:33 AST 14 U/L (5-34) 05/24/20 11:33 ALT 9 U/L (8-55) 05/24/20 11:33 Alkaline Phosphatase 87 U/L (40-110) 05/24/20 11:33 Creatine Kinase 33 U/L (30-200) 05/24/20 11:33 Troponin I 0.011 ng/mL (< 0.028) 05/24/20 11:33 Serum Total Protein 5.2 g/dL (5.8-8.1) L 05/24/20 11:33 Albumin 3.4 g/dL (3.4-4.8) 05/24/20 11:33 Urine Ketones Negative mg/dL (Negative) 05/24/20 11:34 Urine Blood Negative (Negative) 05/24/20 11:34 Urine Nitrite Negative (Negative) 05/24/20 11:34 Ur Leukocyte Esterase 500 Brenna/uL (Negative) A 05/24/20 11:34 Urine RBC 4-6 HPF (0-3) A 05/24/20 11:34 Urine WBC Greater than 50 HPF (0-3) A 05/24/20 11:34 Ur Squamous Epith Cells 0-3 HPF (0-3) 05/24/20 11:34 Urine Bacteria None Seen HPF (None Seen) 05/24/20 11:34 - Radiology Interpretation CT scan - head Additional Comment: CT negative for acute intracranial pathology PN A/P (1) AMS (altered mental status) Code(s): R41.82 - ALTERED MENTAL STATUS, UNSPECIFIED Status: Acute (2) Sepsis Code(s): A41.9 - SEPSIS, UNSPECIFIED ORGANISM Status: Acute Qualifiers: Sepsis type: sepsis due to unspecified organism Sepsis acute organ dysfunction status: without acute organ dysfunction Qualified Code(s): A41.9 - Sepsis, unspecified organism (3) Atrial fibrillation Code(s): I48.91 - UNSPECIFIED ATRIAL FIBRILLATION Status: Acute (4) Metabolic encephalopathy Code(s): G93.41 - METABOLIC ENCEPHALOPATHY Status: Acute (5) BPH (benign prostatic hyperplasia) Code(s): N40.0 - BENIGN PROSTATIC HYPERPLASIA WITHOUT LOWER URINRY TRACT SYMP Status: Chronic (6) CLL (chronic lymphocytic leukemia) Code(s): C91.10 - CHRONIC LYMPHOCYTIC LEUK OF B-CELL TYPE NOT ACHIEVE REMIS Status: Chronic (7) Chronic anticoagulation Code(s): Z79.01 - LONGTERM (CURRENT) USE OF ANTICOAGULANTS Status: Chronic (8) Dementia Code(s): F03.90 - UNSPECIFIED DEMENTIA WITHOUT BEHAVIORAL DISTURBANCE Status: Chronic Qualifiers: Dementia type: Alzheimer's disease Alzheimer's disease onset: unspecified onset Dementia behavioral disturbance: without behavioral disturbance Qualified Code(s): G30.9 - Alzheimer's disease, unspecified; F02.80 - Dementia in other diseases classified elsewhere without behavioral disturbance (9) Acute renal failure Status: Resolved Qualifiers: Acute renal failure type: unspecified Qualified Code(s): N17.9 - Acute kidney failure, unspecified - Plan Daily Plan: PT/OT, speech therapy, DVT proph w/SCDs 89-year-old male presented with altered mental status. Patient does have baseline dementia but altered mental status seems to have been exacerbated secondary to infectious and metabolic abnormalities due to UTI and aspiration pneumonia. Intracranial process seems less likely due to negative head CT and EEG. No focal deficits on exam. Repeat Head CT reviewed which was negative for acute intracranial pathology. EEG reviewed which was negative for seizure activity. Neurochecks every 4 hours. Telemetry Continue home medications. PT/OT/speech. N.p.o. till cleared by speech. Strict control of blood pressure and blood glucose. Continue medical management per primary team. Plan discussed in detail with the nursing staff No further recommendations from neurology perspective
[2020-05-27] MEDS ORDERED: Potassium Chloride 20 MEQ in Premix Bag 1 BAG IVPB SCH (21:00)
[2020-05-27] MEDS ORDERED: Electrolyte Replacement Protoc 1 EACH EACH FS SCH (21:00)
[2020-05-27] MEDS: Atorvastatin Calcium 40 MG TAB PO SCH (21:40)
[2020-05-28] MEDS: Piperacillin/Tazobactam 3.375 GM in Sodium Chloride 0.9% 100 ML IVPB SCH ×4 (03:56→21:09)
[2020-05-28] MEDS ORDERED: Magnesium 2 GM/50 ML 2 GM in Premix Bag 1 BAG IVPB SCH ×2 (06:15→09:00)
[2020-05-28] MEDS ORDERED: Potassium Chloride 20 MEQ TAB PO SCH (06:30)
[2020-05-28] MEDS: Famotidine 20 MG TAB PO SCH ×2 (09:09→21:10)
[2020-05-28] MEDS: Enoxaparin Sodium 30 MG/0.3 ML SYRINGE SC SCH (09:18)
[2020-05-28] MEDS: Aspirin 300 MG Suppository PR SCH (09:34)
[2020-05-28] MEDS ORDERED: Aspirin Chewable 81 MG TAB PO SCH (10:00)
--- NOTE | 2020-05-28 10:29 | PDOC.HOSPP ---
- Subjective Encounter Date: 05/28/20 Encounter Time: 10:23 Subjective: This patient was seen and evaluated this morning. He is doing so much better. He is awake and alert and oriented x4. He also is tolerating his diet well. I will ask physical therapy to help ambulating today. We will continue him on the current antibiotic coverage. I anticipate hopefully within the next 72 hours to be medically optimized [facility] 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 Shyanne Jaime. - Objective Vital Signs & Weight: Vital Signs (12 hours) Temp Pulse Resp BP Pulse Ox 05/28/20 07:54 97 05/28/20 07:45 97.6 F 75 12 133/86 97 05/28/20 04:04 97.8 F 74 16 138/78 98 05/28/20 00:00 98.2 F 89 20 122/84 98 Weight Admit Weight 153 lb 8 oz Weight 153 lb 8 oz I&O: 05/27/20 05/28/20 05/29/20 06:59 06:59 06:59 Intake Total 660 Output Total 400 Balance 260 Result Diagrams: 05/27/20 03:07 05/27/20 03:07 Additional Labs: Accuchecks 05/28/20 05/28/20 05/27/20 06:11 00:38 22:14 POC Glucose 80 103 H 98 05/27/20 05/27/20 05/26/20 17:37 12:06 14:15 POC Glucose 109 H 108 H 60 L 05/26/20 09:28 POC Glucose 58 L* Radiology Reviewed by me: Yes EKG Reviewed by me: Yes Hospitalist ROS - Review of Systems ROS unobtainable: due to mental status Respiratory: reports: shortness of breath Gastrointestinal: reports: nausea - Medication Medications: Active Medications Generic Name Dose Route Start Last Admin Trade Name Freq PRN Reason Stop Dose Admin Atorvastatin Calcium 40 mg 05/24/20 21:00 05/27/20 21:40 Atorvastatin Calcium 40 Mg Tab PO 40 mg HS MICHELLE Administration Enoxaparin Sodium 30 mg 05/25/20 09:00 05/28/20 09:18 Enoxaparin Sodium 30 Mg/0.3 Ml Syringe SC 30 mg 0900 MICHELLE Administration Famotidine 20 mg 05/24/20 21:00 05/28/20 09:09 Famotidine 20 Mg Tab PO 20 mg BID MICHELLE Administration Piperacillin Sod/Tazobactam 100 mls @ 200 mls/hr 05/25/20 21:00 05/28/20 09:08 Sod 3.375 gm/ Sodium Chloride IVPB 100 mls 0300,0900,1500,2100 MICHELLE Administration Magnesium Sulfate 2 gm/ Device 50 mls @ 100 mls/hr 05/28/20 09:00 05/28/20 07:54 IVPB 05/28/20 15:00 50 mls NOW MICHELLE Administration Lorazepam 0.5 mg 05/25/20 16:05 05/25/20 16:22 Lorazepam 2 Mg/Ml Vial SLOW IVP 0.5 mg Q6H PRN Administration Anxiety/Agitation Sodium Chloride 10 ml 05/24/20 16:34 05/27/20 21:41 Flush - Normal Saline 10 Ml Syringe IVF 10 ml PRN PRN Administration Saline Flush - Exam General Appearance: awake alert Eye: PERRL ENT: normocephalic atraumatic, moist mucosa Neck: supple, symmetric, no JVD, no thyromegaly, no lymphadenopathy Heart: RRR Respiratory: CTAB Gastrointestinal: soft, non-tender, non-distended, normal bowel sounds, no palpable masses Musculoskeletal: normal tone, normal strength, generalized weakness, diffuse muscle atrophy Psychiatric: normal affect, normal behavior, oriented to person Hosp A/P (1) Metabolic encephalopathy Code(s): G93.41 - METABOLIC ENCEPHALOPATHY Status: Resolved Plan: This has resolved. This is likely secondary to infectious process including aspiration pneumonia and a UTI. (2) UTI (urinary tract infection) Status: Acute Qualifiers: Urinary tract infection type: acute cystitis Hematuria presence: with hematuria Qualified Code(s): N30.01 - Acute cystitis with hematuria Plan: I will continue antibiotic as above. (3) Dementia Code(s): F03.90 - UNSPECIFIED DEMENTIA WITHOUT BEHAVIORAL DISTURBANCE Status: Chronic Qualifiers: Dementia type: Alzheimer's disease Alzheimer's disease onset: unspecified onset Dementia behavioral disturbance: without behavioral disturbance Qualified Code(s): G30.9 - Alzheimer's disease, unspecified; F02.80 - Dementia in other diseases classified elsewhere without behavioral disturbance Plan: Supportive care as above. (4) Sepsis Code(s): A41.9 - SEPSIS, UNSPECIFIED ORGANISM Status: Resolved Qualifiers: Sepsis type: sepsis due to unspecified organism Sepsis acute organ dysfunction status: without acute organ dysfunction Qualified Code(s): A41.9 - Sepsis, unspecified organism Plan: Sepsis has resolved. It was present on admission secondary to aspiration pneumonia and a UTI. - Plan #1. Metabolic encephalopathy. This seems to have resolved. Suspect encephalopathy related to infectious process. Cannot rule out neurologic findings as well. Stroke evaluation is ongoing. MRI testing is pending this morning. We appreciate neurologist ongoing evaluation. 05/26/2020. He remains encephalopathic for the most part. He was agitated previously and received the Ativan and has been sleeping throughout. I had a chance to discuss with his family and he wants us to continue management as we are doing. 05/27/2020. He seems to be doing much better today. He is more oriented and more alert. We will continue antibiotic 05/28/2020. Encephalopathy has resolved. 2. Urinary tract infection. Urine culture is pending at this time. We will continue Zosyn. He tolerated Rocephin from the emergency room yesterday. 05/26/2020. Urine culture did not show any growth. 05/28/2020. Continue antibiotic as above. 3. Suspected aspiration pneumonia. We will continue Zosyn as above. 05/26/2020. I am going to continue Zosyn. 4. Sepsis. This has resolved. Suspect secondary to #2 and #3 above. Continue antibiotics as above. 5. History of CLL. This will account for the elevated white count with lymphocytic predominance. 6. Suspect Alzheimer's dementia. Supportive care. #7. Dysphagia. We are going to initiate TPN today. 05/27/2020. He unfortunately pulled out his PICC line overnight. He is more awake and alert today and I have requested speech therapy to reevaluate him and make further recommendations. 05/28/2020. Dysphagia has resolved. Patient is now tolerating oral liquid and meals.
--- NOTE | 2020-05-28 11:02 | PQF ---
CLINICAL DOCUMENTATION CLARIFICATION FORM: Dear Dr.E. Xiong Date: 05/28/2020 105 Please exercise your independent, professional judgment in responding to the clarification form. Clinical indicators are provided on the bottom of this form for your review. Please check appropriate box(es): [ ] UTI Due to : [ X ] Suprapubic catheter [ ] UTI Not due to : [ ] Suprapubic catheter UTI Site: [ ] Kidney [ ] Ureter [ ] Bladder [ ] Urethra [ X] Unable to determine Specify Organism (if known): [ ] Unknown organism [ ] Contaminated urine specimen without UTI [ ] Other diagnosis [ ] Unable to determine In addition, please specify: Present on Admission (POA): [ X ] Yes [ ] No [ ] Unable to determine For continuity of documentation, please document condition throughout progress notes and discharge summary. Thank You. To be completed by CDI/Coding staff for physician review: CLINICAL INDICATORS - SIGNS / SYMPTOMS / LABS / RESULTS AND LOCATION IN MR Pt had suprapubic catheter in place upon arrival, urine collected from catheter, yellow in color, and sediment noted ( ED report) 05/24 05/24 WBC 27.4 05/25 WBC 31.3 Sepsis present on admission likely secondary to urinary tract infection (H&P/Inga) 05/24 Sepsis has resolved. Suspect secondary to Urinary tract infection and suspected aspiration pneumonia ( PN/Inga) 05/25 RISK FACTORS / RESULTS AND LOCATION IN MR Advanced age (89) senior living resident, Sepsis, UTI, Suprapubic Catheter present on arrival, (H&P/Inga) 05/24 TREATMENT / RESULTS AND LOCATION IN MR Zosyn IV ( 05/25- present) Vancomycin IV (ED Thank you! CDS Signature: Kenia Serrano,RASHMI Phone #: [phone] Date:05/28/20 This is a permanent part of the Medical Record [facility]
[2020-05-28] MEDS: Lorazepam 2 MG/ML VIAL SLOW IVP PRN (21:08)
[2020-05-28] MEDS: Atorvastatin Calcium 40 MG TAB PO SCH (21:10)
[2020-05-28] MEDS ORDERED: risperiDONE 0.25 MG TAB PO SCH (22:45)
[2020-05-28] MEDS ORDERED: Ziprasidone 20 MG CAP PO SCH (22:45)
[2020-05-29] MEDS: Piperacillin/Tazobactam 3.375 GM in Sodium Chloride 0.9% 100 ML IVPB SCH ×4 (02:07→20:03)
[2020-05-29] MEDS: Lorazepam 2 MG/ML VIAL SLOW IVP PRN ×2 (10:07→18:05)
[2020-05-29] MEDS: Aspirin Chewable 81 MG TAB PO SCH (10:36)
[2020-05-29] MEDS: Enoxaparin Sodium 30 MG/0.3 ML SYRINGE SC SCH (10:36)
[2020-05-29] MEDS: Famotidine 20 MG TAB PO SCH ×2 (10:36→20:03)
--- NOTE | 2020-05-29 10:51 | RAD ---
CHEST 1 VIEW: Date: 05/29/2020 HISTORY: Confusion, combative, shortness of breath. COMPARISON: 05/24/2020. FINDINGS: There is some motion artifact and the patient is somewhat rotated to the left. There is some blunting and indistinction of both costophrenic angles, possibly representing small pleural effusions, as wel l as some evidence for bilateral vascular congestion. Biapical pleural thickening with some right-skyla ed apical pleural calcification. No new confluent pneumonia. IMPRESSION: 1. Motion artifact and rotation. 2. Evidence for small left pleural effusion and bilateral vascular congestion with some patchy incre ased markings bilaterally without confluent lobar pneumonia. 3. Apical pleural thickening with right apical pleural calcification. 4. Marked shoulder degenerative changes with evidence for bilateral significant rotator cuff disease . Continue short-term follow-up. POS: RRE
--- NOTE | 2020-05-29 14:13 | PDOC.HOSPP ---
- Subjective Encounter Date: 05/29/20 Encounter Time: 14:11 Subjective: Patient was seen and evaluated. He seems to be really doing very well. He is tolerating his antibiotics. He is eating better. He is awake and alert. Will complete antibiotic treatment by tomorrow. I am hopeful he should be ready to discharge to his assisted within the next 48 hours. - Objective Vital Signs & Weight: Vital Signs (12 hours) Temp Pulse Resp BP Pulse Ox 05/29/20 11:02 97.3 F L 94 16 123/77 95 05/29/20 07:35 97.5 F L 97 16 159/99 H 96 05/29/20 03:49 97.7 F 89 20 150/84 H 99 Weight Admit Weight 153 lb 8 oz Weight 153 lb 8 oz I&O: 05/28/20 05/29/20 05/30/20 06:59 06:59 06:59 Intake Total 660 890 Output Total 400 1000 Balance 260 -110 Result Diagrams: 05/27/20 03:07 05/27/20 03:07 Additional Labs: Accuchecks 05/29/20 05/29/20 05/29/20 12:10 06:12 00:27 POC Glucose 106 H 83 92 05/28/20 17:40 POC Glucose 106 H Radiology Reviewed by me: Yes EKG Reviewed by me: Yes Hospitalist ROS - Review of Systems ROS unobtainable: due to mental status Constitutional: reports: chills Eyes: reports: conjunctivae inflammation, eyelid inflammation Respiratory: reports: cough, shortness of breath, SOB with excertion Gastrointestinal: reports: nausea - Medication Medications: Active Medications Generic Name Dose Route Start Last Admin Trade Name Freq PRN Reason Stop Dose Admin Aspirin 81 mg 05/29/20 09:00 05/29/20 10:36 Aspirin Chewable 81 Mg Tab PO 81 mg DAILY MICHELLE Administration Atorvastatin Calcium 40 mg 05/24/20 21:00 05/28/20 21:10 Atorvastatin Calcium 40 Mg Tab PO 40 mg HS MICHELLE Administration Enoxaparin Sodium 30 mg 05/25/20 09:00 05/29/20 10:36 Enoxaparin Sodium 30 Mg/0.3 Ml Syringe SC 30 mg 0900 MICHELLE Administration Famotidine 20 mg 05/24/20 21:00 05/29/20 10:36 Famotidine 20 Mg Tab PO 20 mg BID MICHELLE Administration Piperacillin Sod/Tazobactam 100 mls @ 200 mls/hr 05/25/20 21:00 05/29/20 14:08 Sod 3.375 gm/ Sodium Chloride IVPB 100 mls 0300,0900,1500,2100 MICHELLE Administration Lorazepam 0.5 mg 05/25/20 16:05 05/29/20 10:07 Lorazepam 2 Mg/Ml Vial SLOW IVP 0.5 mg Q6H PRN Administration Anxiety/Agitation Metoprolol Succinate 25 mg 05/29/20 09:00 05/29/20 10:36 Metoprolol Succinate Xl 25 Mg Tab PO 25 mg DAILY MICHELLE Administration Sodium Chloride 10 ml 05/24/20 16:34 05/29/20 02:08 Flush - Normal Saline 10 Ml Syringe IVF 10 ml PRN PRN Administration Saline Flush - Exam General Appearance: NAD, awake alert, ill appearing Eye: PERRL, anicteric sclera ENT: normocephalic atraumatic, no oropharyngeal lesions, moist mucosa Neck: supple, symmetric, no JVD, no lymphadenopathy Heart: RRR, no murmur, no gallops, no rubs, normal peripheral pulses Respiratory: CTAB, no wheezes, no rales, no ronchi, normal chest expansion, no tachypnea, normal percussion Gastrointestinal: soft, non-tender, non-distended, normal bowel sounds, no palpable masses Extremities: no cyanosis Skin: normal turgor, no rashes Neurological: cranial nerve grossly intact, normal sensation to touch, no focal deficits Musculoskeletal: generalized weakness, diffuse muscle atrophy Psychiatric: normal affect, A&O x 3 Hosp A/P (1) UTI (urinary tract infection) Status: Acute Qualifiers: Urinary tract infection type: acute cystitis Hematuria presence: with hematuria Qualified Code(s): N30.01 - Acute cystitis with hematuria (2) Dementia Code(s): F03.90 - UNSPECIFIED DEMENTIA WITHOUT BEHAVIORAL DISTURBANCE Status: Chronic Qualifiers: Dementia type: Alzheimer's disease Alzheimer's disease onset: unspecified onset Dementia behavioral disturbance: without behavioral disturbance Qual ified Code(s): G30.9 - Alzheimer's disease, unspecified; F02.80 - Dementia in other diseases classified elsewhere without behavioral disturbance (3) Sepsis Code(s): A41.9 - SEPSIS, UNSPECIFIED ORGANISM Status: Resolved Qualifiers: Sepsis type: sepsis due to unspecified organism Sepsis acute organ dysfunction status: without acute organ dysfunction Qualified Code(s): A41.9 - Sepsis, unspecified organism - Plan #1. Metabolic encephalopathy. This seems to have resolved. Suspect encephalopathy related to infectious process. Cannot rule out neurologic findings as well. Stroke evaluation is ongoing. MRI testing is pending this morning. We appreciate neurologist ongoing evaluation. 05/26/2020. He remains encephalopathic for the most part. He was agitated previously and received the Ativan and has been sleeping throughout. I had a chance to discuss with his family and he wants us to continue management as we are doing. 05/27/2020. He seems to be doing much better today. He is more oriented and more alert. We will continue antibiotic 05/28/2020. Encephalopathy has resolved. 2. Urinary tract infection. Urine culture is pending at this time. We will continue Zosyn. He tolerated Rocephin from the emergency room yesterday. 05/26/2020. Urine culture did not show any growth. 05/28/2020. Continue antibiotic as above. 3. Suspected aspiration pneumonia. We will continue Zosyn as above. 05/26/2020. I am going to continue Zosyn. 05/29/2020. He will complete antibiotic by tomorrow. 4. Sepsis. This has resolved. Suspect secondary to #2 and #3 above. Continue antibiotics as above. 5. History of CLL. This will account for the elevated white count with lymphocytic predominance. 6. Suspect Alzheimer's dementia. Supportive care. #7. Dysphagia. We are going to initiate TPN today. 05/27/2020. He unfortunately pulled out his PICC line overnight. He is more awake and alert today and I have requested speech therapy to reevaluate him and make further recommendations. 05/28/2020. Dysphagia has resolved. Patient is now tolerating oral liquid and meals.
--- NOTE | 2020-05-29 16:49 | PDOC.FMACP ---
Advance Care Planning - Problem (1) Palliative care encounter Status: Acute Code(s): Z51.5 - ENCOUNTER FOR PALLIATIVE CARE (2) AMS (altered mental status) Status: Acute Code(s): R41.82 - ALTERED MENTAL STATUS, UNSPECIFIED (3) Sepsis Status: Resolved Code(s): A41.9 - SEPSIS, UNSPECIFIED ORGANISM Qualifiers: Sepsis type: sepsis due to unspecified organism Sepsis acute organ dysfunction status: without acute organ dysfunction Qualified Code(s): A41.9 - Sepsis, unspecified organism (4) Dementia Status: Chronic Code(s): F03.90 - UNSPECIFIED DEMENTIA WITHOUT BEHAVIORAL DISTURBANCE Qualifiers: Dementia type: Alzheimer's disease Alzheimer's disease onset: unspecified onset Dementia behavioral disturbance: without behavioral disturbance Qualified Code(s): G30.9 - Alzheimer's disease, unspecified; F02.80 - Dementia in other diseases classified elsewhere without behavioral disturbance (5) Acute renal failure Status: Resolved Qualifiers: Acute renal failure type: unspecified Qualified Code(s): N17.9 - Acute kidney failure, unspecified (6) Metabolic encephalopathy Status: Resolved Code(s): G93.41 - METABOLIC ENCEPHALOPATHY - Note Participants: family, surrogate decision-maker, palliative care Summary: Palliative care introduced Advanced Care Planning with patient MPOA. The diagnosis and prognosis and goals of care in relation to resuscitation status were discussed. Appropriate forms and documentation to accomplish the goals of care were discussed. All questions were answered. Completed OOHDNAR with patient MPOA, hospitalist notified and placed on chart for signature. Palliative care will sign off as OOHDNAR complete, and patient unable to compete directives. If we can assist with defining Goal of care, complex decision making, family support, or prognosis disease assist please re consult our team. Please also refer to Palliative care notes in note section. Time Spent (mins): 20
[2020-05-29] MEDS: Atorvastatin Calcium 40 MG TAB PO SCH (20:03)
[2020-05-29] MEDS: Ziprasidone 20 MG CAP PO SCH (20:04)
[2020-05-29] MEDS: risperiDONE 0.25 MG TAB PO SCH (20:04)
[2020-05-29] MEDS: Melatonin 3 MG TAB PO PRN (22:30)
[2020-05-30] MEDS: Lorazepam 2 MG/ML VIAL SLOW IVP PRN (00:16)
[2020-05-30] MEDS: Piperacillin/Tazobactam 3.375 GM in Sodium Chloride 0.9% 100 ML IVPB SCH ×4 (04:03→22:31)
[2020-05-30] MEDS: Enoxaparin Sodium 30 MG/0.3 ML SYRINGE SC SCH (09:21)
[2020-05-30] MEDS: Aspirin Chewable 81 MG TAB PO SCH (09:33)
[2020-05-30] MEDS: Famotidine 20 MG TAB PO SCH ×2 (09:33→22:32)
--- NOTE | 2020-05-30 14:32 | PDOC.HOSPP ---
- Subjective Encounter Date: 05/30/20 Encounter Time: 14:30 Subjective: Patient seen and evaluated today. He is doing very well. He is tolerating his antibiotics well. He is now able to eat his meals well. We will begin the process of discharge planning. I suspect he will be ready for transfer to [facility] tomorrow. - Objective Vital Signs & Weight: Vital Signs (12 hours) Temp Pulse Pulse Pulse Resp BP BP 05/30/20 13:18 84 83 155/94 H 145/99 H 05/30/20 11:45 97.5 F L 79 14 05/30/20 07:43 97.4 F L 81 20 05/30/20 04:28 97.8 F 76 BP Pulse Ox 05/30/20 13:18 05/30/20 11:45 162/98 H 97 05/30/20 07:43 143/92 H 95 05/30/20 04:28 144/85 H 97 Weight Admit Weight 153 lb 8 oz Weight 153 lb 8 oz I&O: 05/29/20 05/30/20 05/31/20 06:59 06:59 06:59 Intake Total 890 300 Output Total 1000 1900 Balance -110 -1600 Result Diagrams: 05/27/20 03:07 05/27/20 03:07 Additional Labs: Accuchecks 05/30/20 05/30/20 05/30/20 10:29 06:41 00:53 POC Glucose 86 89 73 05/29/20 18:09 POC Glucose 89 Radiology Reviewed by me: Yes EKG Reviewed by me: Yes Hospitalist ROS - Review of Systems Constitutional: reports: weakness, malaise Respiratory: reports: shortness of breath, SOB with excertion Cardiovascular: reports: paroxysmal noc. dyspnea Gastrointestinal: reports: nausea - Medication Medications: Active Medications Generic Name Dose Route Start Last Admin Trade Name Freq PRN Reason Stop Dose Admin Hydrocodone Bitart/Acetaminophen 1 tab 05/24/20 16:34 05/29/20 22:30 Hydrocodone/Acetaminophen 5/325 Mg Tablet PO 1 tab Q4H PRN Administration Moderate Pain (4-6) Aspirin 81 mg 05/29/20 09:00 05/30/20 09:33 Aspirin Chewable 81 Mg Tab PO Not Given DAILY MICHELLE Atorvastatin Calcium 40 mg 05/24/20 21:00 05/29/20 20:03 Atorvastatin Calcium 40 Mg Tab PO 40 mg HS MICHELLE Administration Enoxaparin Sodium 30 mg 05/25/20 09:00 05/30/20 09:21 Enoxaparin Sodium 30 Mg/0.3 Ml Syringe SC 30 mg 0900 MICHELLE Administration Famotidine 20 mg 05/24/20 21:00 05/30/20 09:33 Famotidine 20 Mg Tab PO Not Given BID MICHELLE Piperacillin Sod/Tazobactam 100 mls @ 200 mls/hr 05/25/20 21:00 05/30/20 09:21 Sod 3.375 gm/ Sodium Chloride IVPB 100 mls 0300,0900,1500,2100 MICHELLE Administration Lorazepam 0.5 mg 05/25/20 16:05 05/30/20 00:16 Lorazepam 2 Mg/Ml Vial SLOW IVP 0.5 mg Q6H PRN Administration Anxiety/Agitation Melatonin 3 mg 05/28/20 22:33 05/29/20 22:30 Melatonin 3 Mg Tab PO 3 mg HS PRN Administration Insomnia Metoprolol Succinate 25 mg 05/29/20 09:00 05/30/20 09:32 Metoprolol Succinate Xl 25 Mg Tab PO Not Given DAILY MICHELLE Risperidone 0.5 mg 05/29/20 21:00 05/29/20 20:04 Risperidone 0.25 Mg Tab PO 0.5 mg HS MICHELLE Administration Sodium Chloride 10 ml 05/24/20 16:34 05/29/20 02:08 Flush - Normal Saline 10 Ml Syringe IVF 10 ml PRN PRN Administration Saline Flush Ziprasidone 20 mg 05/29/20 21:00 05/29/20 20:04 Ziprasidone 20 Mg Cap PO 20 mg HS MICHELLE Administration - Exam General Appearance: awake alert, ill appearing Eye: PERRL ENT: normocephalic atraumatic, no oropharyngeal lesions, moist mucosa Neck: supple, symmetric, no JVD, no lymphadenopathy Heart: RRR, no murmur, no gallops, no rubs, normal peripheral pulses Respiratory: CTAB, no wheezes, no rales, no ronchi, normal chest expansion, no tachypnea, normal percussion Gastrointestinal: soft, non-tender, non-distended, normal bowel sounds, no palpable masses, no hepatomegaly, no splenomegaly Extremities: no cyanosis Neurological: no focal deficits Musculoskeletal: generalized weakness Psychiatric: normal affect, normal behavior, A&O x 3, oriented to time Hosp A/P (1) UTI (urinary tract infection) Status: Acute Qualifiers: Urinary tract infection type: acute cystitis Hematuria presence: with hematuria Qualified Code(s): N30.01 - Acute cystitis with hematuria (2) Dementia Code(s): F03.90 - UNSPECIFIED DEMENTIA WITHOUT BEHAVIORAL DISTURBANCE Status: Chronic Qualifiers: Dementia type: Alzheimer's disease Alzheimer's disease onset: unspecified onset Dementia behavioral disturbance: without behavioral disturbance Qualified Code(s): G30.9 - Alzheimer's disease, unspecified; F02.80 - Dementia in other diseases classified elsewhere without behavioral disturbance (3) Sepsis Code(s): A41.9 - SEPSIS, UNSPECIFIED ORGANISM Status: Resolved Qualifiers: Sepsis type: sepsis due to unspecified organism Sepsis acute organ dysfun ction status: without acute organ dysfunction Qualified Code(s): A41.9 - Sepsis, unspecified organism - Plan old records reviewed/req, continue antibiotics, PT/OT, out of bed/ambulate #1. Metabolic encephalopathy. This seems to have resolved. Suspect encephalopathy related to infectious process. Cannot rule out neurologic findings as well. Stroke evaluation is ongoing. MRI testing is pending this morning. We appreciate neurologist ongoing evaluation. 05/26/2020. He remains encephalopathic for the most part. He was agitated previously and received the Ativan and has been sleeping throughout. I had a chance to discuss with his family and he wants us to continue management as we are doing. 05/27/2020. He seems to be doing much better today. He is more oriented and more alert. We will continue antibiotic 05/28/2020. Encephalopathy has resolved. 2. Urinary tract infection. Urine culture is pending at this time. We will continue Zosyn. He tolerated Rocephin from the emergency room yesterday. 05/26/2020. Urine culture did not show any growth. 05/28/2020. Continue antibiotic as above. 3. Suspected aspiration pneumonia. We will continue Zosyn as above. 05/26/2020. I am going to continue Zosyn. 05/29/2020. He will complete antibiotic by tomorrow. 4. Sepsis. This has resolved. Suspect secondary to #2 and #3 above. Continue antibiotics as above. 5. History of CLL. This will account for the elevated white count with lymphocytic predominance. 6. Suspect Alzheimer's dementia. Supportive care. #7. Dysphagia. We are going to initiate TPN today. 05/27/2020. He unfortunately pulled out his PICC line overnight. He is more awake and alert today and I have requested speech therapy to reevaluate him and make further recommendations. 05/28/2020. Dysphagia has resolved. Patient is now tolerating oral liquid and meals.
[2020-05-30] MEDS ORDERED: Naloxone HCl 0.4 mg/ml Vial IV SCH (16:15)
[2020-05-30] MEDS: Dextrose 5 %-0.45 % NaCl 1,000 ML IV SCH (16:40)
--- NOTE | 2020-05-30 19:29 | EKG ---
Test Reason : Blood Pressure : / mmHG Vent. Rate : 078 BPM Atrial Rate : 091 BPM P-R Int : 000 ms QRS Dur : 090 ms QT Int : 424 ms P-R-T Axes : 000 -42 047 degrees QTc Int : 483 ms Accelerated Junctional rhythm Left axis deviation Anterior infarct , age undetermined Nonspecific T wave abnormality Prolonged QT Abnormal ECG When compared with ECG of 24-MAY-2020 11:27, (Unconfirmed) Premature ventricular complexes are no longer Present Confirmed by CINDY GUARDADO, DR. Michael ([id number]) on 05/30/2020 7:29:02 PM Referred By: CONSTANCE MADSEN Confirmed By:DR. Fernanda WHITE MD
[2020-05-30] MEDS: risperiDONE 0.25 MG TAB PO SCH (22:32)
[2020-05-30] MEDS: Atorvastatin Calcium 40 MG TAB PO SCH (22:33)
[2020-05-30] MEDS: Ziprasidone 20 MG CAP PO SCH (23:09)
[2020-05-31] MEDS: Piperacillin/Tazobactam 3.375 GM in Sodium Chloride 0.9% 100 ML IVPB SCH ×4 (02:14→22:13)
[2020-05-31] MEDS: Dextrose 5 %-0.45 % NaCl 1,000 ML IV SCH ×2 (08:49→18:23)
[2020-05-31] MEDS: Famotidine 20 MG TAB PO SCH ×2 (09:47→22:12)
[2020-05-31] MEDS: Enoxaparin Sodium 30 MG/0.3 ML SYRINGE SC SCH (09:47)
[2020-05-31] MEDS: Aspirin Chewable 81 MG TAB PO SCH (09:47)
--- NOTE | 2020-05-31 17:49 | PDOC.HOSPP ---
- Subjective Encounter Date: 05/31/20 Encounter Time: 17:47 Subjective: Patient seen and evaluated. Here is somewhat drowsy this morning and difficult to arouse. He does follow commands when he wakes up. He has completed his antibiotic today. I will DC the [place]. Plan is for him to return to group home for skilled therapy. This will likely happen over the weekend. - Objective Vital Signs & Weight: Vital Signs (12 hours) Temp Pulse Resp BP Pulse Ox 05/31/20 15:19 97.5 F L 57 L 16 130/78 97 05/31/20 11:41 97.3 F L 56 L 16 121/66 98 05/31/20 09:54 73 150/90 H 05/31/20 09:44 98 Weight Admit Weight 153 lb 8 oz Weight 153 lb 8 oz I&O: 05/30/20 05/31/20 06/01/20 06:59 06:59 06:59 Intake Total 300 256 720 Output Total 1900 250 Balance -1600 6 720 Result Diagrams: 05/27/20 03:07 05/27/20 03:07 Additional Labs: Accuchecks 05/31/20 05/31/20 05/31/20 12:01 04:43 00:49 POC Glucose 106 H 116 H 133 H 05/30/20 17:42 POC Glucose 75 Radiology Reviewed by me: Yes EKG Reviewed by me: Yes Hospitalist ROS - Review of Systems ROS unobtainable: due to mental status Constitutional: reports: weakness, malaise Respiratory: reports: SOB with excertion Gastrointestinal: reports: nausea - Medication Medications: Active Medications Generic Name Dose Route Start Last Admin Trade Name Freq PRN Reason Stop Dose Admin Hydrocodone Bitart/Acetaminophen 1 tab 05/24/20 16:34 05/29/20 22:30 Hydrocodone/Acetaminophen 5/325 Mg Tablet PO 1 tab Q4H PRN Administration Moderate Pain (4-6) Aspirin 81 mg 05/29/20 09:00 05/31/20 09:47 Aspirin Chewable 81 Mg Tab PO 81 mg DAILY MICHELLE Administration Atorvastatin Calcium 40 mg 05/24/20 21:00 05/30/20 22:33 Atorvastatin Calcium 40 Mg Tab PO 40 mg HS MICHELLE Administration Enoxaparin Sodium 30 mg 05/25/20 09:00 05/31/20 09:47 Enoxaparin Sodium 30 Mg/0.3 Ml Syringe SC 30 mg 0900 MICHELLE Administration Famotidine 20 mg 05/24/20 21:00 05/31/20 09:47 Famotidine 20 Mg Tab PO 20 mg BID MICHELLE Administration Piperacillin Sod/Tazobactam 100 mls @ 200 mls/hr 05/25/20 21:00 05/31/20 14:29 Sod 3.375 gm/ Sodium Chloride IVPB 100 mls 0300,0900,1500,2100 MICHELLE Administration Dextrose/Sodium Chloride 1,000 mls @ 75 mls/hr 05/30/20 16:15 05/31/20 08:49 D5 1/2 Ns IV 1,000 mls .[id number] MICHELLE Administration Melatonin 3 mg 05/28/20 22:33 05/29/20 22:30 Melatonin 3 Mg Tab PO 3 mg HS PRN Administration Insomnia Metoprolol Succinate 25 mg 05/29/20 09:00 05/31/20 09:47 Metoprolol Succinate Xl 25 Mg Tab PO 25 mg DAILY MICHELLE Administration Risperidone 0.5 mg 05/29/20 21:00 05/30/20 22:32 Risperidone 0.25 Mg Tab PO 0.5 mg HS MICHELLE Administration Sodium Chloride 10 ml 05/24/20 16:34 05/29/20 02:08 Flush - Normal Saline 10 Ml Syringe IVF 10 ml PRN PRN Administration Saline Flush Ziprasidone 20 mg 05/29/20 21:00 05/30/20 23:09 Ziprasidone 20 Mg Cap PO 20 mg HS MICHELLE Administration - Exam General Appearance: awake alert, ill appearing Eye: PERRL ENT: normocephalic atraumatic, no oropharyngeal lesions, moist mucosa Neck: supple, no JVD, no lymphadenopathy Respiratory: CTAB, no tachypnea, normal percussion Gastrointestinal: soft, non-tender, non-distended, normal bowel sounds Extremities: 2+ LE edema Musculoskeletal: generalized weakness, diffuse muscle atrophy Psychiatric: somnolent Hosp A/P (1) UTI (urinary tract infection) Status: Acute Qualifiers: Urinary tract infection type: acute cystitis Hematuria presence: with hematuria Qualified Code(s): N30.01 - Acute cystitis with hematuria (2) Dementia Code(s): F03.90 - UNSPECIFIED DEMENTIA WITHOUT BEHAVIORAL DISTURBANCE Status: Chronic Qualifiers: Dementia type: Alzheimer's disease Alzheimer's disease onset: unspecified onset Dementia behavioral disturbance: without behavioral disturbance Qualified Code(s): G30.9 - Alzheimer's disease, unspecified; F02.80 - Dementia in other diseases classified elsewhere without behavioral disturbance (3) Sepsis Code(s): A41.9 - SEPSIS, UNSPECIFIED ORGANISM Status: Resolved Qualifiers: Sepsis type: sepsis due to unspecified organism Sepsis acute organ dysfunction status: without acute organ dysfunction Qualified Code(s): A41.9 - Sepsis, unspecified organism - Plan #1. Metabolic encephalopathy. This seems to have resolved. Suspect encephalopathy related to infectious process. Cannot rule out neurologic findings as well. Stroke evaluation is ongoing. MRI testing is p ending this morning. We appreciate neurologist ongoing evaluation. 05/26/2020. He remains encephalopathic for the most part. He was agitated previously and received the Ativan and has been sleeping throughout. I had a chance to discuss with his family and he wants us to continue management as we are doing. 05/27/2020. He seems to be doing much better today. He is more oriented and more alert. We will continue antibiotic 05/28/2020. Encephalopathy has resolved. 2. Urinary tract infection. Urine culture is pending at this time. We will continue Zosyn. He tolerated Rocephin from the emergency room yesterday. 05/26/2020. Urine culture did not show any growth. 05/28/2020. Continue antibiotic as above. 3. Suspected aspiration pneumonia. We will continue Zosyn as above. 05/26/2020. I am going to continue Zosyn. 05/29/2020. He will complete antibiotic by tomorrow. 4. Sepsis. This has resolved. Suspect secondary to #2 and #3 above. Continue antibiotics as above. 5. History of CLL. This will account for the elevated white count with lymphocytic predominance. 6. Suspect Alzheimer's dementia. Supportive care. #7. Dysphagia. We are going to initiate TPN today. 05/27/2020. He unfortunately pulled out his PICC line overnight. He is more awake and alert today and I have requested speech therapy to reevaluate him and make further recommendations. 05/28/2020. Dysphagia has resolved. Patient is now tolerating oral liquid and meals.
[2020-05-31] MEDS: Atorvastatin Calcium 40 MG TAB PO SCH (22:12)
[2020-05-31] MEDS: Ziprasidone 20 MG CAP PO SCH (22:13)
[2020-05-31] MEDS: risperiDONE 0.25 MG TAB PO SCH (22:13)
[2020-06-01] MEDS: Dextrose 5 %-0.45 % NaCl 1,000 ML IV SCH (02:23)
[2020-06-01] MEDS: Piperacillin/Tazobactam 3.375 GM in Sodium Chloride 0.9% 100 ML IVPB SCH (02:23)
[2020-06-01 06:13] LABS: Anion Gap 12 mmol/L (10-20); BUN (Urea Nitrogen) 11 mg/dL (8.4-25.7); Calc. Creatinine Clearance 71 mL/min (70-130); Calcium 8.5 mg/dL (7.8-10.44); Carbon Dioxide 29 mmol/L (23-31); Chloride 105 mmol/L (98-107); Estimated GFR-MDRD Greater than 90; Glucose 83 mg/dL (83-110); Sodium 143 mmol/L (136-145)
[2020-06-01 06:17] LABS: Potassium 2.9 mmol/L (3.5-5.1)
[2020-06-01 06:28] LABS: Hemoglobin 13.5 g/dL (14.0-18.0); Mean Corpuscular HGB CONC 32.6 g/dL (32.0-36.0); Mean Corpuscular Hemoglobin 31.2 pg (27.0-31.0); Mean Corpuscular Volume 95.7 fL (78.0-98.0); Mean Platelet Volume 6.8 fL (7.4-10.4); Platelet Count 238 thou/uL (130-400); RBC Distribution Width 14.6 % (11.5-14.5); Red Blood Cell (RBC) Count 4.32 mill/uL (4.70-6.10); White Blood Cell (WBC) Count 20.7 thou/uL (4.8-10.8)
[2020-06-01] MEDS ORDERED: Potassium Chloride 20 MEQ TAB PO SCH ×2 (07:15→13:00)
[2020-06-01 08:22] LABS: MDiff Complete? YES; Platelet Morphology Comment Appears Adequate; RBC Morphology Normal
[2020-06-01] MEDS: Enoxaparin Sodium 30 MG/0.3 ML SYRINGE SC SCH (09:40)
[2020-06-01] MEDS: Famotidine 20 MG TAB PO SCH ×2 (09:40→21:28)
[2020-06-01] MEDS: Aspirin Chewable 81 MG TAB PO SCH (09:40)
--- NOTE | 2020-06-01 13:07 | PDOC.HOSPP ---
- Subjective Encounter Date: 06/01/20 Encounter Time: 13:06 Subjective: Patient seems to be doing very well. He was actually up working with physical therapy today when I visited. He answered my questions appropriately. He is getting ready to discharge to rehab once a bed becomes available. Briefly he is an 89-year-old that was admitted to the hospital initially thought to be seizure episode but this was not a seizure. He incidentally was found to have pneumonia suspected from aspiration and also evidence of a urinary tract infection. He required IV antibiotics and cultures were collected. His cultures however has remained negative. - Objective Vital Signs & Weight: Vital Signs (12 hours) Temp Pulse Pulse Pulse Resp BP BP 06/01/20 11:54 97.6 F 60 16 06/01/20 10:48 105 H 84 200/116 H 162/96 H 06/01/20 04:00 98.4 F 70 15 BP Pulse Ox 06/01/20 11:54 149/82 H 99 06/01/20 10:48 06/01/20 04:00 154/85 H 100 Weight Admit Weight 153 lb 8 oz Weight 153 lb 8 oz I&O: 05/31/20 06/01/20 06/02/20 06:59 06:59 06:59 Intake Total 256 720 579 Output Total 250 200 Balance 6 720 379 Result Diagrams: 06/01/20 05:15 06/01/20 05:15 Additional Labs: Accuchecks 06/01/20 06/01/20 06/01/20 10:47 06:22 00:17 POC Glucose 130 H 105 H 102 H 05/31/20 17:57 POC Glucose 105 H Radiology Reviewed by me: Yes EKG Reviewed by me: Yes Hospitalist ROS - Review of Systems ROS unobtainable: due to mental status Constitutional: reports: fever, weakness, malaise Gastrointestinal: reports: nausea Neurological: reports: weakness - Medication Medications: Active Medications Generic Name Dose Route Start Last Admin Trade Name Freq PRN Reason Stop Dose Admin Hydrocodone Bitart/Acetaminophen 1 tab 05/24/20 16:34 05/29/20 22:30 Hydrocodone/Acetaminophen 5/325 Mg Tablet PO 1 tab Q4H PRN Administration Moderate Pain (4-6) Aspirin 81 mg 05/29/20 09:00 06/01/20 09:40 Aspirin Chewable 81 Mg Tab PO 81 mg DAILY MICHELLE Administration Atorvastatin Calcium 40 mg 05/24/20 21:00 05/31/20 22:12 Atorvastatin Calcium 40 Mg Tab PO 40 mg HS MICHELLE Administration Enoxaparin Sodium 30 mg 05/25/20 09:00 06/01/20 09:40 Enoxaparin Sodium 30 Mg/0.3 Ml Syringe SC 30 mg 0900 MICHELLE Administration Famotidine 20 mg 05/24/20 21:00 06/01/20 09:40 Famotidine 20 Mg Tab PO 20 mg BID MICHELLE Administration Dextrose/Sodium Chloride 1,000 mls @ 75 mls/hr 05/30/20 16:15 06/01/20 02:23 D5 1/2 Ns IV 1,000 mls .[id number] MICHELLE Administration Melatonin 3 mg 05/28/20 22:33 05/29/20 22:30 Melatonin 3 Mg Tab PO 3 mg HS PRN Administration Insomnia Metoprolol Succinate 25 mg 05/29/20 09:00 06/01/20 09:40 Metoprolol Succinate Xl 25 Mg Tab PO 25 mg DAILY MICHELLE Administration Risperidone 0.5 mg 05/29/20 21:00 05/31/20 22:13 Risperidone 0.25 Mg Tab PO 0.5 mg HS MICHELLE Administration Sodium Chloride 10 ml 05/24/20 16:34 05/29/20 02:08 Flush - Normal Saline 10 Ml Syringe IVF 10 ml PRN PRN Administration Saline Flush Ziprasidone 20 mg 05/29/20 21:00 05/31/20 22:13 Ziprasidone 20 Mg Cap PO 20 mg HS MICHELLE Administration - Exam General Appearance: NAD, awake alert Eye: PERRL ENT: normocephalic atraumatic, no oropharyngeal lesions, dry oral mucosa Neck: supple, symmetric, no JVD, no lymphadenopathy Heart: RRR, no murmur, no gallops, normal peripheral pulses Respiratory: CTAB, no wheezes, no rales, no ronchi, normal chest expansion Gastrointestinal: soft, non-tender, non-distended Musculoskeletal: generalized weakness, diffuse muscle atrophy Psychiatric: normal affect, normal behavior, A&O x 3 Hosp A/P (1) UTI (urinary tract infection) Status: Resolved Qualifiers: Urinary tract infection type: acute cystitis Hematuria presence: with hematuria Qualified Code(s): N30.01 - Acute cystitis with hematuria (2) Dementia Code(s): F03.90 - UNSPECIFIED DEMENTIA WITHOUT BEHAVIORAL DISTURBANCE Status: Chronic Qualifiers: Dementia type: Alzheimer's disease Alzheimer's disease onset: unspecified onset Dementia behavioral disturbance: without behavioral disturbance Qualified Code(s): G30.9 - Alzheimer's disease, unspecified; F02.80 - Dementia in other diseases classified elsewhere without behavioral disturbance (3) Sepsis Code(s): A41.9 - SEPSIS, UNSPECIFIED ORGANISM Status: Resolved Qualifiers: Sepsis type: sepsis due to unspecified organism Sepsis acute organ dysfunction status: without acute organ dysfunction Qualified Code(s): A41.9 - Sepsis, unspecified organism - Plan #1. Metabolic encephalopathy. This seems to have resolved. Suspect encephalopathy related to infectious process. Cannot rule out neurologic findings as well. Stroke evaluation is ongoing. MRI testing is pending this morning. We appreciate neurologist ongoing evaluation. 05/26/2020. He remains encephalopathic for the most part. He was agitated previously and received the Ativan and has been sleeping throughout. I had a chance to discuss with his family and he wants us to continue management as we are doing. 05/27/2020. He seems to be doing much better today. He is more oriented and more alert. We will continue antibiotic 05/28/2020. Encephalopathy has resolved. 2. Urinary tract infection. Urine culture is pending at this time. We will c ontinue Zosyn. He tolerated Rocephin from the emergency room yesterday. 05/26/2020. Urine culture did not show any growth. 05/28/2020. Continue antibiotic as above. 3. Suspected aspiration pneumonia. We will continue Zosyn as above. 05/26/2020. I am going to continue Zosyn. 05/29/2020. He will complete antibiotic by tomorrow. 4. Sepsis. This has resolved. Suspect secondary to #2 and #3 above. Continue antibiotics as above. 5. History of CLL. This will account for the elevated white count with lymphocytic predominance. 6. Suspect Alzheimer's dementia. Supportive care. #7. Dysphagia. We are going to initiate TPN today. 05/27/2020. He unfortunately pulled out his PICC line overnight. He is more awake and alert today and I have requested speech therapy to reevaluate him and make further recommendations. 05/28/2020. Dysphagia has resolved. Patient is now tolerating oral liquid and meals.
[2020-06-01 13:32] LABS: Anion Gap 14 mmol/L (10-20); BUN (Urea Nitrogen) 9 mg/dL (8.4-25.7); Calc. Creatinine Clearance 73 mL/min (70-130); Carbon Dioxide 24 mmol/L (23-31); Chloride 106 mmol/L (98-107); Estimated GFR-MDRD Greater than 90; Glucose 113 mg/dL (83-110); Potassium 3.9 mmol/L (3.5-5.1); Sodium 140 mmol/L (136-145)
[2020-06-01] MEDS: Atorvastatin Calcium 40 MG TAB PO SCH (21:28)
[2020-06-01] MEDS: Melatonin 3 MG TAB PO PRN (21:28)
[2020-06-01] MEDS: risperiDONE 0.25 MG TAB PO SCH (21:29)
[2020-06-01] MEDS: Ziprasidone 20 MG CAP PO SCH (21:29)
[2020-06-02] MEDS ORDERED: Labetalol HCl 100 MG/20 ML VIAL SLOW IVP PRN (00:29)
[2020-06-02] MEDS ORDERED: Lorazepam 0.5 MG TAB PO SCH (00:30)
[2020-06-02] MEDS: Dextrose 5 %-0.45 % NaCl 1,000 ML IV SCH (00:33)
[2020-06-02 05:09] LABS: Anion Gap 13 mmol/L (10-20); BUN (Urea Nitrogen) 11 mg/dL (8.4-25.7); Calc. Creatinine Clearance 82 mL/min (70-130); Calcium 9.1 mg/dL (7.8-10.44); Carbon Dioxide 24 mmol/L (23-31); Chloride 107 mmol/L (98-107); Estimated GFR-MDRD Greater than 90; Glucose 107 mg/dL (83-110); Potassium 3.3 mmol/L (3.5-5.1); Sodium 141 mmol/L (136-145)
[2020-06-02] MEDS ORDERED: Potassium Chloride 20 MEQ TAB PO SCH (06:30)
[2020-06-02] MEDS: Famotidine 20 MG TAB PO SCH (08:56)
[2020-06-02] MEDS: Aspirin Chewable 81 MG TAB PO SCH (08:56)
[2020-06-02] MEDS: Enoxaparin Sodium 30 MG/0.3 ML SYRINGE SC SCH (08:57)
[2020-06-02] MEDS ORDERED: Vancomycin HCl 25 MG/ML Oral PO SCH (11:00)
[2020-06-02 11:37] VITALS: BP 116/71; TEMP 98
--- NOTE | 2020-06-02 12:13 | CON ---
DATE OF CONSULTATION: 06/02/2020 CHIEF COMPLAINT: Loss of consciousness. REASON FOR CONSULTATION: Suprapubic tube. HISTORY OF PRESENT ILLNESS: This is an 89-year-old male, who is currently a resident at [facility], initially admitted on May 24 after having brief loss of consciousness. Imaging of his head did not show any abnormalities. It was initially thought that he had a urinary tract infection; however, urine culture returned negative. He recently pulled his suprapubic tube, which was initially 18-Israeli catheter and a 16-Israeli catheter was replaced. This has been draining fine. However, he did pull it again overnight. I have been consulted to confirm that a 16-Israeli catheter is reasonable. When it is not removed, the catheter is draining fine and does not seem to be bothering him. He is not able to answer any of my questions and is not conversant today. I do not know why he has this catheter for how long. I do not see any visits with either of my partners in [facility]. His past history is taken from his chart as he is not able to answer any of my questions. PAST MEDICAL HISTORY: 1. Hypertension. 2. Dementia. 3. Reflux. 4. Hyperlipidemia. 5. Hypothyroid. PAST SURGICAL HISTORY: None noted in the chart other than obviously he has had a suprapubic tube placed. FAMILY HISTORY: None that I can find in his chart. SOCIAL HISTORY: Former smoker. Living in assisted. REVIEW OF SYSTEMS: Unable to obtain. PHYSICAL EXAMINATION: GENERAL: No acute distress. The patient does not converse or answer questions. HEENT: Head, normocephalic and atraumatic. Extraocular movements intact. Sclerae are anicteric. NECK: Supple. Trachea midline. HEART: Regular rate and rhythm. LUNGS: Breathing unlabored. Symmetric chest expansion. ABDOMEN: Soft, nontender, nondistended. Suprapubic tube, 16-Israeli Valle in good position, draining clear urine. EXTREMITIES: Without clubbing, cyanosis, or edema. NEURO: He does not answer any of my questions to know if he is oriented. LABORATORY DATA: Reviewed. Urine culture, no growth. Creatinine 0.61. ASSESSMENT AND PLAN: Urinary retention with suprapubic tube. A 16-Israeli Valle suprapubic is perfectly reasonable as it seems to be draining well. It is very likely that he will continue to pull on this. We can try our best to keep the tube out of his reach, but this tends to be very difficult. If he is going to continue with treatments to prolong his life, then the catheter will have to be replaced. If at any point, a decision is made to withdraw care, then we can certainly consider leaving him without a catheter. Please contact me for any further recommendations or issues. Job ID: [id number]
[2020-06-02 13:24] LABS: Potassium 4.1 mmol/L (3.5-5.1)
--- NOTE | 2020-06-02 14:23 | EKG ---
Test Reason : Blood Pressure : / mmHG Vent. Rate : 088 BPM Atrial Rate : 111 BPM P-R Int : 000 ms QRS Dur : 082 ms QT Int : 396 ms P-R-T Axes : 000 -31 047 degrees QTc Int : 479 ms Accelerated Junctional rhythm with occasional Premature ventricular complexes Left axis deviation Abnormal ECG Confirmed by JIMMY RENDON DO ([id number]), mapping editor YUMIKO SCHERER ([id number]) on 06/02/2020 2:23:23 PM Referred By: Confirmed By:JIMMY RENDON DO
--- NOTE | 2020-06-02 17:56 | DIS ---
DATE OF ADMISSION: 05/24/2020 DATE OF DISCHARGE: 06/02/2020 DISCHARGE DISPOSITION: [facility]. DISCHARGE DIAGNOSES: 1. Metabolic encephalopathy. 2. Dementia. 3. Gastroesophageal reflux disease. 4. Hypertension. 5. Hyperlipidemia. 6. Hypothyroidism. 7. Urinary tract infection. 8. Probable aspiration pneumonia. 9. Clostridium difficile diarrhea. 10. Chronic lymphocytic leukemia. 11. Atrial fibrillation. DISCHARGE MEDICATIONS: 1. Oral vancomycin 125 mg p.o. q.6 for 10 to 14 days. 2. Atorvastatin 40 mg p.o. q.h.s. 3. Lipitor 50 mg p.o. b.i.d. 4. MiraLAX 17 g p.o. daily. 5. Pepcid 20 mg p.o. b.i.d. 6. Proscar 5 mg p.o. daily. 7. Aspirin 81 mg p.o. daily. 8. Ambien 10 mg p.o. q.h.s. 9. Zoloft 50 mg p.o. daily. 10. Xanax 0.25 mg p.o. b.i.d. 11. Tylenol 650 mg p.o. q.6. 12. Risperdal 0.5 mg as needed. 13. Levothyroxine 75 mcg p.o. daily. 14. Geodon 20 mg q.h.s. 15. Florastor 250 mg p.o. daily. 16. Flomax 0.4 mg p.o. daily. 17. Dulcolax 10 mg per rectum daily. 18. Clotrimazole as directed twice a day. IMAGING DONE DURING THE HOSPITAL STAY: The patient had a CT scan of the brain, which showed no evidence of any acute intracranial abnormalities. The patient had a CT angiogram of the red [place] of [place] showing no hemodynamically significant stenosis. There was no occlusion or aneurysm. The patient had an echocardiogram, in which the ejection fraction was estimated at 60% to 65%. The aortic valve leaflets were somewhat thickened. The patient had a repeat CT scan of the brain showing no evidence of any hemorrhage or mass and also had a CT scan of the chest, showing some indeterminate lung nodules, and followup CT was recommended in 6 months. There was a question of some bilateral pleural plaques, possible asbestos exposure. CODE STATUS: DNAR. ALLERGIES: TO PENICILLINS. HOSPITAL COURSE: Mr. Santos is an 89-year-old gentleman, who resides at [facility]. He was found to be slumped over and had a momentary loss of consciousness. He was brought via EMS to the ER for evaluation. It was initially thought that he may have suffered a stroke, and therefore, CT scan of the brain as well as CT angiogram were performed. This was essentially negative. He was evaluated by Neurology as well, and it was felt that the metabolic encephalopathy or altered mental status was more likely due to an infectious or metabolic process than it was to a neurological process. He did have evidence of possible urinary tract infection and elevated white blood cell count. Even though in review, his white blood cell count is actually slightly lower while it was initially higher than usual, but he does have a chronically elevated white blood cell count. His symptoms began to improve with treatment, and he was treated for UTI as well as aspiration pneumonia. His urine culture grew Pseudomonas, and chest x-ray was concerning for possible aspiration. Zosyn was used to treat both. He slowly began to improve toward his baseline level of functioning and was subsequently able to be discharged to the inpatient rehabilitation unit for further treatment. Job ID: [id number]
[2020-06-02] MEDS ORDERED: Metoprolol Tartrate 50 MG TAB PO SCH (21:00)
== END 2020-06-02 14:56 | DRG 871 ==
LOC: ERS 10:55 → ERHOLD 15:43 → 2SE 18:19
PROVIDERS: ADMIT Student in an Organized Health Care Education/Training Program; ATTEND Internal Medicine
PROC: 02HV33Z Insertion of Infusion Device into Superior Vena Cava, Percutaneous Approach (ICD-10-PCS; principal; 2020-05-26)
PROC: B5181ZA Fluoroscopy of Superior Vena Cava using Low Osmolar Contrast, Guidance (ICD-10-PCS; 2020-05-26)
DX: A41.9 Sepsis, unspecified organism (principal); G93.41 Metabolic encephalopathy; J69.0 Pneumonitis due to inhalation of food and vomit; T83.518A Infection and inflammatory reaction due to other urinary catheter, initial encounter; I47.1 Supraventricular tachycardia; N39.0 Urinary tract infection, site not specified; N17.9 Acute kidney failure, unspecified; C91.10 Chronic lymphocytic leukemia of B-cell type not having achieved remission; A04.72 Enterocolitis due to Clostridium difficile, not specified as recurrent; Z51.5 Encounter for palliative care; Z66 Do not resuscitate; Y83.9 Surgical procedure, unspecified as the cause of abnormal reaction of the patient, or of later complication, without mention of misadventure at the time of the procedure; R33.9 Retention of urine, unspecified; E03.9 Hypothyroidism, unspecified; I10 Essential (primary) hypertension; N40.1 Benign prostatic hyperplasia with lower urinary tract symptoms; K21.9 Gastro-esophageal reflux disease without esophagitis; E78.00 Pure hypercholesterolemia, unspecified; R13.10 Dysphagia, unspecified; I48.0 Paroxysmal atrial fibrillation; Z20.828 Contact with and (suspected) exposure to other viral communicable diseases; G30.9 Alzheimer's disease, unspecified; F02.80 Dementia in other diseases classified elsewhere, unspecified severity, without behavioral disturbance, psychotic disturbance, mood disturbance, and anxiety; Z90.49 Acquired absence of other specified parts of digestive tract; Z87.891 Personal history of nicotine dependence; Z88.0 Allergy status to penicillin; Z79.899 Other long term (current) drug therapy; Z79.01 Long term (current) use of anticoagulants
CPT/HCPCS: 36415; 36416; 36569; 70450; 70496; 70498; 71045; 71260; 74018; 80048; 80053; 80061; 81001; 81003; 81015; 82550; 83605; 83735; 84484; 85025; 85610; 85730; 87086; 87324; 87449; 87635; 90471; 90662; 90732; 93005; 93010; 93306; 95712; 95819; 95957; 96365; 96367; C1751; G0008; G0009; J0696; J1644; J1650; J2060; J2310; J2543; J3370; J3475; J3480; J3490; Q9967; U0003